=== PATIENT | female | born 1945 | race Caucasian/White ===

== ENCOUNTER 2024-07-31 13:37 | Inpatient (IN) ==
[2024-07-31 14:18] LABS: Appearance Urine Clear (Clear); Bacteria Urine Automated None Seen (None Seen); Bilirubin Urine Negative (Negative); Blood Urine 1+ (Negative); Cast Urine Automated 0-2 /lpf (0-2); Color Urine Yellow; Epithelial Cell Urine Auto 0-2 /hpf (0-2); Glucose Urine UA Negative (Negative); Ketones Urine 1+ (Negative); Leukocyte Esterase Urine Negative (Negative); Nitrite Urine Negative (Negative); Protein Urine Negative (Negative); Specific Gravity Urine 1.011 (1.000-1.030); Urobilinogen Urine Positive (Negative); WBC Urine Automated 0-5 /hpf (0-5); pH Urine 7.5 (4.5-7.5)
--- NOTE | 2024-07-31 14:29 | XRay Report ---
Chest radiograph, one view History: Sepsis Comparison: None Findings: Single AP view of the chest performed. No focal consolidation or pleural effusion. No pneumothorax. The cardiomediastinal silhouette is within normal limits. Normal pulmonary vascularity. No evidence for lymphadenopathy. No visualized bony or soft tissue abnormality. Impression: Normal chest radiograph Electronically signed by Macr Carroll 07-31-2024 2:28 PM
[2024-07-31 14:48] LABS: Basophils # (auto) 0.06 K/uL (0.00-0.20); Basophils % (auto) 0.9 %; Eosinophils # (auto) 0.02 K/uL (0.00-0.50); Eosinophils % (auto) 0.3 %; Hemoglobin 10.5 g/dl (12.0-16.0); Immature Granulocytes # (auto) 0.04 K/uL (0.01-0.20); Immature Granulocytes % (auto) 0.6 %; Lymphocytes # (auto) 0.81 K/uL (1.20-3.40); Lymphocytes % (auto) 12.3 %; Mean Corpuscular Hemoglobin 29.1 pg (25.0-34.0); Mean Corpuscular Hgb Conc 31.8 g/dL (32.0-36.0); Mean Corpuscular Volume 91.4 fL (80.0-100.0); Monocytes # (auto) 0.42 K/uL (0.11-0.59); Monocytes % (auto) 6.4 %; Neutrophils # (auto) 5.22 K/uL (1.40-6.50); Neutrophils % (auto) 79.5 %; Nucleated RBC # (auto) 0.05 K/uL (0.00-0.12); Nucleated RBC % (auto) 0.8 %; Platelet Count 364 K/uL (130-400); RDW Standard Deviation 75.8 fL (36.4-46.3); Red Blood Count 3.61 M/uL (4.20-5.40); White Blood Count 6.57 K/ul (4.8-10.8)
[2024-07-31 15:06] LABS: Albumin Level 4.8 gm/dl (3.4-5.0); BUN Creatinine Ratio 26.9 (10-20); Bilirubin Direct 0.4 mg/dl (0-0.2); Bilirubin,Total 2.3 mg/dl (0.2-1.0); Calcium 9.5 mg/dl (8.6-10.3); Creatinine Clr Calc Pharmacy 72.1 ml/min; Magnesium 1.9 mg/dl (1.7-2.4); Potassium 3.8 mmol/L (3.5-5.1); Total Protein 7.4 gm/dl (6.0-8.3)
[2024-07-31 15:12] LABS: Troponin I High Sensitivity 4.3 pg/ml (0-14)
[2024-07-31 15:13] LABS: Anisocytosis Present; Basophilic Stippling 1+; Polychromasia 2+; Stomatocytes 1+; Tear Drop Cells 1+
--- NOTE | 2024-07-31 15:35 | Emergency Department Note ---
Impression & Plan Stroke, 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ED Provider Note NAME: ALLISON MCLEOD AGE: 79 SEX: F : 1945 ARRIVES VIA: Ambulance INFORMANT: Patient, ED PROVIDER(S): Abiodun Gleason MD CHIEF COMPLAINT: 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HPI: This is a 57-year-old female seen for right leg weakness. Patient states that she had an episode of nausea and vomiting yesterday. This morning she woke up and was weak patient has she had right knee replaced about 2 to 3 years ago. Since then she has had chronic pain in this knee. She notes that today she has had reduced mobility as well as weakness in this extremity. She states she fell to the ground due to weakness. She reports no upper extremity weakness. No fevers, chills, diarrhea, chest pain or shortness of breath. She reports no previous strokes. She states she does not drink much water throughout the day or get much exercise. ROS: See above HPI for pertinent positives & negatives. A total of 10 systems reviewed and were otherwise negative. PAST MEDICAL HISTORY: See Below PAST SURGICAL HISTORY: See Below FAMILY HISTORY: See Below SOCIAL HISTORY: See Below HOME MEDICATIONS: See Below ALLERGIES: See Below VITALS: See Below PHYSICAL EXAMINATION: General: resting comfortably in no acute distress Head: Normocephalic and atraumatic Eyes: Normal inspection, extraocular muscles intact Ear, nose, throat: Normal external exam Neck: Normal range of motion Respiratory: lungs clear to auscultation bilaterally Cardiovascular: Regular rate/rhythm, no murmur GI: soft, nontender, no guarding or rebound Extremities: nontender, moves all extremities Neuro: The patient awake and alert, appropriately conversive, no focal deficits, symmetric faces, strength 4/5 in right lower extremity, strength 5/5 in left lower extremity Skin: Warm, dry, and intact MEDICAL DECISION MAKING: This is a 79-year-old female presenting for right leg weakness. Patient overall appears clinically well but has weakness in the right lower extremity. She stated is chronically weak since the knee surgery but also that her is more weak today. Overall patient is very clinically well but she does have right lower extremity weakness concerning for possible neurologic process but this could be from pain otherwise. No obvious traumas noted to the hip or knee. -Slight anemia. Otherwise no significant electrolyte disturbances, no creatinine elevation, no transaminitis. Urinalysis does not be signs of UTI. -Patient CT imaging of the head does reveal a subacute to chronic lacunar infarct as well as other chronic infarct -Based on this finding, will require admission. Differential diagnosis: Intracranial hemorrhage, stroke, TIA, UTI, arthritis Independent History obtained from: Son and daughter Diagnostics interpreted by me: ECG: ECG independently interpreted by me with normal sinus rhythm, rate of 95, left axis deviation, normal SC, normal QRS, normal QTc, no ST segment elevations consistent with STEMI criteria, PVC/PAC occasionally noted Cardiac Monitoring: An order was placed for continuous cardiac monitoring. The monitor shows a rate of 98 with sinus rhythm. Past Med/Surg History Problem List (Updated 07/31/24 @ 18:24 by Cade Parsons MD) 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Social History Smoking Status: Never smoker Preferred Language: Mongolian Feels Safe at Home: Yes Allergies Allergies Allergy/AdvReac Type Severity Reaction Status Date / Time aspirin AdvReac Mild per pt she Unverified 07/31/24 15:10 gets "really bad heartburn and indigestion" Home Meds Home Medications Medication Instructions Recorded Confirmed acetaminophen 300 mg-codeine 30 mg 1 - 2 tab PO QID PRN Pain 07/31/24 07/31/24 tablet furosemide 20 mg tablet 20 mg PO UD PRN swelling 07/31/24 07/31/24 levothyroxine 100 mcg tablet 100 mcg PO DAILY 07/31/24 07/31/24 Results & Data (ED) Vital Signs Vital Signs - 24 hr 07/31/24 13:44 07/31/24 13:44 07/31/24 13:56 Temperature 36.6 C Temperature Source Oral Pulse Rate 95 H Pulse Rate [Apical] Pulse Rate from SpO2 Sensor Pulse Strength [Apical] Respiratory Rate 18 Respiratory Effort / Characteristics Respiratory Depth Respiratory Pattern Blood Pressure 163/95 H Blood Pressure [Right Arm] Blood Pressure Mean 117 Blood Pressure Mean [Right Arm] Blood Pressure Position [Right Arm] Pulse Oximetry 96 Oxygen Delivery Method Room Air Room Air Room Air Sepsis New/Unexplained Change in Mental Status No Sepsis Action Taken by Nursing No Action Required 07/31/24 14:21 07/31/24 14:33 07/31/24 14:34 Temperature Temperature Source Pulse Rate 100 H 96 H Pulse Rate [Apical] Pulse Rate from SpO2 Sensor 91 H Pulse Strength [Apical] Respiratory Rate 26 H 18 Respiratory Effort / Characteristics Respiratory Depth Respiratory Pattern Blood Pressure 155/82 H Blood Pressure [Right Arm] Blood Pressure Mean 129 Blood Pressure Mean [Right Arm] Blood Pressure Position [Right Arm] Pulse Oximetry 95 95 Oxygen Delivery Method Room Air Room Air Sepsis New/Unexplained Change in Mental Status Sepsis Action Taken by Nursing 07/31/24 14:59 07/31/24 15:00 07/31/24 17:27 Temperature Temperature Source Pulse Rate Pulse Rate [Apical] 95 H 94 H 98 H Pulse Rate from SpO2 Sensor Pulse Strength [Apical] Normal Normal Respiratory Rate 19 17 19 Respiratory Effort / Characteristics Non-Labored Spontaneous Non-Labored Spontaneous Non-Labored Spontaneous Respiratory Depth Normal Normal Normal Respiratory Pattern Regular Regular Regular Blood Pressure Blood Pressure [Right Arm] 155/82 H 142/75 H 115/77 Blood Pressure Mean Blood Pressure Mean [Right Arm] 106 97 89 Blood Pressure Position [Right Arm] Sitting Lying Lying Pulse Oximetry 98 95 95 Oxygen Delivery Method Room Air Room Air Room Air Sepsis New/Unexplained Change in Mental Status Sepsis Action Taken by Nursing Laboratory Data 07/31/24 14:30 07/31/24 14:30 Lab Results 07/31/24 07/31/24 Range/Units 14:30 Unknown WBC 6.57 (4.8-10.8) K/ul RBC 3.61 L (4.20-5.40) M/uL Hgb 10.5 L (12.0-16.0) g/dl Hct 33.0 L (37.0-47.0) % MCV 91.4 (80.0-100.0) fL MCH 29.1 (25.0-34.0) pg MCHC 31.8 L (32.0-36.0) g/dL RDW Std Deviation 75.8 H (36.4-46.3) fL RDW Coeff of Romelia 23.0 H (11.5-14.5) % Plt Count 364 (130-400) K/uL MPV 11.0 (9.4-12.4) fL Immature Gran % (Auto) 0.6 % Neut % (Auto) 79.5 % Lymph % (Auto) 12.3 % [place] % (Auto) 6.4 % Eos % (Auto) 0.3 % Baso % (Auto) 0.9 % Neut # (Auto) 5.22 (1.40-6.50) K/uL Lymph # (Auto) 0.81 L (1.20-3.40) K/uL [place] # (Auto) 0.42 (0.11-0.59) K/uL Eos # (Auto) 0.02 (0.00-0.50) K/uL Baso # (Auto) 0.06 (0.00-0.20) K/uL Immature Gran # (Auto) 0.04 (0.01-0.20) K/uL Absolute Nucleated RBC 0.05 (0.00-0.12) K/uL Nucleated RBC % (auto) 0.8 % Polychromasia 2+ Basophilic Stippling 1+ Anisocytosis Present Tear Drop Cells 1+ Stomatocytes 1+ Sodium 139 (136-145) mmol/L Potassium 3.8 (3.5-5.1) mmol/L Chloride 103 (98-107) mmol/L Carbon Dioxide 30 (21-32) mmol/L Anion Gap 6 (3-11) BUN 14 (6-23) mg/dl Creatinine 0.52 L (0.6-1.2) mg/dl Est Cr Clr Drug Dosing 72.1 ml/min eGFR 93.86 BUN/Creatinine Ratio 26.9 H (10-20) Glucose 101 H (70-99(Fasting)) mg/dl Calcium 9.5 (8.6-10.3) mg/dl Magnesium 1.9 (1.7-2.4) mg/dl Total Bilirubin 2.3 H (0.2-1.0) mg/dl Direct Bilirubin 0.4 H (0-0.2) mg/dl AST 13 (13-39) U/L ALT 11 (7-52) U/L Alkaline Phosphatase 45 (34-104) U/L Troponin I High Sens 4.3 (0-14) pg/ml Total Protein 7.4 (6.0-8.3) gm/dl Albumin 4.8 (3.4-5.0) gm/dl Urine Color Yellow Urine Appearance Clear (Clear) Urine pH 7.5 (4.5-7.5) Ur Specific [place] 1.011 (1.000-1.030) Urine Protein Negative (Negative) Urine Glucose (UA) Negative (Negative) Urine Ketones 1+ H (Negative) Urine Blood 1+ H (Negative) Urine Nitrite Negative (Negative) Urine Bilirubin Negative (Negative) Urine Urobilinogen Positive H (Negative) Ur Leukocyte Esterase Negative (Negative) Urine WBC (Auto) 0-5 (0-5) /hpf Urine RBC (Auto) 11-20 H (0-2) /hpf U Hyaline Cast (Auto) 0-2 (0-2) /lpf U Epithel Cells (Auto) 0-2 (0-2) /hpf Urine Bacteria (Auto) None Seen (None Seen) Imaging Data Radiologist's Impression: Chest X-Ray 07/31/24 13:53 Chest radiograph, one view History: Sepsis Comparison: None Findings: Single AP view of the chest performed. No focal consolidation or pleural effusion. No pneumothorax. The cardiomediastinal silhouette is within normal limits. Normal pulmonary vascularity. No evidence for lymphadenopathy. No visualized bony or soft tissue abnormality. Impression: Normal chest radiograph Electronically signed by Marc Carroll 07-31-2024 2:[address] 07/31/24 15:33 EXAM: CT head/brain wo con CLINICAL HISTORY: R leg weakness TECHNIQUE: Axial non-contrast CT scan of the brain was performed from the skull base to the high parietal region. One of the following dose reduction techniques were utilized for this exam: Automated exposure control, adjustment of the mA and/or kV according to patient size, use of iterative reconstruction. COMPARISON: None. FINDINGS: Brain Parenchyma: Evidence of deep periventricular and subcortical white matter hypodensities consistent with chronic vessel ischemia. Small hypo-dense focus near CSF density is seen in the left basal ganglia likely representing chronic lacunar infarct (best appreciated in sagittal images) Another tiny ill-defined left thalamic hypo dense focus suggesting lacunar infarct of indeterminate age. No other abnormal attenuation of the cerebral hemispheres, cerebellum, and brainstem. No evidence of acute hemorrhage, or mass effect. Calcification seen involving left vertebral artery Ventricular System: Prominent ventricles No evidence of hydrocephalus or ventricular enlargement. Subarachnoid Spaces: Prominent sulci and cisterns. No evidence of subarachnoid hemorrhage or extra-axial fluid collections. Cerebellum and Brainstem: Normal size and signal. No masses, lesions, or areas of abnormal density. Orbits: Normal appearance of the globes, optic nerves, and extraocular muscles. No evidence of orbital masses or abnormal density. Sinuses: Clear paranasal sinuses. No evidence of sinusitis or mucosal thickening. Mastoid Air Cells: Clear mastoid air cells. No evidence of mastoiditis. Skull: Normal skull morphology. IMPRESSION: 1. Left thalamic tiny ill-defined hypo dense focus as described may suggests lacunar infarct of indeterminate age, likely subacute to chronic. MRI study is suggested if warranted clinically. 2. Left basal ganglia chronic lacunar infarct likley chronic as described. 3. Chronic small vessel ischemia with age matched cerebral involutional changes. 4. No acute hemorrhage. Electronically signed by Josué Schaffer 07-31-2024 4:49 PM Discharge Plan Visit Data Chief Complaint: Illness Stated Complaint: ILLNESS ED Provider: Abiodun Gleason Discharge Problem: Stroke, 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Forms Stand Alone Forms: [employer] Prescriptions Prescriptions: No Action acetaminophen-codeine 300-30 mg tablet 1 - 2 tab PO QID PRN (Reason: Pain) Rx Instructions: per pt she usually does 2 tabs tid levothyroxine 100 mcg tablet 100 mcg PO DAILY furosemide 20 mg tablet 20 mg PO UD PRN (Reason: swelling) Rx Instructions: per pt she lois takes a couple times a month Referrals Referrals: Italo Barboza [Primary Care Provider] - Discharge Problem: Stroke Qualifiers: CVA mechanism: unspecified Qualified Code(s): I63.9 - Cerebral infarction, unspecified
--- NOTE | 2024-07-31 16:51 | CT Scan Report ---
EXAM: CT head/brain wo con CLINICAL HISTORY: R leg weakness TECHNIQUE: Axial non-contrast CT scan of the brain was performed from the skull base to the high parietal region. One of the following dose reduction techniques were utilized for this exam: Automated exposure control, adjustment of the mA and/or kV according to patient size, use of iterative reconstruction. COMPARISON: None. FINDINGS: Brain Parenchyma: Evidence of deep periventricular and subcortical white matter hypodensities consistent with chronic vessel ischemia. Small hypo-dense focus near CSF density is seen in the left basal ganglia likely representing chronic lacunar infarct (best appreciated in sagittal images) Another tiny ill-defined left thalamic hypo dense focus suggesting lacunar infarct of indeterminate age. No other abnormal attenuation of the cerebral hemispheres, cerebellum, and brainstem. No evidence of acute hemorrhage, or mass effect. Calcification seen involving left vertebral artery Ventricular System: Prominent ventricles No evidence of hydrocephalus or ventricular enlargement. Subarachnoid Spaces: Prominent sulci and cisterns. No evidence of subarachnoid hemorrhage or extra-axial fluid collections. Cerebellum and Brainstem: Normal size and signal. No masses, lesions, or areas of abnormal density. Orbits: Normal appearance of the globes, optic nerves, and extraocular muscles. No evidence of orbital masses or abnormal density. Sinuses: Clear paranasal sinuses. No evidence of sinusitis or mucosal thickening. Mastoid Air Cells: Clear mastoid air cells. No evidence of mastoiditis. Skull: Normal skull morphology. IMPRESSION: 1. Left thalamic tiny ill-defined hypo dense focus as described may suggests lacunar infarct of indeterminate age, likely subacute to chronic. MRI study is suggested if warranted clinically. 2. Left basal ganglia chronic lacunar infarct likley chronic as described. 3. Chronic small vessel ischemia with age matched cerebral involutional changes. 4. No acute hemorrhage. Electronically signed by Josué Schaffer 07-31-2024 4:49 PM
[2024-07-31] MEDS ORDERED: ACETAMINOPHEN 325 MG TAB PO PRN (18:11)
[2024-07-31] MEDS ORDERED: ALUMINUM/MAGNESIUM SUSP 30 ML UDC PO PRN (18:11)
[2024-07-31] MEDS ORDERED: PHARMACIST DISCHARGE MED REC CONSULT PRN (18:11)
--- NOTE | 2024-07-31 18:31 | History & Physical Report ---
Date of Service July 31, 2024 Assessment & Plan (1) Right leg weakness: Plan: Assessment/plan 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Possible Acute CVA Hx of Prior CVA on CT head Patient presents to the hospital with right lower extremity; Onset was around 11 AM on 07/30 CT head without contrast showed left thalamic tiny ill-defined hypodense focus which may suggest lacunar infarct of indeterminate age. Left basal ganglia chronic lacunar infarct likely chronic. EKG shows sinus rhythm with occasional PVC and PACs Patient presentation concerning for acute CVA; will give aspirin 325 mg, Plavix, Lipitor 40 mg once a day. Patient reports history of reflux with aspirin before but willing to try it again. will add Protonix. Obtain CTA head and neck, MRI brain without contrast Obtain lipid panel, A1c Obtain echocardiogram Telemonitoring PT OT evaluation Neurology consult Anemiahemoglobin of 10.5; normocytic. Unknown baseline. Obtain ferritin, transferrin saturation, vitamin B12 and folic acid level Plan of care discussed with patient's daughter and son at bedside. Answer questions/queries DVT prophylaxis heparin Time spent evaluating patient, direct bedside care, chart review, placing orders , interpretation of diagnostic studies, discussion with consultants, patient, and family members, as well as other required patient management activities is 75 minutes Please note the above document was generated using voice recognition software. It may contain grammatical, syntax or spelling errors. Any formal questions or concerns about the content, text or information contained within the body of this dictation should be directly addressed to the provider for clarification History of Present Illness Chief Complaint: 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for 1 day Primary Care Provider: Italo Barboza History obtained from chart review and interview with the patient Past medical history of Mnire's disease, hypothyroidism, knee surgery Patient presents to the hospital with report of right knee weakness since yesterday. Patient reports that she has acute onset of right lower extremity weakness around 11 AM yesterday. She reports that she was ambulating without any difficulty prior to the onset of the weakness; has been having difficulty with movement ever since the episode. She reports episode of visual blurriness earlier today but denies any weakness/numbness of any other body part, chest pain, shortness of breath, abdominal pain or urinary symptoms. She denies any history of trauma, no history of back pain, numbness/tingling sensation down the leg. On presentation to the ED, she was normotensive, afebrile and saturating well on room air. CBC showed hemoglobin of 10.5. BUN/creatinine within normal limits. Total bilirubin of 2.3 and direct bilirubin 0.4 urinalysis did not suggest infection. CT head without contrast showed left thalamic tiny ill-defined hypodense focus which may suggest lacunar infarct of indeterminate age. Left basal ganglia chronic lacunar infarct likely chronic. Patient was then referred for admission Allergies Allergy/AdvReac Type Severity Reaction Status Date / Time aspirin AdvReac Mild per pt she Unverified 07/31/24 15:10 gets "really bad heartburn and indigestion" Home Medications Medication Instructions Recorded Confirmed Type acetaminophen 300 mg-codeine 30 mg 1 - 2 tab PO QID PRN Pain 07/31/24 07/31/24 History tablet furosemide 20 mg tablet 20 mg PO UD PRN swelling 07/31/24 07/31/24 History levothyroxine 100 mcg tablet 100 mcg PO DAILY 07/31/24 07/31/24 History Past Med/Surg History Problem List (Updated 07/31/24 @ 18:24 by Cade Parsons MD) 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Social History Smoking Status: Never smoker Preferred Language: Indonesian Feels Safe at Home: Yes Review of Systems Review of Systems: All systems reviewed & are unremarkable except as noted in Subjective Physical Exam Physical Exam: On physical examination; Constitutional: WD/WN, vitals as above, NAD, sitting up in bed, pleasant, conversing easily Respiratory: normal respiratory effort, lungs clear to auscultation, no wheeze, rales, rhonchi. Normal insp/exp effort, no accessory muscle use Cardiovascular: RRR, no murmur, no edema Vessels: no JVD or carotid bruit Chest: normal inspection of chest Abdomen: normal bowel sounds, soft, nontender, no hepatosplenomegaly Skin: no rashes, warm and dry normal turgor Neurologic: PERRL, EOMI, accommodation nl, no face palsy, no dysarthria CN's II- XI intact bilaterally. Strength in right lower extremity of 4/5; otherwise strength in all extremities within normal limits. sensation intact Psychiatric: A+Ox3, euthymic affect Results & Data Results & Data Vital Signs (Past 12 Hours) Vital Signs Temp Pulse Pulse Resp BP BP Pulse Ox 07/31/24 17:27 98 H 19 115/77 95 07/31/24 15:00 94 H 17 142/75 H 95 07/31/24 14:59 95 H 19 155/82 H 98 07/31/24 14:34 155/82 H 07/31/24 14:33 96 H 18 95 07/31/24 14:21 100 H 26 H 95 07/31/24 13:56 07/31/24 13:44 07/31/24 13:44 36.6 C 95 H 18 163/95 H 96 O2 Del Method 07/31/24 17:27 Room Air 07/31/24 15:00 Room Air 07/31/24 14:59 Room Air 07/31/24 14:34 07/31/24 14:33 Room Air 07/31/24 14:21 Room Air 07/31/24 13:56 Room Air 07/31/24 13:44 Room Air 07/31/24 13:44 Room Air
[2024-07-31] MEDS: OPTIRAY 320 125ml IV ONE (18:40)
[2024-07-31] MEDS: CLOPIDOGREL BISULFATE 75 MG TAB PO SCH (18:45)
[2024-07-31] MEDS: SODIUM CHLORIDE 0.9% 500 ML IV SCH (18:45)
[2024-07-31] MEDS: ASPIRIN CHEW 324 MG PO STA (18:45)
[2024-07-31] MEDS: PANTOprazole 40 MG TAB PO STA (18:45)
[2024-07-31] MEDS: ATORVASTATIN 40 MG TAB PO SCH (18:45)
--- NOTE | 2024-07-31 19:15 | CT Scan Report ---
CT angiogram of the neck CT angiogram of the brain with contrast Provided History: Neuro deficit Comparison: None Technique: HEAD and NECK CTA: During rapid bolus intravenous injection of nonionic contrast material, axial images were obtained using thin collimation multidetector helical technique from the base of the neck through the of vertex of the head. This CT angiogram data was reconstructed at thin intervals with mild overlap. 3D reconstructions were obtained. The axial source images, multiplanar reformations, 3D reconstructions in both maximum intensity projection display and volume rendered models were reviewed. Dose reduction techniques were achieved by using automatic exposure control and/or adjustment of mA and/or kV according to patient size and/or use of iterative reconstruction technique. Findings: Head CTA demonstrates no aneurysm or stenosis of the major intracranial arteries. Neck CTA demonstrates no stenosis of the major cervical arteries. Tortuosity with a retrotracheal course of the right common carotid artery. There are moderate calcifications at the carotid bulbs bilaterally without hemodynamically significant stenosis. There is a retropharyngeal course bilaterally of the internal carotid arteries. The origins of the great vessels from the aortic arch are patent. No mass is noted within the visualized portions of the cervical soft tissues or lung apices. Impression: 1. Head CTA demonstrates no aneurysm or stenosis of the major intracranial arteries, 2. Neck CTA demonstrates no stenosis of the major cervical arteries. Electronically signed by Marc Carroll 07-31-2024 7:15 PM
[2024-07-31] MEDS: HEPARIN SOD 5,000 UNIT/0.5 ML VIAL SQ SCH (21:51)
[2024-08-01] MEDS: ACETAMINOPHEN W/CODEINE #3 1 TAB PO PRN
--- NOTE | 2024-08-01 01:36 | Magnetic Resonance Report ---
Exam(s): MRI HEAD Without Contrast EXAM: MR Head Without Intravenous Contrast CLINICAL HISTORY: Reason for exam: concern for stroke. TECHNIQUE: Magnetic resonance images of the head/brain without intravenous contrast in multiple planes. COMPARISON: Prior head CT from July 31, 2024. FINDINGS: Brain: There is a small acute/subacute ischemic injury of the left thalamus without evidence of hemorrhagic transformation. There is a remote intraparenchymal hemorrhage in the left thalamus with hemosiderin staining. Moderate nonspecific white matter changes. No mass. No acute hemorrhage. The flow voids at the base the brain are intact. Ventricles: Unremarkable. No ventriculomegaly. Bones/joints: There is loss of normal T1 bright bone marrow signal within the calvarium, skull base and proximal cervical spine concerning for bone marrow replacement process. No acute fracture. Sinuses: Unremarkable as visualized. No acute sinusitis. Mastoid air cells: Unremarkable as visualized. No mastoid effusion. Orbits: Unremarkable as visualized. IMPRESSION: There is a small acute/subacute ischemic injury of the left thalamus without evidence of hemorrhagic transformation. Communications: Verify Receipt Electronically signed by: Nemo Rosen MD 08/01/24 01:35 AM
[2024-08-01] MEDS: LEVOTHYROXINE SODIUM 100 MCG TABLET PO SCH (05:20)
[2024-08-01 06:11] LABS: Basophils # (auto) 0.07 K/uL (0.00-0.20); Basophils % (auto) 1.2 %; Eosinophils # (auto) 0.02 K/uL (0.00-0.50); Eosinophils % (auto) 0.3 %; Hematocrit (blood only) 27.2 % (37.0-47.0); Hemoglobin 8.5 g/dl (12.0-16.0); Immature Granulocytes # (auto) 0.03 K/uL (0.01-0.20); Immature Granulocytes % (auto) 0.5 %; Lymphocytes # (auto) 1.41 K/uL (1.20-3.40); Lymphocytes % (auto) 23.6 %; Mean Corpuscular Hemoglobin 28.8 pg (25.0-34.0); Mean Corpuscular Hgb Conc 31.3 g/dL (32.0-36.0); Mean Corpuscular Volume 92.2 fL (80.0-100.0); Mean Platelet Volume 11.5 fL (9.4-12.4); Monocytes # (auto) 0.56 K/uL (0.11-0.59); Monocytes % (auto) 9.4 %; Neutrophils # (auto) 3.88 K/uL (1.40-6.50); Nucleated RBC # (auto) 0.06 K/uL (0.00-0.12); Platelet Count 297 K/uL (130-400); RDW Coefficient of Variation 23.3 % (11.5-14.5); Red Blood Count 2.95 M/uL (4.20-5.40); White Blood Count 5.97 K/ul (4.8-10.8)
[2024-08-01 06:33] LABS: BUN Creatinine Ratio 29.8 (10-20); Calcium 8.3 mg/dl (8.6-10.3); Creatinine Clr Calc Pharmacy 79.7 ml/min; Potassium 3.4 mmol/L (3.5-5.1)
[2024-08-01 06:47] LABS: Anisocytosis Present; Polychromasia 2+; Tear Drop Cells 1+
[2024-08-01 06:53] LABS: Ferritin 1286.7 ng/ml (8-388)
[2024-08-01 06:54] LABS: Folate (Folic Acid),Ser orPlas 13.26 ng/ml (>5.38)
[2024-08-01] MEDS: ASPIRIN 81 MG ECTAB PO SCH (07:37)
[2024-08-01] MEDS: PANTOprazole 40 MG TAB PO SCH (07:38)
[2024-08-01 07:57] LABS: Estimated Average Glucose 91 mg/dl; Hemoglobin A1C 4.8 % (4.5-5.6)
[2024-08-01 09:16] LABS: Chol HDL Ratio 2.5 (0-5)
--- NOTE | 2024-08-01 10:55 | Neurology Consultation ---
Date of Consultation August 01, 2024 Assessment & Plan (1) Acute ischemic stroke: Left thalamic stroke If patient is unable to tolerate ASA then recommend clopidogrel 300mg load followed by 75mg daily if able to undergo platelet reactivity testing to confirm response; otherwise recommend Brillinta 90mg BID in addition to high dose statin therapy. Recommend continued stroke work up to include the following: Echocardiogram as part of complete stroke workup Continue frequent neurological assessments Obtain stat CT brain without contrast for any acute neurological decline Continue to monitor/control blood pressure & blood glucose Continue to monitor telemetry closely Recommend ZioPatch at DC if no evidence of arrhythmia during inpatient monitoring Continue to monitor renal and hepatic function, keep euvolemic Metabolic workup should include hgbA1c, fasting lipids, homocysteine, TSH, D Dimer, RPR, urinalysis Ok from neurology perspective for VTE prophylaxis PT/OT/SLT to eval and treat Recommend eval for CLAUDIA and consider outpatient polysomnography Telehealth Consultation Telehealth Information Telehealth Information: I performed this visit using a real-time telehealth connection between my location and the patients location ([facility]). After connecting through interactive tele-video, patient was identified by name and date of and/or wristband check.Patient (or authorized healthcare chemical sales representative) was informed that this was a telemedicine visit and it was being conducted confidentially over secure lines. My office door was closed and no one else was present in the room with me.Patient (or authorized healthcare chemical sales representative) provided consent to proceed with the visit, expressed an understanding of privacy and security of the telemedicine visit, and gave p ermission to have a hospital chemical sales representative in the room in order to assist with the visit and to conduct portions of the visit, as needed. I informed the patient (or authorized healthcare chemical sales representative) that I reviewed their record and presented the opportunity for them to ask any questions regarding the visit today. The patient agreed to participate. History of Present Illness Reason for Consultation: Stroke like symptoms Requesting Physician: Dr. Trejo Attending Physician: Elina Trejo MD History of Present Illness 79yo right handed female reportedly began having dital RLE weakness and "floppiness" starting Thursday at approx 11AM. 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 She has undergone stroke imaging including CT brain without contrast, personally reviewed today, revealing no overt evidence of hemorrhage. CT angiographic studies of head and neck, also personally reviewed today, reveal no overt evidence of large vessel occlusion or significant/flow limiting stenosis. MRI brain without contrast depicts area of acute to subacute ischemic stroke deep left subcortical thalamic region. I have performed televideo consultation. She is alert & oriented; able to answer all questions appropriately, name objects on televideo monitor, repeat phrases and perform complex/embedded commands without deficit. Neurological exam reveals mild RLE weakness and very mild RUE drift. She reports feeling decreased right hand luster applicator which has vastly improved and also notes having difficultly with writing for the last week. She denies hx of trauma or changes in activity recently. No reported cephalgia or cervicalgia. Denies chest pain/palpitations or shortness of breath. No reported changes in vision hearing dizziness syncope seizure like activity or paresthesia. Denies recent fevers chills nausea vomiting changes in bowels or bladder. Denies recent medication changes, recent illness or sick contacts, no reported recent travel. Allergies Allergy/AdvReac Type Severity Reaction Status Date / Time aspirin AdvReac Mild per pt she Unverified 07/31/24 15:10 gets "really bad heartburn and indigestion" Home Medications Medication Instructions Recorded Confirmed Type acetaminophen 300 mg-codeine 30 mg 1 - 2 tab PO QID PRN Pain 07/31/24 07/31/24 History tablet furosemide 20 mg tablet 20 mg PO UD PRN swelling 07/31/24 07/31/24 History levothyroxine 100 mcg tablet 100 mcg PO DAILY 07/31/24 07/31/24 History Patient History Social History Smoking Status: Never smoker Hx Alcohol Use: No Hx Substance Use: No Preferred Language: Croatian Communication Ability: Effective Shipping/Receiving Clerk Required: No Beliefs That Will Affect Care: None Current Living Situation: Family Current Living Situation Comment: home with son Other Information That Helps Us Care for You: No Feels Safe at Home: Yes Safety Concerns: Feels Safe At This Time Assistive Devices: Cane, Denture - Upper, Denture - Lower, Glasses, Walker and Wheelchair Physical Exam Neurological Examination: Mental Status: Awake and alert. Oriented to person, place, and time. Fluency naming repetition and comprehension appear grossly intact. Affect remains appropriate. CN testing: I: Deferred II: Reports no changes in visual acuity III/IV/: No evidence of gaze preference, hippus, nystagmus or roving eye movements V: Facial sensation reportedly grossly intact to light touch bilaterally VII: Facial movements appear without evidence of asymmetry VIII: Hearing -chronic unilateral hearing loss IX/X: Palate is unable to be accurately assess via telemedicine XI: Shoulder shrug appears symmetric/ grossly intact bilaterally XII: Tongue protrudes midline without evidence of biting Motor exam: Mild right hemiparesis=RLE>RUE- improving/nearly resolved Sensory: Sensation is reportedly grossly intact throughout Coordination: No apparent evidence of dysmetria or dysdiadochokinesia Reflexes: Deferred Gait: Deferred Results & Data Vital Signs (Past 12 Hours) Vital Signs Temp Pulse Pulse Pulse Resp BP Pulse Ox 08/01/24 08:21 37.9 C H 84 17 136/78 94 08/01/24 07:00 77 08/01/24 03:36 36.2 C L 75 16 122/68 94 O2 Del Method 08/01/24 08:21 Room Air 08/01/24 07:00 08/01/24 03:36 Room Air Laboratory Results Abnormal lab results 07/31/24 07/31/24 08/01/24 Range/Units 14:30 Unknown 05:20 RBC 3.61 L 2.95 L (4.20-5.40) M/uL Hgb 10.5 L 8.5 L (12.0-16.0) g/dl Hct 33.0 L 27.2 L (37.0-47.0) % MCHC 31.8 L 31.3 L (32.0-36.0) g/dL RDW Std Deviation 75.8 H 76.0 H (36.4-46.3) fL RDW Coeff of Romelia 23.0 H 23.3 H (11.5-14.5) % Lymph # (Auto) 0.81 L (1.20-3.40) K/uL Potassium 3.4 L (3.5-5.1) mmol/L Creatinine 0.52 L 0.47 L (0.6-1.2) mg/dl BUN/Creatinine Ratio 26.9 H 29.8 H (10-20) Glucose 101 H (70-99(Fasting)) mg/dl Calcium 8.3 L (8.6-10.3) mg/dl Transferrin 151 L (200-360) mg/dl Ferritin 1286.7 H (8-388) ng/ml Total Bilirubin 2.3 H (0.2-1.0) mg/dl Direct Bilirubin 0.4 H (0-0.2) mg/dl Urine Ketones 1+ H (Negative) Urine Blood 1+ H (Negative) Urine Urobilinogen Positive H (Negative) Urine RBC (Auto) 11-20 H (0-2) /hpf Diagnostic Findings Chest X-Ray 07/31/24 13:53 Chest radiograph, one view History: Sepsis Comparison: None Findings: Single AP view of the chest performed. No focal consolidation or pleural effusion. No pneumothorax. The cardiomediastinal silhouette is within normal limits. Normal pulmonary vascularity. No evidence for lymphadenopathy. No visualized bony or soft tissue abnormality. Impression: Normal chest radiograph Electronically signed by Marc Carroll 07-31-2024 2:[address] 07/31/24 15:33 EXAM: CT head/brain wo con CLINICAL HISTORY: R leg weakness TECHNIQUE: Axial non-contrast CT scan of the brain was performed from the skull base to the high parietal region. One of the following dose reduction techniques were utilized for this exam: Automated exposure control, adjustment of the mA and/or kV according to patient size, use of iterative reconstruction. COMPARISON: None. FINDINGS: Brain Parenchyma: Evidence of deep periventricular and subcortical white matter hypodensities consistent with chronic vessel ischemia. Small hypo-dense focus near CSF density is seen in the left basal ganglia likely representing chronic lacunar infarct (best appreciated in sagittal images) Another tiny ill-defined left thalamic hypo dense focus suggesting lacunar infarct of indeterminate age. No other abnormal attenuation of the cerebral hemispheres, cerebellum, and brainstem. No evidence of acute hemorrhage, or mass effect. Calcification seen involving left vertebral artery Ventricular System: Prominent ventricles No evidence of hydrocephalus or ventricular enlargement. Subarachnoid Spaces: Prominent sulci and cisterns. No evidence of subarachnoid hemorrhage or extra-axial fluid collections. Cerebellum and Brainstem: Normal size and signal. No masses, lesions, or areas of abnormal density. Orbits: Normal appearance of the globes, optic nerves, and extraocular muscles. No evidence of orbital masses or abnormal density. Sinuses: Clear paranasal sinuses. No evidence of sinusitis or mucosal thickening. Mastoid Air Cells: Clear mastoid air cells. No evidence of mastoiditis. Skull: Normal skull morphology. IMPRESSION: 1. Left thalamic tiny ill-defined hypo dense focus as described may suggests lacunar infarct of indeterminate age, likely subacute to chronic. MRI study is suggested if warranted clinically. 2. Left basal ganglia chronic lacunar infarct likley chronic as described. 3. Chronic small vessel ischemia with age matched cerebral involutional changes. 4. No acute hemorrhage. Electronically signed by Josué Schaffer 07-31-2024 4:49 PM Brain MRI 07/31/24 18:11 CR Exam(s): MRI HEAD Without Contrast EXAM: MR Head Without Intravenous Contrast CLINICAL HISTORY: Reason for exam: concern for stroke. TECHNIQUE: Magnetic resonance images of the head/brain without intravenous contrast in multiple planes. COMPARISON: Prior head CT from July 31, 2024. FINDINGS: Brain: There is a small acute/subacute ischemic injury of the left thalamus without evidence of hemorrhagic transformation. There is a remote intraparenchymal hemorrhage in the left thalamus with hemosiderin staining. Moderate nonspecific white matter changes. No mass. No acute hemorrhage. The flow voids at the base the brain are intact. Ventricles: Unremarkable. No ventriculomegaly. Bones/joints: There is loss of normal T1 bright bone marrow signal within the calvarium, skull base and proximal cervical spine concerning for bone marrow replacement process. No acute fracture. Sinuses: Unremarkable as visualized. No acute sinusitis. Mastoid air cells: Unremarkable as visualized. No mastoid effusion. Orbits: Unremarkable as visualized. IMPRESSION: There is a small acute/subacute ischemic injury of the left thalamus without evidence of hemorrhagic transformation. Communications: Verify Receipt Electronically signed by: Nemo Rosen MD 08/01/24 01:35 AM Head CTA 07/31/24 18:11 CT angiogram of the neck CT angiogram of the brain with contrast Provided History: Neuro deficit Comparison: None Technique: HEAD and NECK CTA: During rapid bolus intravenous injection of nonionic contrast material, axial images were obtained using thin collimation multidetector helical technique from the base of the neck through the of vertex of the head. This CT angiogram data was reconstructed at thin intervals with mild overlap. 3D reconstructions were obtained. The axial source images, multiplanar reformations, 3D reconstructions in both maximum intensity projection display and volume rendered models were reviewed. Dose reduction techniques were achieved by using automatic exposure control and/or adjustment of mA and/or kV according to patient size and/or use of iterative reconstruction technique. Findings: Head CTA demonstrates no aneurysm or stenosis of the major intracranial arteries. Neck CTA demonstrates no stenosis of the major cervical arteries. Tortuosity with a retrotracheal course of the right common carotid artery. There are moderate calcifications at the carotid bulbs bilaterally without hemodynamically significant stenosis. There is a retropharyngeal course bilaterally of the internal carotid arteries. The origins of the great vessels from the aortic arch are patent. No mass is noted within the visualized portions of the cervical soft tissues or lung apices. Impression: 1. Head CTA demonstrates no aneurysm or stenosis of the major intracranial arteries, 2. Neck CTA demonstrates no stenosis of the major cervical arteries. Electronically signed by Marc Carroll 07-31-2024 7:15 PM Neck CTA 07/31/24 18:11 CT angiogram of the neck CT angiogram of the brain with contrast Provided History: Neuro deficit Comparison: None Technique: HEAD and NECK CTA: During rapid bolus intravenous injection of nonionic contrast material, axial images were obtained using thin collimation multidetector helical technique from the base of the neck through the of vertex of the head. This CT angiogram data was reconstructed at thin intervals with mild overlap. 3D reconstructions were obtained. The axial source images, multiplanar reformations, 3D reconstructions in both maximum intensity projection display and volume rendered models were reviewed. Dose reduction techniques were achieved by using automatic exposure control and/or adjustment of mA and/or kV according to patient size and/or use of iterative reconstruction technique. Findings: Head CTA demonstrates no aneurysm or stenosis of the major intracranial arteries. Neck CTA demonstrates no stenosis of the major cervical arteries. Tortuosity with a retrotracheal course of the right common carotid artery. There are moderate calcifications at the carotid bulbs bilaterally without hemodynamically significant stenosis. There is a retropharyngeal course bilaterally of the internal carotid arteries. The origins of the great vessels from the aortic arch are patent. No mass is noted within the visualized portions of the cervical soft tissues or lung apices. Impression: 1. Head CTA demonstrates no aneurysm or stenosis of the major intracranial arteries, 2. Neck CTA demonstrates no stenosis of the major cervical arteries. Electronically signed by Marc Carroll 07-31-2024 7:15 PM Medications Administered Home Medications Medication Instructions Recorded Confirmed Last Taken acetaminophen 300 mg-codeine 30 mg 1 - 2 tab PO QID PRN Pain 07/31/24 07/31/24 07/31/24 06:30 tablet furosemide 20 mg tablet 20 mg PO UD PRN swelling 07/31/24 07/31/24 Unknown levothyroxine 100 mcg tablet 100 mcg PO DAILY 07/31/24 07/31/24 07/31/24 06:30 Active Medications Generic Name Dose Route Start Last Admin Trade Name Nilsonq PRN Reason Stop Dose Admin Acetaminophen/Codeine Phosphate 1 - 2 tab 07/31/24 20:07 08/01/24 00:00 Acetaminophen W/Codeine #3 1 Tab PO 08/30/24 20:06 2 tab QID PRN Administration Pain Aspirin 81 mg 08/01/24 09:00 08/01/24 07:37 Aspirin 81 Mg Ectab PO 08/31/24 08:59 81 mg DAILY JORGE Administration Atorvastatin Calcium 40 mg 07/31/24 18:15 08/01/24 08:33 Atorvastatin 40 Mg Tab PO 08/30/24 18:14 40 mg QAM JORGE Administration Clopidogrel Bisulfate 75 mg 07/31/24 18:15 08/01/24 08:33 Clopidogrel Bisulfate 75 Mg Tab PO 08/30/24 18:14 75 mg QAM JORGE Administration Heparin Sodium (Porcine) 5,000 units 07/31/24 22:00 08/01/24 05:15 Heparin Sod 5,000 Unit/0.5 Ml Vial SQ 08/30/24 21:59 5,000 units Q8 JORGE Administration Levothyroxine Sodium 100 mcg 08/01/24 06:30 08/01/24 05:20 Levothyroxine Sodium 100 Mcg Tablet PO 08/31/24 06:29 100 mcg DAILYBB JORGE Administration Pantoprazole Sodium 40 mg 08/01/24 09:00 08/01/24 07:38 Pantoprazole 40 Mg Tab PO 08/31/24 08:59 40 mg QAM JORGE Administration
[2024-08-01] MEDS ORDERED: MICONAZOLE NITRATE POWDER 85 GM EXT PRN (12:08)
--- NOTE | 2024-08-01 12:25 | Hospitalist Progress Note ---
Date of Service August 01, 2024 Assessment & Plan (1) Right leg weakness: Plan: Ms. Romero is an 79 yo women with past medical history of Mnire's disease, hypothyroidism, knee surgery admitted for stroke. Patient found to have small acute/subacute ischemic injury of the left thalamus without evidence of hemorrhagic transformation. Neurology evaluated with plans for [facility] and rehab. #Acute thalamic stroke MRI with left thalamic stroke Patient tolerating ASA an plavix: continue ECHO 55-60%. mild LVH, G1DD Continue statin monitor on tele PT/OT plans for rehab A1C 4.88, LDL 28 Neurology following, reviewed recommednation Plan for ziopatch as op continue dvt ppx #hypothyroidism repeat tsh continue Synthroid #Sinus tachycardia, PVCs & PACs multiple peaks up to 140s with reports of PAT starting metoprolol 12.5mg bid monitor on tele #Microscopic hematuria repeat UA #anemia normocytic 10.5, down to 8.5 this am; no sign of bleed or instability, unknown baseline b12 829, folate 13.26 adding retic count and Hemoccult all stools Repeat cbc this pm transfuse < 7 DVT prophylaxis heparin dispo contingent on rehab auth Admission and Anticipated Discharge Date Admission Date: July 31, 2024 Subjective Report feeling well today, much better than day before--notes that she is grateful to have come to the hospital as she almost did not originally present Denies any vision changes, chest pain, or other concerns, reports residual RLE weakness denies any side effects from ASA this am denies palpitations Physical Exam Constitutional: WD/WN, vitals as above Respiratory: normal respiratory effort, lungs clear to auscultation Cardiovascular: RRR, no murmur, no edema Neurologic: PERRL, EOMI, accommodation nl, no face palsy, no dysarthria Results & Data Results & Data Vital Signs (Past 12 Hours) Vital Signs Temp Pulse Pulse Pulse Resp BP Pulse Ox 08/01/24 08:21 37.9 C H 84 17 136/78 94 08/01/24 07:00 77 08/01/24 03:36 36.2 C L 75 16 122/68 94 O2 Del Method 08/01/24 08:21 Room Air 08/01/24 07:00 08/01/24 03:36 Room Air Laboratory Results Short CBC 08/01/24 Range/Units 05:20 WBC 5.97 (4.8-10.8) K/ul Hgb 8.5 L (12.0-16.0) g/dl Hct 27.2 L (37.0-47.0) % Plt Count 297 (130-400) K/uL BMP 08/01/24 05:20 Sodium 141 Potassium 3.4 L Chloride 107 Carbon Dioxide 28 BUN 14 Creatinine 0.47 L Glucose 86 Calcium 8.3 L Medications Administered Home Medications Medication Instructions Recorded Confirmed Last Taken acetaminophen 300 mg-codeine 30 mg 1 - 2 tab PO QID PRN Pain 07/31/24 07/31/24 07/31/24 06:30 tablet furosemide 20 mg tablet 20 mg PO UD PRN swelling 07/31/24 07/31/24 Unknown levothyroxine 100 mcg tablet 100 mcg PO DAILY 07/31/24 07/31/24 07/31/24 06:30 Active Medications Generic Name Dose Route Start Last Admin Trade Name Freq PRN Reason Stop Dose Admin Acetaminophen/Codeine Phosphate 1 - 2 tab 07/31/24 20:07 08/01/24 13:08 Acetaminophen W/Codeine #3 1 Tab PO 08/30/24 20:06 2 tab QID PRN Administration Pain Aspirin 81 mg 08/01/24 09:00 08/01/24 07:37 Aspirin 81 Mg Ectab PO 08/31/24 08:59 81 mg DAILY JORGE Administration Atorvastatin Calcium 40 mg 07/31/24 18:15 08/01/24 08:33 Atorvastatin 40 Mg Tab PO 08/30/24 18:14 40 mg QAM JORGE Administration Heparin Sodium (Porcine) 5,000 units 07/31/24 22:00 08/01/24 13:10 Heparin Sod 5,000 Unit/0.5 Ml Vial SQ 08/30/24 21:59 5,000 units Q8 JORGE Administration Levothyroxine Sodium 100 mcg 08/01/24 06:30 08/01/24 05:20 Levothyroxine Sodium 100 Mcg Tablet PO 08/31/24 06:29 100 mcg DAILYBB JORGE Administration Pantoprazole Sodium 40 mg 08/01/24 09:00 08/01/24 07:38 Pantoprazole 40 Mg Tab PO 08/31/24 08:59 40 mg QAM JORGE Administration
--- NOTE | 2024-08-01 13:23 | Pharmacy Report ---
- Date of Service August 01, 2024 - Pharmacy CVA/TIA Medication Review Medications to Prevent Stroke handout has been added to the patients discharge packet. Antiplatelet(s) * aspirin 81mg PO daily (allergy aspirin "real bad heartburn and indigestion" * Alternatives per Neuro,"If patient is unable to tolerate ASA then recommend clopidogrel 300mg load followed by 75mg daily if able to undergo platelet reactivity testing to confirm response; otherwise recommend Brillinta 90mg BID in addition to high dose statin therapy." Cholesterol * High intensity statin: atorvastatin 40 mg daily DVT Prophylaxis * Heparin SQ Therapeutic Anticoagulation * No history of Afib/Aflutter noted Type 2 Diabetes * Patient does not have T2DM, A1c excellent at 4.8%
[2024-08-01] MEDS: POTASSIUM CHLORIDE PWD 20 MEQ PACK PO SCH (17:53)
[2024-08-01] MEDS: METOPROLOL TARTRATE 25 MG TAB PO SCH (18:22)
[2024-08-01 18:52] LABS: INR 1.1 (0.9-1.1); Prothrombin Time 11.8 Seconds (9.0-12.0)
[2024-08-01 19:07] LABS: Hematocrit (blood only) 29.1 % (37.0-47.0); Hemoglobin 9.3 g/dl (12.0-16.0); Immature Retic Fraction 17.3 % (2.3-15.9); Mean Corpuscular Hemoglobin 29.4 pg (25.0-34.0); Mean Corpuscular Volume 92.1 fL (80.0-100.0); Mean Platelet Volume 10.6 fL (9.4-12.4); Nucleated RBC # (auto) 0.08 K/uL (0.00-0.12); Nucleated RBC % (auto) 1.2 %; Platelet Count 335 K/uL (130-400); Platelet Estimate Normal (Normal); RDW Coefficient of Variation 23.2 % (11.5-14.5); RDW Standard Deviation 76.8 fL (36.4-46.3); Red Blood Count 3.16 M/uL (4.20-5.40); Reticulated Hemoglobin 26.4 pg (28.2-36.6); Reticulocyte % 1.26 % (0.50-2.00)
[2024-08-01 20:05] LABS: Appearance Urine Clear (Clear); Bacteria Urine Automated None Seen (None Seen); Bilirubin Urine 1+ (Negative); Blood Urine 2+ (Negative); Color Urine Dark Yellow; Glucose Urine UA Negative (Negative); Ketones Urine 3+ (Negative); Leukocyte Esterase Urine Trace (Negative); Nitrite Urine Positive (Negative); Protein Urine Trace (Negative); Specific Gravity Urine 1.033 (1.000-1.030); Urobilinogen Urine Negative (Negative); WBC Urine Automated 0-5 /hpf (0-5); pH Urine 5.5 (4.5-7.5)
[2024-08-01] MEDS ORDERED: TICAGRELOR 90 MG TAB PO SCH (21:00)
[2024-08-02 06:12] LABS: Basophils # (auto) 0.07 K/uL (0.00-0.20); Basophils % (auto) 1.5 %; Eosinophils # (auto) 0.05 K/uL (0.00-0.50); Eosinophils % (auto) 1.1 %; Hematocrit (blood only) 25.8 % (37.0-47.0); Immature Granulocytes # (auto) 0.03 K/uL (0.01-0.20); Immature Granulocytes % (auto) 0.7 %; Lymphocytes # (auto) 1.23 K/uL (1.20-3.40); Mean Corpuscular Hemoglobin 28.9 pg (25.0-34.0); Mean Corpuscular Volume 93.1 fL (80.0-100.0); Mean Platelet Volume 10.9 fL (9.4-12.4); Monocytes # (auto) 0.58 K/uL (0.11-0.59); Monocytes % (auto) 12.7 %; Nucleated RBC # (auto) 0.07 K/uL (0.00-0.12); Nucleated RBC % (auto) 1.5 %; Platelet Count 276 K/uL (130-400); RDW Coefficient of Variation 23.2 % (11.5-14.5); RDW Standard Deviation 77.6 fL (36.4-46.3); Red Blood Count 2.77 M/uL (4.20-5.40); White Blood Count 4.56 K/ul (4.8-10.8)
[2024-08-02 06:27] LABS: BUN Creatinine Ratio 28.8 (10-20); Calcium 8.1 mg/dl (8.6-10.3); Potassium 3.7 mmol/L (3.5-5.1)
[2024-08-02 06:39] LABS: Stomatocytes 1+; Tear Drop Cells 1+
[2024-08-02 08:04] VITALS: RESP 18
[2024-08-02] MEDS: CLOPIDOGREL BISULFATE 75 MG TAB PO SCH (09:20)
--- NOTE | 2024-08-02 12:54 | Hospitalist Progress Note ---
Date of Service August 02, 2024 Assessment & Plan (1) Right leg weakness: Plan: Ms. Romero is an 79 yo women with past medical history of Mnire's disease, hypothyroidism, knee surgery admitted for stroke. Patient found to have small acute/subacute ischemic injury of the left thalamus without evidence of hemorrhagic transformation. Neurology evaluated with plans for [facility] and rehab. #Acute thalamic stroke MRI with left thalamic stroke Patient tolerating ASA an plavix: continue ECHO 55-60%. mild LVH, G1DD Continue statin monitor on tele PT/OT plans for rehab A1C 4.88, LDL 28 Neurology following, reviewed recommendation Plan for ziopatch as op continue dvt ppx ASA and Plavix for 21 days EOT 08/23, then asa #hypothyroidism tsh wnl continue Synthroid #Sinus tachycardia, PVCs & PACs multiple peaks up to 140s with reports of PAT starting metoprolol 12.5mg bid monitor on tele #Microscopic hematuria repeat UA now with nitrates, suspect uti reports some freuqncy start ctx #anemia normocytic 10.5, down to 8.5 this am; no sign of bleed or instability, unknown baseline b12 829, folate 13.26 adding retic count and Hemoccult all stools Repeat cbc this pm transfuse < 7 DVT prophylaxis heparin dispo contingent on rehab auth Admission and Anticipated Discharge Date Admission Date: July 31, 2024 Subjective Reports much improvement in BLE strength eager about her progress denies any new concerns, denies palpitations or chest pains Physical Exam Constitutional: WD/WN, vitals as above Respiratory: normal respiratory effort, lungs clear to auscultation Cardiovascular: RRR, no murmur, no edema Neurologic: PERRL, EOMI, accommodation nl, no face palsy, no dysarthria Results & Data Results & Data Vital Signs (Past 12 Hours) Vital Signs Temp Pulse Pulse Resp BP Pulse Ox O2 Del Method 08/02/24 11:47 36.9 C 83 18 131/72 94 Room Air 08/02/24 08:03 36.9 C 84 18 132/71 93 Room Air 08/02/24 07:29 116 H 08/02/24 03:34 37.0 C 75 20 116/67 96 Room Air Laboratory Results Short CBC 08/01/24 08/02/24 Range/Units 18:12 05:20 WBC 6.70 4.56 L (4.8-10.8) K/ul Hgb 9.3 L 8.0 L (12.0-16.0) g/dl Hct 29.1 L 25.8 L (37.0-47.0) % Plt Count 335 276 (130-400) K/uL BMP 08/02/24 05:20 Sodium 141 Potassium 3.7 Chloride 108 H Carbon Dioxide 28 BUN 15 Creatinine 0.52 L Glucose 101 H Calcium 8.1 L Urine 08/01/24 Range/Units 18:23 Urine Color Dark Yellow Urine Appearance Clear (Clear) Urine pH 5.5 (4.5-7.5) Ur Specific [place] 1.033 H (1.000-1.030) Urine Protein Trace H (Negative) Urine Glucose (UA) Negative (Negative) Medications Administered Home Medications Medication Instructions Recorded Confirmed Last Taken acetaminophen 300 mg-codeine 30 mg 1 - 2 tab PO QID PRN Pain 07/31/24 07/31/24 07/31/24 06:30 tablet furosemide 20 mg tablet 20 mg PO UD PRN swelling 07/31/24 07/31/24 Unknown levothyroxine 100 mcg tablet 100 mcg PO DAILY 07/31/24 07/31/24 07/31/24 06:30 Active Medications Generic Name Dose Route Start Last Admin Trade Name Freq PRN Reason Stop Dose Admin Acetaminophen/Codeine Phosphate 1 - 2 tab 07/31/24 20:07 08/02/24 09:24 Acetaminophen W/Codeine #3 1 Tab PO 08/30/24 20:06 2 tab QID PRN Administration Pain Aspirin 81 mg 08/01/24 09:00 08/02/24 09:20 Aspirin 81 Mg Ectab PO 08/31/24 08:59 81 mg DAILY JORGE Administration Atorvastatin Calcium 40 mg 07/31/24 18:15 08/02/24 09:20 Atorvastatin 40 Mg Tab PO 08/30/24 18:14 40 mg QAM JORGE Administration Clopidogrel Bisulfate 75 mg 08/02/24 09:00 08/02/24 09:20 Clopidogrel Bisulfate 75 Mg Tab PO 09/01/24 08:59 75 mg QAM JORGE Administration Heparin Sodium (Porcine) 5,000 units 07/31/24 22:00 08/02/24 05:39 Heparin Sod 5,000 Unit/0.5 Ml Vial SQ 08/30/24 21:59 5,000 units Q8 JORGE Administration Levothyroxine Sodium 100 mcg 08/01/24 06:30 08/02/24 05:39 Levothyroxine Sodium 100 Mcg Tablet PO 08/31/24 06:29 100 mcg DAILYBB JORGE Administration Metoprolol Tartrate 12.5 mg 08/01/24 21:00 08/02/24 09:20 Metoprolol Tartrate 25 Mg Tab PO 08/03/24 08:59 12.5 mg BID JORGE Administration Pantoprazole Sodium 40 mg 08/01/24 09:00 08/02/24 09:20 Pantoprazole 40 Mg Tab PO 08/31/24 08:59 40 mg QAM JORGE Administration Potassium Chloride 40 meq 08/01/24 17:30 08/02/24 09:20 Potassium Chloride Pwd 20 Meq Pack PO 08/31/24 17:29 40 meq QAM JORGE Administration
[2024-08-02] MEDS: cefTRIAXone SODIUM 2,000 MG/50 ML BAG IV SCH (14:11)
[2024-08-02] MEDS ORDERED: STROKE PATIENT DISCHARGE STA (15:23)
[2024-08-02 15:34] VITALS: BP 129/61; PULSE 86; TEMP 99.1; O2SAT 95
--- NOTE | 2024-08-02 16:16 | Discharge Summary ---
Discharge Summary Date of Service August 02, 2024 Principal Dx & Hospital Course #1 = Principal Diagnosis (1) Right leg weakness: Ms. Romero is an 79 yo women with past medical history of Mnire's disease, hypothyroidism, knee surgery admitted for stroke. Patient found to have small acute/subacute ischemic injury of the left thalamus without evidence of hemorrhagic transformation. Neurology evaluated with plans for [facility] and rehab. On day of discharge, patient was doing well and motivated for more therapy. She reports some weakness of RLE, but was able to ambulate with assistance of walker. She denies any new neurologic symptoms or concerns. She reports some urinary frequency and iso nitrite +UA and microhematuria started on macrobid. Patient discharged to [facility]. #Acute thalamic stroke MRI with left thalamic stroke Patient tolerating ASA an plavix: continue ECHO 55-60%. mild LVH, G1DD Continue statin monitor on tele PT/OT plans for rehab A1C 4.88, LDL 28 Neurology following, reviewed recommendation Plan for ziopatch as op continue dvt ppx ASA and Plavix for 21 days EOT 08/23, then asa #hypothyroidism tsh wnl continue Synthroid #Sinus tachycardia, PVCs & PACs #NSVT multiple peaks up to 140s with reports of PAT starting metoprolol 12.5mg bid transitioned to metoprolol XL 25mg #Microscopic hematuria repeat UA now with nitrates, suspect uti reports some freuqncy start ctx #anemia normocytic stable, likely dilutional 10.5, down to 8.5 this am; no sign of bleed or instability, unknown baseline b12 829, folate 13.26 Notes For Next Care Provider Tayla morrell as op Medication Changes From Visit [ ]ASA and Plavix for 21 days EOT 08/23, then ASA [ ]Atorvastatin 40mg daily [ ]Metoprolol 25mg XL daily [ ]Pantoprazole 40mg daily [ ]Macrobid 100mg two times a day for three more days Admission HPI Per Admitting Provider History obtained from chart review and interview with the patient Past medical history of Mnire's disease, hypothyroidism, knee surgery Patient presents to the hospital with report of right knee weakness since yesterday. Patient reports that she has acute onset of right lower extremity weakness around 11 AM yesterday. She reports that she was ambulating without any difficulty prior to the onset of the weakness; has been having difficulty with movement ever since the episode. She reports episode of visual blurriness earlier today but denies any weakness/numbness of any other body part, chest pain, shortness of breath, abdominal pain or urinary symptoms. She denies any history of trauma, no history of back pain, numbness/tingling sensation down the leg. On presentation to the ED, she was normotensive, afebrile and saturating well on room air. CBC showed hemoglobin of 10.5. BUN/creatinine within normal limits. Total bilirubin of 2.3 and direct bilirubin 0.4 urinalysis did not suggest infec tion. CT head without contrast showed left thalamic tiny ill-defined hypodense focus which may suggest lacunar infarct of indeterminate age. Left basal ganglia chronic lacunar infarct likely chronic. Patient was then referred for admission Admission Exam Per Admitting Provider Constitutional: WD/WN, vitals as above, NAD, sitting up in bed, pleasant, conversing easily Respiratory: normal respiratory effort, lungs clear to auscultation, no wheeze, rales, rhonchi. Normal insp/exp effort, no accessory muscle use Cardiovascular: RRR, no murmur, no edema Vessels: no JVD or carotid bruit Chest: normal inspection of chest Abdomen: normal bowel sounds, soft, nontender, no hepatosplenomegaly Skin: no rashes, warm and dry normal turgor Neurologic: PERRL, EOMI, accommodation nl, no face palsy, no dysarthria CN's II- XI intact bilaterally. Strength in right lower extremity of 4/5; otherwise strength in all extremities within normal limits. sensation intact Psychiatric: A+Ox3, euthymic affect Discharge Exam Constitutional WD/WN, vitals as above Respiratory normal respiratory effort, lungs clear to auscultation Cardiovascular RRR, no murmur, no edema Neurologic PERRL, EOMI, accommodation nl, no face palsy, no dysarthria Updated Medication List Medication Instructions Recorded Confirmed Type acetaminophen 300 mg-codeine 30 mg 1 - 2 tab PO QID PRN Pain 07/31/24 07/31/24 History tablet furosemide 20 mg tablet 20 mg PO UD PRN swelling 07/31/24 07/31/24 History levothyroxine 100 mcg tablet 100 mcg PO DAILY 07/31/24 07/31/24 History aspirin 81 mg tablet,delayed 81 mg PO DAILY #0 tabs 08/02/24 Rx release atorvastatin 40 mg tablet 40 mg PO QAM #0 tabs 08/02/24 Rx clopidogrel 75 mg tablet 75 mg PO QAM #0 tabs 08/02/24 Rx metoprolol succinate 25 mg 25 mg PO QAM #0 tabs 08/02/24 Rx tablet,extended release 24 hr nitrofurantoin 100 mg PO BID 3 days #6 caps 08/02/24 Rx monohydrate/macrocrystals 100 mg capsule (Macrobid) pantoprazole 40 mg tablet,delayed 40 mg PO QAM #0 tabs 08/02/24 Rx release Hospital Stay Data Consultations 07/31/24 18:12 Consult Neurology Routine Diagnostic Imagining Performed 07/31/24 15:33 CT head/brain wo con Stat 07/31/24 18:11 CT angio head w con Stat CT angio neck with con Stat MR brain wo con Routine Pending Results Patient Have Any Pending Studies at Discharge: No Discharge Instructions Given to Patient (Per Discharging Provider) You were admitted for right leg weakness and found to have an acute ischemic stroke. You were started on the following medications to help prevent future stroke: Atorvastatin 40mg daily Aspirin 81mg daily Plavix 75mg daily until 08/23/2024 You were noted to have abnormal heart beats (nonsustained ventricular tachycardia, PACs) and started on the following: Metoprolol 25mg XL daily You reported history of reflux with aspirin, you were started on the following: Pantoprazole 40mg daily Your urine was suspicious for infection and with your report of frequency you were started on: Marcbid 100mg two times a day for three more days You will be going to rehab for physical therapy and will need to follow up with your PCP Total Time Total Time Spent Total Time Spent (In Minutes): 35
[2024-08-03] MEDS ORDERED: METOPROLOL SUCC 25MG EXT REL TAB PO SCH (09:00)
--- NOTE | 2024-08-04 08:39 | Electrocardiogram Report ---
Test Reason : Blood Pressure : */* mmHG Vent. Rate : 95 BPM Atrial Rate : 95 BPM P-R Int : 160 ms QRS Dur : 86 ms QT Int : 360 ms P-R-T Axes : 59 -37 50 degrees QTcB Int : 452 ms Sinus rhythm with occasional Premature ventricular complexes and Premature atrial complexes Left axis deviation Cannot rule out Anterior infarct , age undetermined Abnormal ECG No previous ECGs available Confirmed by Paul Garcia ([id number]) on 08/04/2024 8:38:49 AM Referred By: REFERRED SELF Confirmed By: Paul Garcia
--- NOTE | 2024-08-04 08:54 | Electrocardiogram Report ---
Test Reason : Blood Pressure : */* mmHG Vent. Rate : 78 BPM Atrial Rate : 78 BPM P-R Int : 166 ms QRS Dur : 86 ms QT Int : 390 ms P-R-T Axes : 49 -35 5 degrees QTcB Int : 444 ms Normal sinus rhythm Left axis deviation Abnormal ECG When compared with ECG of 31-Jul-2024 13:47, (unconfirmed) Premature ventricular complexes are no longer Present Premature atrial complexes are no longer Present ST no longer depressed in Anterior leads T wave inversion now evident in Anterior leads Confirmed by Paul Garcia ([id number]) on 08/04/2024 8:54:12 AM Referred By: REFERRED SELF Confirmed By: Paul Garcia
--- NOTE | 2024-08-04 09:12 | Electrocardiogram Report ---
Test Reason : Blood Pressure : */* mmHG Vent. Rate : 90 BPM Atrial Rate : 90 BPM P-R Int : 152 ms QRS Dur : 82 ms QT Int : 368 ms P-R-T Axes : 44 -35 13 degrees QTcB Int : 450 ms Sinus rhythm with occasional Premature ventricular complexes Left axis deviation Abnormal ECG When compared with ECG of 01-Aug-2024 06:10, (unconfirmed) Premature ventricular complexes are now Present Non-specific change in ST segment in Anterior leads T wave inversion no longer evident in Anterior leads Confirmed by Paul Garcia ([id number]) on 08/04/2024 9:12:18 AM Referred By: REFERRED SELF Confirmed By: Paul Garcia
== END 2024-08-02 16:26 | DRG 65 ==
LOC: ED 13:37 → 2N 18:15 → SUATTDRO 18:15 → 2N 19:38

== ENCOUNTER 2024-10-11 16:49 | Inpatient (IN) ==
--- NOTE | 2024-10-11 17:07 | Emergency Department Note ---
Impression & Plan Chest pain, Hypomagnesemia, Hypocalcemia, Generalized weakness, Acute hypokalemia, Serum total bilirubin elevated ED Provider Note HISTORY OF PRESENT ILLNESS: Patient is a 79-year-old female presenting with generalized weakness, chest pain and diarrhea. Patient reports that 4 days ago she had 24 hours of "intense diarrhea." She reports that she had liquid stool about 15 times throughout the day. She states that her chest pain started about 3 days ago and has been intermittent. She locates the pain to the substernal region of her chest. States that it seems to occur intermittently. Describes it as a pressure sensation. Denies any sensation that her heart is racing. Denies any history of atrial fibrillation. She denies any recent fevers. She has had a decreased oral intake over the last 4 days secondary to feeling generally unwell. She states that she feels very rundown and tired. Denies any DVT or PE history. Denies any history of cardiac stents. She does report that last week she required a transfusion of blood for a GI bleed. ROS: as above PHYSICAL EXAM: Constitutional: Patient appears in no acute distress. HENT: Head: Normocephalic and atraumatic. Eyes: EOMI, PERRL Mouth/Throat: Mucous membranes moist. Neck: Trachea midline. Neck supple. Cardiovascular: Tachycardic with irregularly irregular rhythm. No murmurs, rubs or gallops. Intact distal pulses. Pulmonary/Chest: No respiratory distress. Breath sounds clear and equal bilaterally. No wheezes or rales. Abdominal: Abdomen soft, no tenderness, rebound or guarding. Musculoskeletal: No edema, tenderness or deformity noted. Skin: Warm and dry. No rash, erythema, pallor or cyanosis Psychiatric: Appropriate mood and affect for situation. Neurological: Alert and keenly responsive. CN II-XII grossly intact, moving all extremities equally and fully. MDM: - Vitals signs showed hypertension and tachycardia. - History obtained via patient. History as above. - Chronic conditions affecting care: HLD; hypothyroidism; CVA; GERD - Differential diagnoses include, but are not limited to: Viral syndrome; ACS; acute dehydration; electrolyte abnormality; anemia; UTI; pneumonia - Order placed for continuous cardiac monitoring. At this time, monitor showed rate of 115 bpm with irregular rhythm, per my interpretation. - External medical records reviewed. Discharge summary dated 09/01/2024 was reviewed. Patient was admitted for acute CVA and right sided weakness. She had a hemoglobin of 6.4 on admission and was given a total of 2 units of packed red blood cells. - EKG image interpreted by myself showed atrial fibrillation. Rate tachycardic 152 bpm. QT 332. No acute ischemic changes. - Laboratory workup interpreted by myself showed normal WBC; chronic anemia (Hgb 7.7 - was 8.4 one month ago); elevated INR (1.3); acute hypokalemia (K 2.3); elevated anion gap (12) with only slightly elevated glucose (134); hypocalcemia (Ca 6.0); hypomagnesemia (Mg 0.9); elevated total bilirubin (2.8) with normal AST/ALT; normal TSH; normal lactic acid - Blood cultures obtained - Patient given 1L NS in ER. - Phosphorous lab test ordered, give hypomagnesemia - Given 2g IV magnesium and a total of 30 mEq IV potassium in ER. - After electrolyte replacement and volume replacement, patient's HR improved to 90s-120 bpm. As patient's A-fib with RVR is likely secondary to her electrolyte abnormality, rate control medication was not ordered. - CXR image reviewed by myself is new for pneumonia, per my interpretation. - Stool PCR ordered, but patient unable to provide sample in the emergency department. Patient is not have any reproducible abdominal pain. So though CT abdomen/pelvis was considered, it was not obtained. - Discussion was had with family preservation caseworker about patient's case and need for admission - Hospitalist consulted for admission - Patient admitted to [facility] the [facility] service for further evaluation and management. I have personally spent 46 minutes of critical care time in the direct management of this patient. This includes bedside care, interpretation of diagnostic studies, and testing, discussion with consultants, patient, and family members, and other required patient management activities. This 46 minutes is in excess of all separately billable procedures. ASSESSMENT AND PLAN: Diagnosis: Chest pain; generalized weakness; A-fib with RVR; acute hypokalemia; hypomagnesemia; hypocalcemia; elevated total bilirubin Plan: Admit Past Med/Surg History Problem List (Updated 10/11/24 @ 19:10 by Silvia Whitlock MD) Serum total bilirubin elevated (Acute) Acute hypokalemia (Acute) Generalized weakness (Acute) Hypocalcemia (Acute) Hypomagnesemia (Acute) Chest pain (Acute) Hypocalcemia Hypophosphatemia Atrial fibrillation with RVR Prediabetes History of ventricular tachycardia non-sustained GERD (gastroesophageal reflux disease) Hypothyroidism Hyperlipidemia Hypomagnesemia (Acute) Hypokalemia (Acute) Anemia (Acute) Medical History (Updated 10/11/24 @ 19:10 by Silvia Whitlock MD) Right sided weakness 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Stroke-like symptoms Anemia Stroke-like symptoms Vomiting Acute UTI Acute CVA (cerebrovascular accident) Ambulatory dysfunction 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Sequela, post-stroke Acute ischemic stroke Social History Smoking Status: Never smoker Hx Alcohol Use: No Hx Substance Use: No Preferred Language: Emir[place] Communication Ability: Effective Acls Nurse Required: No Beliefs That Will Affect Care: None Current Living Situation: Family Current Living Situation Comment: home with son Feels Safe at Home: Yes Assistive Devices: Cane, Walker and Wheelchair Allergies Allergies Allergy/AdvReac Type Severity Reaction Status Date / Time aspirin AdvReac Mild per pt she Verified 10/11/24 18:35 gets "really bad heartburn and indigestion" Home Meds Home Medications Medication Instructions Recorded Confirmed acetaminophen 300 mg-codeine 30 mg 1 - 2 tab PO Q6H PRN Pain 07/31/24 10/11/24 tablet levothyroxine 100 mcg tablet 100 mcg PO DAILYBB 07/31/24 10/11/24 bisacodyl 10 mg rectal suppository 10 mg NV DAILY PRN Constipation 09/23/24 10/11/24 polyethylene glycol 3350 17 17 g PO DAILY 09/23/24 10/11/24 gram/dose oral powder (Miralax) ticagrelor 90 mg tablet (Brilinta) 90 mg PO BID 09/23/24 10/11/24 acetaminophen 325 mg rectal 325 mg NV DIRECTED PRN 10/11/24 10/11/24 suppository PAIN/FEVER--UNABLE TO TAKE PO acetaminophen 325 mg tablet 650 mg PO Q4H PRN PAIN/FEVER 10/11/24 10/11/24 (Tylenol) cyanocobalamin (vitamin B-12) 1,000 mcg PO DAILY 10/11/24 10/11/24 1,000 mcg tablet (Vitamin B-12) loperamide 2 mg tablet 2 mg PO DIRECTED PRN Diarrhea 10/11/24 10/11/24 meclizine 12.5 mg tablet 12.5 mg PO TID 10/11/24 10/11/24 nitrofurantoin 100 mg PO BID 10/11/24 10/11/24 monohydrate/macrocrystals 100 mg capsule (Macrobid) Previous Rx's Medication Instructions Recorded aspirin 81 mg tablet,delayed 81 mg PO DAILY #0 tabs 08/02/24 release atorvastatin 40 mg tablet 40 mg PO QAM #0 tabs 08/02/24 metoprolol succinate 25 mg 25 mg PO QAM #0 tabs 08/02/24 tablet,extended release 24 hr pantoprazole 40 mg tablet,delayed 40 mg PO BID #60 tabs 09/01/24 release Results & Data (ED) Vital Signs Vital Signs - 24 hr 10/11/24 16:40 10/11/24 16:40 10/11/24 16:40 Temperature 36.9 C Temperature Source Oral Pulse Rate 122 H Pulse Rate from SpO2 Sensor Respiratory Rate 20 Blood Pressure 145/86 H Blood Pressure [Left Arm] 96/58 L Blood Pressure Mean 105 Blood Pressure Mean [Left Arm] 70 Pulse Oximetry 94 Oxygen Delivery Method Room Air Room Air Oxygen Flow Rate 0 Sepsis Recent Fever Within 48 Hours No Sepsis New/Unexplained Change in Mental Status N/A Sepsis Action Taken by Nursing No Action Required 10/11/24 16:54 10/11/24 16:57 10/11/24 16:57 Temperature Temperature Source Pulse Rate 119 H Pulse Rate from SpO2 Sensor Respiratory Rate 20 Blood Pressure 135/101 H Blood Pressure [Left Arm] Blood Pressure Mean 128 Blood Pressure Mean [Left Arm] Pulse Oximetry 91 91 Oxygen Delivery Method Room Air Room Air Oxygen Flow Rate Sepsis Recent Fever Within 48 Hours Sepsis New/Unexplained Change in Mental Status Sepsis Action Taken by Nursing 10/11/24 17:00 10/11/24 17:12 10/11/24 17:27 Temperature Temperature Source Pulse Rate 129 H 110 H Pulse Rate from SpO2 Sensor 137 H 115 H Respiratory Rate 38 H 20 Blood Pressure 157/71 H Blood Pressure [Left Arm] Blood Pressure Mean 99 Blood Pressure Mean [Left Arm] Pulse Oximetry 93 94 Oxygen Delivery Method Oxygen Flow Rate Sepsis Recent Fever Within 48 Hours Sepsis New/Unexplained Change in Mental Status Sepsis Action Taken by Nursing 10/11/24 17:30 10/11/24 17:30 10/11/24 17:30 Temperature Temperature Source Pulse Rate 105 H Pulse Rate from SpO2 Sensor 104 H Respiratory Rate 20 Blood Pressure 152/86 H 152/86 H Blood Pressure [Left Arm] Blood Pressure Mean 113 113 Blood Pressure Mean [Left Arm] Pulse Oximetry 95 Oxygen Delivery Method Oxygen Flow Rate Sepsis Recent Fever Within 48 Hours Sepsis New/Unexplained Change in Mental Status Sepsis Action Taken by Nursing 10/11/24 17:30 10/11/24 17:42 10/11/24 17:45 Temperature Temperature Source Pulse Rate 109 H 122 H Pulse Rate from SpO2 Sensor Respiratory Rate 24 22 Blood Pressure 152/86 H Blood Pressure [Left Arm] Blood Pressure Mean 113 Blood Pressure Mean [Left Arm] Pulse Oximetry Oxygen Delivery Method Oxygen Flow Rate Sepsis Recent Fever Within 48 Hours Sepsis New/Unexplained Change in Mental Status Sepsis Action Taken by Nursing 10/11/24 18:00 10/11/24 18:00 10/11/24 18:06 Temperature Temperature Source Pulse Rate 137 H Pulse Rate from SpO2 Sensor Respiratory Rate 26 H Blood Pressure 147/83 H 147/83 H Blood Pressure [Left Arm] Blood Pressure Mean 119 119 Blood Pressure Mean [Left Arm] Pulse Oximetry Oxygen Delivery Method Oxygen Flow Rate Sepsis Recent Fever Within 48 Hours Sepsis New/Unexplained Change in Mental Status Sepsis Action Taken by Nursing 10/11/24 18:09 10/11/24 18:12 10/11/24 18:24 Temperature Temperature Source Pulse Rate 119 H 158 H 107 H Pulse Rate from SpO2 Sensor 113 H Respiratory Rate 23 23 Blood Pressure Blood Pressure [Left Arm] Blood Pressure Mean Blood Pressure Mean [Left Arm] Pulse Oximetry 94 Oxygen Delivery Method Oxygen Flow Rate Sepsis Recent Fever Within 48 Hours Sepsis New/Unexplained Change in Mental Status Sepsis Action Taken by Nursing 10/11/24 18:30 10/11/24 18:30 10/11/24 18:30 Temperature Temperature Source Pulse Rate 118 H Pulse Rate from SpO2 Sensor 140 H Respiratory Rate 22 Blood Pressure 152/93 H 152/93 H Blood Pressure [Left Arm] Blood Pressure Mean 134 134 Blood Pressure Mean [Left Arm] Pulse Oximetry 96 Oxygen Delivery Method Oxygen Flow Rate Sepsis Recent Fever Within 48 Hours Sepsis New/Unexplained Change in Mental Status Sepsis Action Taken by Nursing Laboratory Data 10/11/24 17:44 07/08/25 17:10 Lab Results 10/11/24 10/11/24 Range/Units 17:10 17:44 WBC Cancelled 8.27 RBC Cancelled 2.65 L Hgb Cancelled 7.7 L Hct Cancelled 22.8 L MCV Cancelled 86.0 MCH Cancelled 29.1 MCHC Cancelled 33.8 RDW Std Deviation Cancelled 60.1 H RDW Coeff of Romelia Cancelled 19.5 H Plt Count Cancelled 439 H MPV Cancelled 10.5 Immature Gran % (Auto) Cancelled 1.0 Neut % (Auto) Cancelled 90.5 Lymph % (Auto) Cancelled 4.2 [place] % (Auto) Cancelled 3.7 Eos % (Auto) Cancelled 0.1 Baso % (Auto) Cancelled 0.5 Neut # (Auto) Cancelled 7.48 H Lymph # (Auto) Cancelled 0.35 L [place] # (Auto) Cancelled 0.31 Eos # (Auto) Cancelled 0.01 Baso # (Auto) Cancelled 0.04 Immature Gran # (Auto) Cancelled 0.08 Absolute Nucleated RBC Cancelled Nucleated RBC % (auto) Cancelled Neutrophils % (Manual) Cancelled Band Neutrophils % Cancelled Lymphocytes % (Manual) Cancelled Prolymphocyte % Cancelled Reactive Lymphs % (Man) Cancelled Monocytes % (Manual) Cancelled Eosinophils % (Manual) Cancelled Basophils % (Manual) Cancelled Metamyelocytes % (Man) Cancelled Myelocytes % (Man) Cancelled Promyelocytes % (Man) Cancelled Blast Cells % (Manual) Cancelled Plasma Cell % (Manual) Cancelled Other Cells % Cancelled Nucleated RBC % Cancelled Neutrophils # (Manual) Cancelled Band Neutrophils # Cancelled Total Absolute Neuts Cancelled Lymphocytes # (Manual) Cancelled Prolymphocyte # Cancelled Reactive Lymphs # Cancelled Total Abs Lymphocytes Cancelled Monocytes # (Manual) Cancelled Eosinophils # (Manual) Cancelled Basophils # (Manual) Cancelled Metamyelocytes # (Man) Cancelled Myelocytes # (Manual) Cancelled Promyelocytes # (Man) Cancelled Blast Cells # (Man) Cancelled Plasma Cell # (Manual) Cancelled Other Cells # Cancelled Nucleated RBCs # (Man) Cancelled Hypersegmented Neuts Cancelled Hyposegmented Neuts Cancelled Hypogranular Neuts Cancelled Large Granular Lymphs Cancelled # Lrg Granular Lymphs Cancelled Hairy Cells Cancelled Smudge Cells Cancelled Toxic Granulation Cancelled 1+ Toxic Vacuolation Cancelled 1+ Dohle Bodies Cancelled Leonard Rods Cancelled Platelet Estimate Cancelled Hypogranular Platelets Cancelled Giant Platelets Cancelled Platelet Satelliting Cancelled RBC Morphology Cancelled Polychromasia Cancelled Hypochromasia Cancelled Poikilocytosis Cancelled Present Basophilic Stippling Cancelled Anisocytosis Cancelled Microcytosis Cancelled Macrocytosis Cancelled Spherocytes Cancelled Pappenheimer Bodies Cancelled Sickle Cells Cancelled Target Cells Cancelled Tear Drop Cells Cancelled 1+ Ovalocytes Cancelled 1+ Stomatocytes Cancelled Patel-Peletier Bodies Cancelled Echinocytes Cancelled Acanthocytes (Spur) Cancelled 1+ Rouleaux Cancelled RBC Agglutinates Cancelled Schistocytes Cancelled Sezary Cell Cancelled PT 13.4 H (9.0-12.0) Seconds INR 1.3 H (0.9-1.1) APTT 25 (21-31) Seconds PTT Ratio 0.9 Sodium 140 (136-145) mmol/L Potassium 2.3 L* (3.5-5.1) mmol/L Chloride 100 (98-107) mmol/L Carbon Dioxide 28 (21-32) mmol/L Anion Gap 12 H (3-11) BUN 12 (6-23) mg/dl Creatinine 0.57 L (0.6-1.2) mg/dl Est Cr Clr Drug Dosing 70.8 ml/min eGFR 91.81 BUN/Creatinine Ratio 21.1 H (10-20) Glucose 134 H (70-99(Fasting)) mg/dl Lactate 1.8 (0.4-2.0) mmol/L Calcium 6.0 L (8.6-10.3) mg/dl Phosphorus 1.4 L* (2.5-4.9) mg/dl Magnesium 0.9 L* (1.7-2.4) mg/dl Total Bilirubin 2.8 H (0.2-1.0) mg/dl AST 14 (13-39) U/L ALT 9 (7-52) U/L Alkaline Phosphatase 75 (34-104) U/L Troponin I High Sens 9.6 (0-14) pg/ml Total Protein 6.1 (6.0-8.3) gm/dl Albumin 3.6 (3.4-5.0) gm/dl Globulin 2.5 (2.5-4.0) gm/dl Albumin/Globulin Ratio 1.4 (0.9-2) TSH 1.449 (0.300-4.500) uIu/ml Blood Parasites ID Cancelled Administered Medications Potassium Chloride (K Bola / Wtr) 10 meq in 100 mls @ 100 mls/hr IV Q1H JORGE Stop: 10/11/24 20:59 Last Admin: 10/11/24 19:04 Dose: 100 mls/hr Documented By: Infusion: 10/11/24 19:03 Dose: Infused Documented By: Admin: 10/11/24 18:03 Dose: 100 mls/hr Documented By: CHRISTINE Magnesium Sulfate/Dextrose (Magnesium Sulfate / D5w) 1 gm in 100 mls @ 100 mls/hr IV Q1H JORGE Stop: 10/11/24 19:50 Last Admin: 10/11/24 19:06 Dose: 100 mls/hr Documented By: Infusion: 10/11/24 19:01 Dose: Infused Documented By: Admin: 10/11/24 18:01 Dose: 100 mls/hr Documented By: CHRISTINE Sodium Chloride (Nss) 1,000 mls @ 999 mls/hr IV .Q1H1M ONE Stop: 10/11/24 19:25 Last Admin: 10/11/24 18:28 Dose: 999 mls/hr Documented By: CHRISTINE Discontinued Medications Calcium Gluconate () 1,000 mg in 60 mls @ 240 mls/hr IV NOW STA Stop: 10/11/24 18:06 Last Admin: 10/11/24 18:02 Dose: 240 mls/hr Documented By: CHRISTINE Imaging Data Radiologist's Impression: Chest X-Ray 10/11/24 16:57 Clinical History: Sepsis Technique: A frontal view of the chest was obtained Findings: There are no definite pulmonary infiltrates. The heart size is at the upper limit of normal. No pleural effusion or pneumothorax is seen. There is no definite pulmonary nodule. No fracture is noted. No foreign body is seen Impression: No active disease Electronically signed by Brian Rain 10-11-2024 6:30 PM Discharge Plan Visit Data Chief Complaint: Weakness ED Provider: Silvia Whitlock Discharge Problem: Chest pain, Hypomagnesemia, Hypocalcemia, Generalized weakness, Acute hypokalemia, Serum total bilirubin elevated Condition: Fair Forms Stand Alone Forms: [facility] Prescriptions Prescriptions: No Action bisacodyl 10 mg suppository 10 mg NV DAILY PRN (Reason: Constipation) ticagrelor [Brilinta] 90 mg tablet 90 mg PO BID polyethylene glycol 3350 [Miralax] 17 gram/dose powder 17 g PO DAILY acetaminophen-codeine 300-30 mg tablet 1 - 2 tab PO Q6H MDD 3 GRAMS APAP/ 24 HOURS PRN (Reason: Pain) levothyroxine 100 mcg tablet 100 mcg PO DAILYBB atorvastatin 40 mg Tablet 40 mg PO QAM Qty: 0 0RF aspirin 81 mg Tablet,Delayed Release (Dr/Ec) 81 mg PO DAILY Qty: 0 0RF metoprolol succinate 25 mg Tablet Extended Release 24 Hr 25 mg PO QAM Qty: 0 0RF pantoprazole 40 mg tablet,delayed release (DR/EC) 40 mg PO BID Qty: 60 0RF acetaminophen 325 mg Suppository 325 mg NV DIRECTED MDD 3 GRAMS APAP/24 HOURS PRN (Reason: PAIN/FEVER--UNABLE TO TAKE PO) acetaminophen [Tylenol] 325 mg Tablet 650 mg PO Q4H MDD 3 GRAMS APAP/24 HOURS PRN (Reason: PAIN/FEVER) loperamide 2 mg Tablet 2 mg PO DIRECTED MDD 16 MG/24 HOURS PRN (Reason: Diarrhea) Rx Instructions: GIVE 2 TABS AFTER 1ST LOOSE STOOL, THEN 1 TAB AFTER EACH LOOSE STOOL, MAX 16 MG/24 HOURS cyanocobalamin (vitamin B-12) [Vitamin B-12] 1,000 mcg Tablet 1,000 mcg PO DAILY nitrofurantoin monohyd/m-cryst [Macrobid] 100 mg Capsule 100 mg PO BID Rx Instructions: STARTED 10/04/24 FOR 7 DAYS, ENDS 10/11/24. must administer with a meal/food meclizine 12.5 mg tablet 12.5 mg PO TID Referrals Referrals: Italo Barboza [Primary Care Provider] -
[2024-10-11 17:50] LABS: INR 1.3 (0.9-1.1); Partial Thromboplastin Time 25 Seconds (21-31); Prothrombin Time 13.4 Seconds (9.0-12.0)
[2024-10-11 17:51] LABS: Alanine Aminotransferase 9.0 U/L (7-52); Albumin Globulin Ratio 1.4 (0.9-2); Alkaline Phosphatase 75.0 U/L (34-104); Anion Gap 12.0 (3-11); Bilirubin,Total 2.8 mg/dl (0.2-1.0); Blood Urea Nitrogen 12.0 mg/dl (6-23); Calcium 6.0 mg/dl (8.6-10.3); Carbon Dioxide 28.0 mmol/L (21-32); Chloride 100.0 mmol/L (98-107); Creatinine Clr Calc Pharmacy 70.8 ml/min; Globulin 2.5 gm/dl (2.5-4.0); Glucose 134.0 mg/dl (70-99(Fasting)); Magnesium 0.9 mg/dl (1.7-2.4); Potassium 2.3 mmol/L (3.5-5.1); Sodium 140.0 mmol/L (136-145); Total Protein 6.1 gm/dl (6.0-8.3)
[2024-10-11 17:53] LABS: Thyroid Stimulating Hormone 1.449 uIu/ml (0.300-4.500)
[2024-10-11] MEDS: MAGNESIUM SULFATE / D5W 1 GM/100 ML BAG IV SCH (18:01)
[2024-10-11] MEDS: CALCIUM GLUCONATE 1,000 MG/60 ML BAG IV STA ×2 (18:02→20:18)
[2024-10-11 18:03] LABS: Hematocrit (blood only) 22.8 % (37.0-47.0); Hemoglobin 7.7 g/dl (12.0-16.0); Mean Corpuscular Hemoglobin 29.1 pg (25.0-34.0); Mean Corpuscular Volume 86.0 fL (80.0-100.0); Platelet Count 439 K/uL (130-400); RDW Standard Deviation 60.1 fL (36.4-46.3); Red Blood Count 2.65 M/uL (4.20-5.40); White Blood Count 8.27 K/ul (4.8-10.8)
[2024-10-11] MEDS: POTASSIUM CHLORIDE / WTR 10 MEQ/100 ML PLCT IV SCH (18:03)
[2024-10-11 18:24] LABS: Acanthocytes 1+; Immature Granulocytes # (auto) 0.08 K/uL (0.01-0.20); Immature Granulocytes % (auto) 1.0 %; Ovalocytes 1+; Poikilocytosis Present; Tear Drop Cells 1+; Toxic Granulation 1+; Toxic Vacuolation 1+
[2024-10-11] MEDS: SODIUM CHLORIDE 0.9% 1,000 ML IV ONE (18:28)
--- NOTE | 2024-10-11 18:30 | XRay Report ---
Clinical History: Sepsis Technique: A frontal view of the chest was obtained Findings: There are no definite pulmonary infiltrates. The heart size is at the upper limit of normal. No pleural effusion or pneumothorax is seen. There is no definite pulmonary nodule. No fracture is noted. No foreign body is seen Impression: No active disease Electronically signed by Brian Rain 10-11-2024 6:30 PM
--- NOTE | 2024-10-11 19:01 | History & Physical Report ---
Date of Service October 11, 2024 Assessment & Plan (1) Atrial fibrillation with RVR: (2) Hypokalemia: (3) Hypomagnesemia: (4) Hypophosphatemia: (5) Hypocalcemia: (6) Anemia: (7) Hypothyroidism: (8) GERD (gastroesophageal reflux disease): (9) Hyperlipidemia: Plan 79 year old female with PMH significant for history of two recent strokes (July 2024, August 2024), Mnire's disease, hypothyroidism, GERD, hyperlipidemia who presented to the ED on 10/11/2024 with chest pain x3 days and is admitted for new onset A fib with RVR. New onset A fib with RVR Patient presented with pleuritic chest pain x3 days with associated SOB and fatigue CXR negative and patient denies fevers, chills, cough EKG revealed A fib at rate of 152 bpm Electrolyte disturbances likely secondary to recent diarrhea and poor PO including K 2.3, Ca 6.0, Phos 1.4, Mag 0.9 Ongoing electrolyte repletions in ED with recheck of labs ordered for 0000 Troponin negative On metoprolol for history of nonsustained VT - continue CHADSVASC score of 5 - initiate low dose Heparin drip Cardiology consult: appreciate recs Hypokalemia, hypomagnesemia, hypophosphatemia, hypocalcemia Monitor labs and replace as needed Anemia Patient with reported lifelong history of chronic anemia Previous admission iron studies and vitamin B12 WNL Hemoglobin 7.7 on admission Received 2 units PRBC in our ED on 09/23/2024 for Hgb ~5 per patient Monitor CBC Recent stroke Two recent strokes in July and August 2024 Continue aspirin and Brilinta Hypothyroidism Continue levothyroxine GERD Continue protonix Hyperlipidemia Continue statin DVT Prophylaxis: Low dose heparin drip Code Status: FULL CODE PCP: Italo Barboza ([facility]) Disposition: admit to tele Patient seen in collaboration with Dr Ortiz. Please see addendum. I spent a total of 70 minutes coordinating, documenting and providing care for this patient excluding time spent in the performance of separately billed services or time spent by another provider/QHP. Admission and Anticipated Discharge Date Admission Date: 10/11/2024 History of Present Illness Chief Complaint: chest pressure Primary Care Provider: Italo Barboza 79 year old female with PMH significant for history of two recent strokes (July 2024, August 2024), Mnire's disease, hypothyroidism, GERD, hyperlipidemia who presented to the ED on 10/11/2024 with chest pain x3 days. She reports she had 16 episodes of yellow diarrhea on October 07. She was given immodium which stopped her diarrhea and she hasn't had a bowel movement since. The following day on October 08 she developed midsternal chest pressure and pleuritic chest pain with associated SOB and fatigue. She denies radiation of her chest pain anywhere. She also reports intermittent palpitations that are very infrequent. Her current chest pain is 4/10. She notes she has been having poor PO intake since her diarrhea on October 07. She feels very wiped out. Denies fevers, chills, cough, headaches, dizziness, lightheadedness, abdominal pain, N/V/D, dysuria. Denies any falls. Ambulates with a walker. Allergies Allergy/AdvReac Type Severity Reaction Status Date / Time aspirin AdvReac Mild per pt she Verified 10/11/24 18:35 gets "really bad heartburn and indigestion" Home Medications Medication Instructions Recorded Confirmed Type acetaminophen 300 mg-codeine 30 mg 1 - 2 tab PO Q6H PRN Pain 07/31/24 10/11/24 History tablet levothyroxine 100 mcg tablet 100 mcg PO DAILYBB 07/31/24 10/11/24 History aspirin 81 mg tablet,delayed 81 mg PO DAILY #0 tabs 08/02/24 10/11/24 Rx release atorvastatin 40 mg tablet 40 mg PO QAM #0 tabs 08/02/24 10/11/24 Rx metoprolol succinate 25 mg 25 mg PO QAM #0 tabs 08/02/24 10/11/24 Rx tablet,extended release 24 hr pantoprazole 40 mg tablet,delayed 40 mg PO BID #60 tabs 09/01/24 10/11/24 Rx release bisacodyl 10 mg rectal suppository 10 mg NV DAILY PRN Constipation 09/23/24 10/11/24 History polyethylene glycol 3350 17 17 g PO DAILY 09/23/24 10/11/24 History gram/dose oral powder (Miralax) ticagrelor 90 mg tablet (Brilinta) 90 mg PO BID 09/23/24 10/11/24 History acetaminophen 325 mg rectal 325 mg NV DIRECTED PRN 10/11/24 10/11/24 History suppository PAIN/FEVER--UNABLE TO TAKE PO acetaminophen 325 mg tablet 650 mg PO Q4H PRN PAIN/FEVER 10/11/24 10/11/24 History (Tylenol) cyanocobalamin (vitamin B-12) 1,000 mcg PO DAILY 10/11/24 10/11/24 History 1,000 mcg tablet (Vitamin B-12) loperamide 2 mg tablet 2 mg PO DIRECTED PRN Diarrhea 10/11/24 10/11/24 History meclizine 12.5 mg tablet 12.5 mg PO TID 10/11/24 10/11/24 History nitrofurantoin 100 mg PO BID 10/11/24 10/11/24 History monohydrate/macrocrystals 100 mg capsule (Macrobid) Past Med/Surg History Problem List (Updated 10/11/24 @ 19:10 by Silvia Whitlock MD) Serum total bilirubin elevated (Acute) Acute hypokalemia (Acute) Generalized weakness (Acute) Hypocalcemia (Acute) Hypomagnesemia (Acute) Chest pain (Acute) Hypocalcemia Hypophosphatemia Atrial fibrillation with RVR Prediabetes History of ventricular tachycardia non-sustained GERD (gastroesophageal reflux disease) Hypothyroidism Hyperlipidemia Hypomagnesemia (Acute) Hypokalemia (Acute) Anemia (Acute) Medical History (Updated 10/11/24 @ 19:10 by Silvia Whitlock MD) Right sided weakness 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Stroke-like symptoms Anemia Stroke-like symptoms Vomiting Acute UTI Acute CVA (cerebrovascular accident) Ambulatory dysfunction 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Sequ[place], post-stroke Acute ischemic stroke Social History (Updated 10/11/24 @ 19:58 by IFTIKHAR Duran) Smoking Status: Never smoker Hx Alcohol Use: No Hx Substance Use: No Preferred Language: [place] Communication Ability: Effective Biology Specimen Technician Required: No Beliefs That Will Affect Care: Pentecostalism Pentecostalism Beliefs: Patient stated "no Jehovahs and no Mormons, I don't want any of them around here." Current Living Situation: Family Current Living Situation Comment: c/ adult son, [address]st floor apartment, [address] Other Information That Helps Us Care for You: No Feels Safe at Home: Yes Safety Concerns: Feels Safe At This Time Assistive Devices: Glasses and Walker Review of Systems Review of Systems: All systems reviewed & are unremarkable except as noted in HPI & below Physical Exam Physical Exam: General/Psych: WD/WN, ill appearing, pale, sitting up in bed, NAD, conversing easily, euthymic affect Head: normocephalic, atraumatic Eyes: normal inspection, PERRL, conjunctivae pink, anicteric sclerae ENT: external ear and nose normal, oropharynx normal Neck: normal visual inspection, trachea midline, Respiratory: normal respiratory effort, lungs clear to auscultation, no wheeze/rales/rhonchi, no accessory muscle use Cardiovascular: irregular and tachycardic rate and rhythm, no murmur/rub/gallop, no JVD Extremities: no cyanosis or clubbing, normal peripheral pulses, no BLE edema Abdomen/GI: normal bowel sounds, soft, nontender, no hepatosplenomegaly Neurologic/MSK: A+Ox3, motor strength 5/5, moves all extremities Skin: no rashes, normal color, warm and dry Results & Data Results & Data Vital Signs (Past 12 Hours) Vital Signs Temp Pulse Resp BP BP Pulse Ox O2 Del Method 10/11/24 18:30 152/93 H 10/11/24 18:30 152/93 H 10/11/24 18:30 118 H 22 96 10/11/24 18:24 107 H 23 94 10/11/24 18:12 158 H 23 10/11/24 18:09 119 H 10/11/24 18:06 137 H 26 H 10/11/24 18:00 147/83 H 10/11/24 18:00 147/83 H 10/11/24 17:45 122 H 22 10/11/24 17:42 109 H 24 10/11/24 17:30 152/86 H 10/11/24 17:30 152/86 H 10/11/24 17:30 105 H 20 95 10/11/24 17:30 152/86 H 10/11/24 17:27 110 H 20 94 10/11/24 17:12 157/71 H 10/11/24 17:00 129 H 38 H 93 10/11/24 16:57 119 H 20 91 Room Air 10/11/24 16:57 91 Room Air 10/11/24 16:54 135/101 H 10/11/24 16:40 96/58 L 10/11/24 16:40 Room Air 10/11/24 16:40 36.9 C 122 H 20 145/86 H 94 Room Air O2 Flow Rate 10/11/24 18:30 10/11/24 18:30 10/11/24 18:30 10/11/24 18:24 10/11/24 18:12 10/11/24 18:09 10/11/24 18:06 10/11/24 18:00 10/11/24 18:00 10/11/24 17:45 10/11/24 17:42 10/11/24 17:30 10/11/24 17:30 10/11/24 17:30 10/11/24 17:30 10/11/24 17:27 10/11/24 17:12 10/11/24 17:00 10/11/24 16:57 10/11/24 16:57 10/11/24 16:54 10/11/24 16:40 10/11/24 16:40 10/11/24 16:40 0 Laboratory Results Short CBC 10/11/24 10/11/24 Range/Units 17:10 17:44 WBC Cancelled 8.27 Hgb Cancelled 7.7 L Hct Cancelled 22.8 L Plt Count Cancelled 439 H BMP 10/11/24 17:10 Sodium 140 Potassium 2.3 L* Chloride 100 Carbon Dioxide 28 BUN 12 Creatinine 0.57 L Glucose 134 H Calcium 6.0 L Liver Function 10/11/24 Range/Units 17:10 Total Bilirubin 2.8 H (0.2-1.0) mg/dl AST 14 (13-39) U/L ALT 9 (7-52) U/L Alkaline Phosphatase 75 (34-104) U/L Albumin 3.6 (3.4-5.0) gm/dl I have independently reviewed and interpreted patient's admitting labs including CBC, CMP, PTT, PT/INR, mag and troponin. Diagnostic Findings Chest X-Ray 10/11/24 16:57 Clinical History: Sepsis Technique: A frontal view of the chest was obtained Findings: There are no definite pulmonary infiltrates. The heart size is at the upper limit of normal. No pleural effusion or pneumothorax is seen. There is no definite pulmonary nodule. No fracture is noted. No foreign body is seen Impression: No active disease Electronically signed by Brian Rain 10-11-2024 6:30 PM ECG Additional Comments: I have independently reviewed and interpreted patient's admitting EKG which revealed: A fib with RVR at rate of 152 bpm Code Status & VTE Plan Code Status Full Code Supervising Physician Co-Signing Physician Notes delayed entry date of service noted above Attending Addendum: Case reviewed with the advanced practitioner. I have personally performed a history and physical examination on the patient. I have reviewed the advanced practitioner's documentation on the date of service referenced in note, and I agree with, and take responsibility for the plan of care. please refer to her notes for full details patient seen and examined, records reviewed by myself as well on exam, patient diagnoses and plan of care as per advanced practitioner's notes I spent a total of 40 minutes coordinating, documenting, and providing care for this patient, excluding time spent in the performance of separately billed services or time spent by another provider/QHP. Omid Ortiz MD (6) Anemia Anemia type: unspecified type Qualified Code(s): D64.9 - Anemia, unspecified
[2024-10-11] MEDS ORDERED: POTASSIUM PHOS 3 MMOL/1 ML INFUSION IV STA (19:38)
[2024-10-11] MEDS: POTASSIUM CHLORIDE CRTAB 20 MEQ TABCR PO STA (19:53)
[2024-10-11] MEDS: MAGNESIUM OXIDE 400 MG TAB PO STA (20:17)
[2024-10-11] MEDS: POTASSIUM CHLORIDE 20 MEQ/15 ML UDC PO STA (20:17)
[2024-10-11] MEDS: HEPARIN 25000 UNIT/500 ML D5W 25,000 UNITS/500 ML BAG IV SCH (20:18)
[2024-10-11] MEDS: Heparin IV Adult Wt-Based Low-Dose *NO* INITIAL Bolus Protocol IV STA (20:18)
[2024-10-11] MEDS: POTASSIUM PHOSPHATE 21 MMOL in SODIUM CHLORIDE 0.9% 500 ML IV ONE (20:50)
[2024-10-11] MEDS: MECLIZINE 12.5 MG TAB PO SCH (22:08)
[2024-10-11] MEDS: TICAGRELOR 90 MG TAB PO SCH (22:08)
[2024-10-11 22:39] LABS: Appearance Urine Clear (Clear); Bacteria Urine Automated None Seen (None Seen); Cast Urine Automated 0-2 /lpf (0-2); Epithelial Cell Urine Auto 0-2 /hpf (0-2); Glucose Urine UA Negative (Negative); WBC Urine Automated 0-5 /hpf (0-5)
[2024-10-12 03:06] LABS: Anion Gap 9.0 (3-11); Blood Urea Nitrogen 8.0 mg/dl (6-23); Calcium 5.8 mg/dl (8.6-10.3); Carbon Dioxide 25.0 mmol/L (21-32); Chloride 107.0 mmol/L (98-107); Creatinine Clr Calc Pharmacy 98.5 ml/min; Glucose 119.0 mg/dl (70-99(Fasting)); Magnesium 1.6 mg/dl (1.7-2.4); Potassium 3.2 mmol/L (3.5-5.1); Sodium 141.0 mmol/L (136-145)
[2024-10-12] MEDS: MAGNESIUM SULFATE / D5W 1 GM/100 ML BAG IV SCH (03:36)
[2024-10-12] MEDS: CALCIUM GLUCONATE 1,000 MG/60 ML BAG IV SCH (03:36)
[2024-10-12 03:39] LABS: ANTI-Xa, UFH(UnfractionatedHep 0.28 IU/ml (0.3-0.7)
[2024-10-12] MEDS: POTASSIUM CHLORIDE CRTAB 20 MEQ TABCR PO STA (05:14)
[2024-10-12 06:03] LABS: Anion Gap 9.0 (3-11); Blood Urea Nitrogen 8.0 mg/dl (6-23); Calcium 6.3 mg/dl (8.6-10.3); Carbon Dioxide 25.0 mmol/L (21-32); Chloride 106.0 mmol/L (98-107); Creatinine Clr Calc Pharmacy 93.9 ml/min; Glucose 137.0 mg/dl (70-99(Fasting)); Magnesium 1.9 mg/dl (1.7-2.4); Potassium 2.9 mmol/L (3.5-5.1); Sodium 140.0 mmol/L (136-145)
[2024-10-12] MEDS: LEVOTHYROXINE SODIUM 100 MCG TABLET PO SCH (08:15)
--- NOTE | 2024-10-12 09:00 | Cardiology Consultation ---
Date of Consultation October 12, 2024 Assessment & Plan (1) Atrial fibrillation with RVR: (2) Hypokalemia: (3) Hypomagnesemia: (4) Anemia: Plan Assessment: 79 year old female with recent history of CVA x2 and recent anemia requiring transfusion presents to the ER with chest discomfort, noted to be in A-fib with RVR, laboratory testing shows significant electrolyte abnormalities and HgB of 7.7 without gerson bleeding. Cardiology requested for further assessment/recommendations. Plan: 1. Atrial fibrillation with RVR -No known prior history, but suspect this may have been a contributing factor to two recent CVAs -Recent echo shows preserved LVEF, no wall motion abnormalities and mild AI, no other acute findings. -Continue Metoprolol succinate but increase to 25mg PO BID for elevated heart rates -Patient with life long chronic anemia, required transfusion recently. Patient is not a candidate for triple therapy and in light of finding A-fib as well as low HgB, would recommend that both ASA and Brilinta be placed on hold. may continue heparin gtt with close monitoring of H/H. 2. Hypokalemia 3. Hypomagesemia -Ongoing management per primary team with supplementation. Goal serum K > 4.0 and Serum mag > 2.0 -reports of acute diarrhea and poor oral intake a likely contributing factor 4. Anemia -Per review of chart, reports of life-long anemia. -Recently required transfusion -Ongoing management per primary team. anemia work up Case has been discussed with Dr. Chamberlain. Further recommendations regarding plan of care as per his assessment. I spent a total of 40 minutes on the date of service in preparation, delivery, documentation of the care provided to the patient excluding any time spent in the performance of separately billed services. IFTIKHAR Haque [facility] Supervising Physician Co-Signing Physician Notes Attending attestation: Case reviewed with the advanced practitioner. I have personally performed a history and physical examination on the patient. I have reviewed the advanced practitioner's documentation on the date of service referenced in note, and I agree with, and take responsibility for the plan of care. EKG on presentation 10/11/2024 at 1655 revealed newly recognized atrial fibrillation with rapid ventricular response, 152 bpm. Patient subsequently converted to sinus rhythm overnight last night and remains in sinus rhythm with rates in the 80s to 90s. 08/01/24: MRI brain revealed small acute/subacute ischemic injury in the left thalamus prompting aspirin plus clopidogrel. 08/26/2024: MRI brain revealed new infarct of the left posterior limb of the internal capsule prompting transition to aspirin plus Brilinta. -At this point, would consider that perhaps both of the previous stroke episodes were related to atrial fibrillation. Hold aspirin and Brilinta. Proceed with conscious unfractioned heparin infusion. Given her age of 79 years and weight of exactly 60 kg, I think that the most prudent Eliquis dose for her would be 2.5 mg twice daily. -Patient with noted concerns of anemia without iron deficiency dating back to her admission in July,. -Ultimately, best approach may be to consider percutaneous left atrial appendage occlusion device as outpatient. Increase metoprolol succinate to 25 mg twice daily. Had recent echocardiogram on 08/26/2024 with LVEF of 65%, mild concentric LVH, mild mitral regurgitation, mild tricuspid regurgitation, pulmonary artery systolic pressure estimated be 44 mmHg (mildly elevated at that time. No need to repeat echocardiogram at this time. I spent a total of 20 minutes coordinating, documenting, and providing care for this patient excluding time spent in the performance of separately billed services or time spent by another provider. Paul Chamberlain DO History of Present Illness Reason for Consultation: new onset A-fib with RVR Requesting Physician: Annette luz Attending Physician: Sriram Scott MD History of Present Illness HPI: Patient is a 79 year old female with PMHx of 2 recent CVAs (July and August 2024), history of non-sustained VT, Menier's disease, hypothyroidism, GERD, HLD, recent anemia in which she had received 2 units of PRBCs in the ED 09/23/24 for a HgB of around 5.0 that presented to the ER yesterday with chest pain, fatigue and shortness of breath x 3 days, found to be in A-fib with RVR. Of note, patient has also had recent diarrhea and poor oral intake, Serum K 2.3, Ca 6.0, Phos 1.4, and Mag 0.9 EKG A-fib with RVR, rate 152bpm H/H 7.7/22.8 Patient was placed on ASA and Brilinta s/t her recent CVAs, She was started on a heparin gtt by admitting team. UPon seeing patient, resting in bed at this time. describes a heart racing sensation which has resolved. Residual right sided weakness s/p CVA Review of telemetry shows that patient is SR rates 90's-120's. Converted to SR at 2100 last night. notation of occasional PACs Allergies Allergy/AdvReac Type Severity Reaction Status Date / Time aspirin AdvReac Mild per pt she Verified 10/11/24 18:35 gets "really bad heartburn and indigestion" Home Medications Medication Instructions Recorded Confirmed Type acetaminophen 300 mg-codeine 30 mg 1 - 2 tab PO Q6H PRN Pain 07/31/24 10/11/24 History tablet levothyroxine 100 mcg tablet 100 mcg PO DAILYBB 07/31/24 10/11/24 History aspirin 81 mg tablet,delayed 81 mg PO DAILY #0 tabs 08/02/24 10/11/24 Rx release atorvastatin 40 mg tablet 40 mg PO QAM #0 tabs 08/02/24 10/11/24 Rx metoprolol succinate 25 mg 25 mg PO QAM #0 tabs 08/02/24 10/11/24 Rx tablet,extended release 24 hr pantoprazole 40 mg tablet,delayed 40 mg PO BID #60 tabs 09/01/24 10/11/24 Rx release bisacodyl 10 mg rectal suppository 10 mg ME DAILY PRN Constipation 09/23/24 10/11/24 History polyethylene glycol 3350 17 17 g PO DAILY 09/23/24 10/11/24 History gram/dose oral powder (Miralax) ticagrelor 90 mg tablet (Brilinta) 90 mg PO BID 09/23/24 10/11/24 History acetaminophen 325 mg rectal 325 mg ME DIRECTED PRN 10/11/24 10/11/24 History suppository PAIN/FEVER--UNABLE TO TAKE PO acetaminophen 325 mg tablet 650 mg PO Q4H PRN PAIN/FEVER 10/11/24 10/11/24 History (Tylenol) cyanocobalamin (vitamin B-12) 1,000 mcg PO DAILY 10/11/24 10/11/24 History 1,000 mcg tablet (Vitamin B-12) loperamide 2 mg tablet 2 mg PO DIRECTED PRN Diarrhea 10/11/24 10/11/24 History meclizine 12.5 mg tablet 12.5 mg PO TID 10/11/24 10/11/24 History nitrofurantoin 100 mg PO BID 10/11/24 10/11/24 History monohydrate/macrocrystals 100 mg capsule (Macrobid) Patient History Medical History (Updated 10/11/24 @ 19:10 by Silvia Whitlock MD) Right sided weakness 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Stroke-like symptoms Anemia Stroke-like symptoms Vomiting Acute UTI Acute CVA (cerebrovascular accident) Ambulatory dysfunction 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Sequ[place], post-stroke Acute ischemic stroke Social History (Updated 10/11/24 @ 19:58 by IFTIKHAR Duran) Smoking Status: Never smoker Hx Alcohol Use: No Hx Substance Use: No Preferred Language: Gibraltarian Communication Ability: Effective Supervisor Dry Paste Required: No Beliefs That Will Affect Care: Episcopalian Episcopalian Beliefs: Patient stated "no Jehovahs and no Mormons, I don't want any of them around here." Current Living Situation: Family Current Living Situation Comment: c/ adult son, [address]st floor apartment, [address] Other Information That Helps Us Care for You: No Feels Safe at Home: Yes Safety Concerns: Feels Safe At This Time Assistive Devices: Glasses and Walker Review of Systems Review of Systems: All systems reviewed & are unremarkable except as noted in HPI & below Physical Exam Constitutional: well developed and well nourished; no acute distress and not ill appearing Neck: normal visual inspection and trachea midline Respiratory: normal respiratory effort, lungs clear to auscultation Cardiovascular: Rate/Rhythm: regular rate and regular rhythm Vessels: dors ezequiel pedis pulses present; no JVD Skin: no rashes, warm and dry Psychiatric: A+Ox3, euthymic affect Results & Data Vital Signs (Past 12 Hours) Vital Signs Pulse Pulse Resp BP BP Pulse Ox Pulse Ox 10/12/24 08:48 90 23 108/62 94 10/12/24 07:05 86 10/12/24 06:30 87 23 92 10/12/24 06:12 91 H 20 93 10/12/24 06:00 116/58 L 10/12/24 06:00 116/58 L 10/12/24 05:57 84 25 H 92 10/12/24 05:51 84 24 92 10/12/24 05:42 99 H 21 94 10/12/24 05:30 84 20 93 10/12/24 05:21 109 H 24 95 10/12/24 05:15 88 21 94 10/12/24 05:00 97 H 20 93 10/12/24 05:00 98/52 L 10/12/24 05:00 98/52 L 10/12/24 05:00 98/52 L 10/12/24 04:51 84 24 93 10/12/24 04:48 91 H 21 92 10/12/24 04:33 99 H 21 91 10/12/24 04:21 84 24 93 10/12/24 04:15 86 24 92 10/12/24 04:00 102/47 L 10/12/24 04:00 102/47 L 10/12/24 04:00 102/47 L 10/12/24 03:57 106 H 26 H 92 10/12/24 03:48 88 25 H 92 10/12/24 03:30 87 26 H 93 10/12/24 03:12 85 24 93 10/12/24 03:00 100/50 L 10/12/24 03:00 100/50 L 10/12/24 03:00 90 25 H 93 10/12/24 02:45 111 H 22 93 10/12/24 02:30 92 H 26 H 93 10/12/24 02:21 94 H 26 H 93 10/12/24 02:15 96 H 25 H 93 10/12/24 02:00 122/63 10/12/24 02:00 122/63 10/12/24 02:00 91 H 22 95 10/12/24 01:54 89 25 H 92 10/12/24 01:48 91 H 24 92 10/12/24 01:30 94 H 23 92 10/12/24 01:26 111/56 L 10/12/24 01:21 90 24 93 10/12/24 01:00 103/71 10/12/24 00:54 112 H 22 93 10/12/24 00:48 98 H 19 93 10/12/24 00:39 10/12/24 00:24 101 H 22 92 10/12/24 00:18 21 10/12/24 00:17 120/69 10/12/24 00:17 120/69 10/12/24 00:17 120/69 10/12/24 00:06 105 H 27 H 10/11/24 23:30 96 H 28 H 10/11/24 23:19 98 H 10/11/24 23:15 97 H 22 10/11/24 23:00 27 H 10/11/24 22:57 117 H 28 H 10/11/24 22:42 120 H 28 H 10/11/24 22:39 118 H 27 H 10/11/24 22:30 119/66 10/11/24 22:30 118 H 16 119/66 96 10/11/24 22:27 119 H 30 H 10/11/24 22:12 121 H 26 H 95 10/11/24 21:54 105 H 19 96 10/11/24 21:34 103 H 20 125/73 95 10/11/24 21:34 95 10/11/24 21:30 125/73 10/11/24 21:27 109 H 20 96 10/11/24 21:21 102 H 21 95 10/11/24 21:18 103 H 24 95 10/11/24 21:00 116/63 10/11/24 21:00 116/63 10/11/24 21:00 103 H 18 116/63 95 O2 Del Method O2 Del Method 10/12/24 08:48 10/12/24 07:05 10/12/24 06:30 10/12/24 06:12 10/12/24 06:00 10/12/24 06:00 10/12/24 05:57 10/12/24 05:51 10/12/24 05:42 10/12/24 05:30 10/12/24 05:21 10/12/24 05:15 10/12/24 05:00 10/12/24 05:00 10/12/24 05:00 10/12/24 05:00 10/12/24 04:51 10/12/24 04:48 10/12/24 04:33 10/12/24 04:21 10/12/24 04:15 10/12/24 04:00 10/12/24 04:00 10/12/24 04:00 10/12/24 03:57 10/12/24 03:48 10/12/24 03:30 10/12/24 03:12 10/12/24 03:00 10/12/24 03:00 10/12/24 03:00 10/12/24 02:45 10/12/24 02:30 10/12/24 02:21 10/12/24 02:15 10/12/24 02:00 10/12/24 02:00 10/12/24 02:00 10/12/24 01:54 10/12/24 01:48 10/12/24 01:30 10/12/24 01:26 10/12/24 01:21 10/12/24 01:00 10/12/24 00:54 10/12/24 00:48 10/12/24 00:39 Room Air 10/12/24 00:24 10/12/24 00:18 10/12/24 00:17 10/12/24 00:17 10/12/24 00:17 10/12/24 00:06 10/11/24 23:30 10/11/24 23:19 10/11/24 23:15 10/11/24 23:00 10/11/24 22:57 10/11/24 22:42 10/11/24 22:39 10/11/24 22:30 10/11/24 22:30 Room Air 10/11/24 22:27 10/11/24 22:12 10/11/24 21:54 10/11/24 21:34 Room Air 10/11/24 21:34 Room Air 10/11/24 21:30 10/11/24 21:27 10/11/24 21:21 10/11/24 21:18 10/11/24 21:00 10/11/24 21:00 10/11/24 21:00 Room Air Laboratory Results Cardiac Enzymes 10/11/24 Range/Units 17:10 AST 14 (13-39) U/L Troponin I High Sens 9.6 (0-14) pg/ml Coagulation 10/11/24 Range/Units 17:10 PT 13.4 H (9.0-12.0) Seconds APTT 25 (21-31) Seconds CBC 10/11/24 10/11/24 Range/Units 17:10 17:44 WBC Cancelled 8.27 RBC Cancelled 2.65 L Hgb Cancelled 7.7 L Hct Cancelled 22.8 L Plt Count Cancelled 439 H Neut # (Auto) Cancelled 7.48 H Lymph # (Auto) Cancelled 0.35 L Addison # (Auto) Cancelled 0.31 Eos # (Auto) Cancelled 0.01 Baso # (Auto) Cancelled 0.04 Comprehensive Metabolic Panel 10/11/24 10/12/24 10/12/24 Range/Units 17:10 02:14 05:09 Sodium 140 141 140 (136-145) mmol/L Potassium 2.3 L* 3.2 L D 2.9 L (3.5-5.1) mmol/L Chloride 100 107 106 (98-107) mmol/L Carbon Dioxide 28 25 25 (21-32) mmol/L BUN 12 8 8 (6-23) mg/dl Creatinine 0.57 L 0.41 L 0.43 L (0.6-1.2) mg/dl Glucose 134 H 119 H 137 H (70-99(Fasting)) mg/dl Calcium 6.0 L 5.8 L* 6.3 L (8.6-10.3) mg/dl AST 14 (13-39) U/L ALT 9 (7-52) U/L Alkaline Phosphatase 75 (34-104) U/L Total Protein 6.1 (6.0-8.3) gm/dl Albumin 3.6 (3.4-5.0) gm/dl Intake and Output 10/11/24 10/12/24 10/12/24 22:59 06:59 14:59 Intake Total 1620 / 2463.6 843.6 / 2463.6 169.5 / 169.5 Output Total 300 / 300 Balance 1320 / 2163.6 843.6 / 2163.6 169.5 / 169.5 Intake: IV 1620 / 2463.6 843.6 / 2463.6 169.5 / 169.5 Calcium Gluconate 1,000 mg In 120 / 240 120 / 240 60 ml @ 240 mls/hr IV Q15M JORGE Rx#:[id number] Heparin 55299 Unit/500 ml D5w 131.6 / 131.6 69.5 / 69.5 25,000 units In 500 ml @ 750 UNITS/HR 15 mls/hr IV .Q24H JORGE Rx#:[id number] Magnesium Sulfate / D5w 1 gm In 200 / 285 85 / 285 100 / 100 100 ml @ 50 mls/hr IV Q2H JORGE Rx#:[id number] Potassium Chloride / Wtr 10 meq 300 / 300 In 100 ml @ 100 mls/hr IV Q1H JORGE Rx#:[id number] Potassium Phosphate 21 mmol In 507 / 507 Sodium Chloride 0.9% 500 ml @ 88 mls/hr IV ONE ONE Rx#: [id number] Sodium Chloride 0.9% 1,000 ml @ 1000 / 1000 999 mls/hr IV .Q1H1M ONE Rx#: [id number] Oral 0 / 0 Output: Urine Amount (Catheter) 300 / 300 External 300 / 300 Other: Weight 60.3 kg Weight Measurement Method [employer] [facility] [employer] [facility] Diagnostic Findings Echocardiogram 08/26/2024 LVEF 60-65% Mild concentric LVH Mild AI Mild TR PASP 44mmHg 10/11/2024: Chest x-ray negative PG Care Time/CCT Total # of Minutes Spent Total Time Spent with Patient: Total time spent is greater than 50% in coordination of care (as documented) at patient's floor/unit and/or counseling patient: Coding [place] [address] IN/OBS CONSULT LVL 5,80M Patient Type Established History Comprehensive Exam Comprehensive Diagnoses Atrial fibrillation with RVR I48.91 Hypokalemia E87.6 Hypomagnesemia E83.42 Anemia D64.9 Anemia type: unspecified type Time Spent (min) 60 Comment IFTIKHAR Loaiza spent 40 minutes, Dr. Chamberlain spent 20 minutes (4) Anemia Anemia type: unspecified type Qualified Code(s): D64.9 - Anemia, unspecified
[2024-10-12] MEDS: ASPIRIN 81 MG ECTAB PO SCH (09:32)
[2024-10-12] MEDS: METOPROLOL SUCC 25MG EXT REL TAB PO SCH ×2 (09:33→20:44)
[2024-10-12] MEDS: CYANOCOBALAMIN (B-12) 500 MCG TABLET PO SCH (09:33)
[2024-10-12] MEDS: ATORVASTATIN 40 MG TAB PO SCH (09:34)
[2024-10-12 09:42] LABS: ANTI-Xa, UFH(UnfractionatedHep 0.29 IU/ml (0.3-0.7)
[2024-10-12 10:36] LABS: Adenovirus F 40/41 PCR Not Detected (NotDetected); Campylobacter PCR Not Detected (NotDetected); Enteroaggregative E.coli(EAEC) Not Detected (NotDetected); Shiga-like Toxin E.coli (STEC) Not Detected (NotDetected); Vibrio species PCR Not Detected (NotDetected)
--- NOTE | 2024-10-12 13:33 | Hospitalist Progress Note ---
Date of Service October 12, 2024 Assessment & Plan (1) Atrial fibrillation with RVR: (2) Hypokalemia: (3) Hypomagnesemia: (4) Hypophosphatemia: (5) Hypocalcemia: (6) Anemia: (7) Hypothyroidism: (8) GERD (gastroesophageal reflux disease): (9) Hyperlipidemia: Plan Patient is an 79 year old female with PMH significant for history of two recent strokes (July 2024, August 2024), Mnire's disease, hypothyroidism, GERD, hyperlipidemia who presented to the ED on 10/11/2024 with chest pain x3 days and is admitted for new onset A fib with RVR. New onset A fib with RVR Patient presented with pleuritic chest pain x3 days with associated SOB and fatigue Likely precipitated due to electrolyte abnormalities --CXR :No active disease --ECHO: EF 60 to 65%. Mild concentric LVH. Mild aortic, tricuspid regurgitation. Estimated systolic pulmonary pressure 44 mmHg --Normal TSH -- Continue metoprolol succinate--adjust dose per Cards -- Continue IV heparin -- Appreciate cardiology input --Monitor and replete electrolytes as needed Hypokalemia, hypomagnesemia, hypophosphatemia, hypocalcemia Likely due to significant diarrhea recently Check PTH, vitamin D levels Monitor and replete electrolytes as needed Anemia Patient with reported lifelong history of chronic anemia Previous admission iron studies and vitamin B12 WNL Hemoglobin 7.7 on admission Received 2 units PRBC in our ED on 09/23/2024 for Hgb ~5 per patient Monitor CBC No acute bleeding issues Recent stroke Two recent strokes in July and August 2024 Continue aspirin and Brilinta Hypothyroidism Continue levothyroxine GERD Continue PPI Hyperlipidemia Continue statin DVT Px: heparin drip Code Status: FULL CODE PCP: Italo Barboza ([facility]) Disposition: Expect to discharge home when stable Admission and Anticipated Discharge Date Admission Date: October 11, 2024 Subjective Patient is seen and examined at bedside States having some chest pain discomfort with deep breathing Also reports minimal cough but otherwise no other complaints Heart rate is controlled today No recurrence of diarrhea while hospitalized Denies any nausea, vomiting, abdominal pain, dyspnea Review of Systems Review of Systems: All systems reviewed & are unremarkable except as noted in Subjective Physical Exam Physical Exam: Physical Exam: Vitals signs as noted above General Appearance:Moderately built and nourished, no apparent distress Head: normocephalic, Atraumatic Eyes: normal inspection, EOMI Neck: supple, Trachea midline Respiratory/Chest: Normal breath sounds, basal crackles, No accessory muscle use Cardiovascular: S1, S2, No murmur Abdomen/GI:Soft, Non tender, Bowel sounds present Extremities/Musculoskeletal:normal inspection, no edema Neurologic/Psych:AAOX3, grossly no focal neurological deficits Skin: normal color, warm Results & Data Results & Data Vital Signs (Past 12 Hours) Vital Signs Temp Pulse Pulse Resp BP BP Pulse Ox 10/12/24 10:00 36.9 C 98 H 20 144/69 H 94 10/12/24 09:52 89 10/12/24 08:48 90 23 108/62 94 10/12/24 07:05 86 10/12/24 06:30 87 23 92 10/12/24 06:12 91 H 20 93 10/12/24 06:00 116/58 L 10/12/24 06:00 116/58 L 10/12/24 05:57 84 25 H 92 10/12/24 05:51 84 24 92 10/12/24 05:42 99 H 21 94 10/12/24 05:30 84 20 93 10/12/24 05:21 109 H 24 95 10/12/24 05:15 88 21 94 10/12/24 05:00 97 H 20 93 10/12/24 05:00 98/52 L 10/12/24 05:00 98/52 L 10/12/24 05:00 98/52 L 10/12/24 04:51 84 24 93 10/12/24 04:48 91 H 21 92 10/12/24 04:33 99 H 21 91 10/12/24 04:21 84 24 93 10/12/24 04:15 86 24 92 10/12/24 04:00 102/47 L 10/12/24 04:00 102/47 L 10/12/24 04:00 102/47 L 10/12/24 03:57 106 H 26 H 92 10/12/24 03:48 88 25 H 92 10/12/24 03:30 87 26 H 93 10/12/24 03:12 85 24 93 10/12/24 03:00 100/50 L 10/12/24 03:00 100/50 L 10/12/24 03:00 90 25 H 93 07/09/25 02:45 111 H 22 93 10/12/24 02:30 92 H 26 H 93 10/12/24 02:21 94 H 26 H 93 10/12/24 02:15 96 H 25 H 93 10/12/24 02:00 122/63 10/12/24 02:00 122/63 10/12/24 02:00 91 H 22 95 10/12/24 01:54 89 25 H 92 10/12/24 01:48 91 H 24 92 10/12/24 01:30 94 H 23 92 O2 Del Method 10/12/24 10:00 Room Air 10/12/24 09:52 10/12/24 08:48 10/12/24 07:05 10/12/24 06:30 10/12/24 06:12 10/12/24 06:00 10/12/24 06:00 10/12/24 05:57 10/12/24 05:51 10/12/24 05:42 10/12/24 05:30 10/12/24 05:21 10/12/24 05:15 10/12/24 05:00 10/12/24 05:00 10/12/24 05:00 10/12/24 05:00 10/12/24 04:51 10/12/24 04:48 10/12/24 04:33 10/12/24 04:21 10/12/24 04:15 10/12/24 04:00 10/12/24 04:00 10/12/24 04:00 10/12/24 03:57 10/12/24 03:48 10/12/24 03:30 10/12/24 03:12 10/12/24 03:00 10/12/24 03:00 10/12/24 03:00 10/12/24 02:45 10/12/24 02:30 10/12/24 02:21 10/12/24 02:15 10/12/24 02:00 10/12/24 02:00 10/12/24 02:00 10/12/24 01:54 10/12/24 01:48 10/12/24 01:30 Laboratory Results Short CBC 10/11/24 10/11/24 Range/Units 17:10 17:44 WBC Cancelled 8.27 Hgb Cancelled 7.7 L Hct Cancelled 22.8 L Plt Count Cancelled 439 H BMP 10/11/24 10/12/24 10/12/24 17:10 02:14 05:09 Sodium 140 141 140 Potassium 2.3 L* 3.2 L D 2.9 L Chloride 100 107 106 Carbon Dioxide 28 25 25 BUN 12 8 8 Creatinine 0.57 L 0.41 L 0.43 L Glucose 134 H 119 H 137 H Calcium 6.0 L 5.8 L* 6.3 L Liver Function 10/11/24 Range/Units 17:10 Total Bilirubin 2.8 H (0.2-1.0) mg/dl AST 14 (13-39) U/L ALT 9 (7-52) U/L Alkaline Phosphatase 75 (34-104) U/L Albumin 3.6 (3.4-5.0) gm/dl Urine 10/11/24 Range/Units 22:00 Urine Color Yellow Urine Appearance Clear (Clear) Urine pH 6.5 (4.5-7.5) Ur Specific [place] 1.014 (1.000-1.030) Urine Protein Trace H (Negative) Urine Glucose (UA) Negative (Negative) (6) Anemia Anemia type: unspecified type Qualified Code(s): D64.9 - Anemia, unspecified
[2024-10-12 13:37] LABS: Anion Gap 5.0 (3-11); Blood Urea Nitrogen 7.0 mg/dl (6-23); Calcium 6.3 mg/dl (8.6-10.3); Carbon Dioxide 28.0 mmol/L (21-32); Chloride 107.0 mmol/L (98-107); Creatinine Clr Calc Pharmacy 100.9 ml/min; Glucose 106.0 mg/dl (70-99(Fasting)); Magnesium 2.2 mg/dl (1.7-2.4); Potassium 3.4 mmol/L (3.5-5.1); Sodium 140.0 mmol/L (136-145)
[2024-10-12] MEDS: POTASSIUM CHLORIDE CRTAB 20 MEQ TABCR PO ONE (14:31)
[2024-10-12] MEDS: CALCIUM CARBONATE 500 MG CHEWABLE TAB PO SCH (14:31)
[2024-10-12] MEDS: ACETAMINOPHEN 325 MG TAB PO PRN (15:28)
[2024-10-12 16:28] LABS: Cdiff Toxin B Gene (2yr or >) Negative Cdiff Gene (Neg)
[2024-10-12] MEDS: LOPERAMIDE HCL 2 MG CAP PO PRN (16:49)
[2024-10-12 16:58] LABS: ANTI-Xa, UFH(UnfractionatedHep 0.32 IU/ml (0.3-0.7)
--- NOTE | 2024-10-12 17:29 | Electrocardiogram Report ---
Test Reason : Blood Pressure : */* mmHG Vent. Rate : 152 BPM Atrial Rate : * BPM P-R Int : * ms QRS Dur : 82 ms QT Int : 332 ms P-R-T Axes : * -30 101 degrees QTcB Int : 527 ms Atrial fibrillation with rapid ventricular response with premature ventricular or aberrantly conducte d complexes Left axis deviation Nonspecific ST and T wave abnormality Abnormal ECG When compared with ECG of 25-Aug-2024 20:29, Atrial fibrillation has replaced Sinus rhythm Vent. rate has increased by 56 bpm T wave inversion no longer evident in Inferior leads Inverted T waves have replaced nonspecific T wave abnormality in Anterior leads Confirmed by Marc Tapia ([id number]) on 10/12/2024 5:29:00 PM Referred By: Edgardo Elliott Confirmed By: Marc Tapia
[2024-10-13 06:36] LABS: Hematocrit (blood only) 21.0 % (37.0-47.0); Hemoglobin 7.0 g/dl (12.0-16.0); Mean Corpuscular Hemoglobin 29.2 pg (25.0-34.0); Mean Corpuscular Volume 87.5 fL (80.0-100.0); Platelet Count 380 K/uL (130-400); RDW Standard Deviation 61.0 fL (36.4-46.3); Red Blood Count 2.40 M/uL (4.20-5.40); White Blood Count 4.29 K/ul (4.8-10.8)
[2024-10-13 07:12] LABS: Anion Gap 6.0 (3-11); Blood Urea Nitrogen 8.0 mg/dl (6-23); Calcium 6.5 mg/dl (8.6-10.3); Carbon Dioxide 28.0 mmol/L (21-32); Chloride 107.0 mmol/L (98-107); Creatinine Clr Calc Pharmacy 98.5 ml/min; Glucose 94.0 mg/dl (70-99(Fasting)); Magnesium 2.1 mg/dl (1.7-2.4); Potassium 3.6 mmol/L (3.5-5.1); Sodium 141.0 mmol/L (136-145)
[2024-10-13 07:15] LABS: ANTI-Xa, UFH(UnfractionatedHep 0.35 IU/ml (0.3-0.7)
[2024-10-13] MEDS: ERGOCALCIFEROL 1250 MCG (50,000 UNITS) CAP PO SCH (09:01)
[2024-10-13] MEDS: POTASSIUM PHOSPHATE 21 MMOL in SODIUM CHLORIDE 0.9% 500 ML IV ONE (09:01)
[2024-10-13] MEDS: CALCIUM CARBONATE 500 MG CHEWABLE TAB PO SCH (09:05)
--- NOTE | 2024-10-13 09:16 | Cardiology Progress Note ---
Date of Service October 13, 2024 Assessment & Plan (1) Atrial fibrillation with RVR: (2) Hypokalemia: (3) Hypomagnesemia: (4) Anemia: Plan Assessment: 79 year old female with recent history of CVA x2 and recent anemia requiring transfusion presents to the ER with chest discomfort, noted to be in A-fib with RVR, laboratory testing shows significant electrolyte abnormalities and HgB of 7.7 without gerson bleeding. Cardiology requested for further assessment/recommendations. Plan 10/12/2024 1. Atrial fibrillation with RVR -No known prior history, but suspect this may have been a contributing factor to two recent CVAs -Recent echo shows preserved LVEF, no wall motion abnormalities and mild AI, no other acute findings. -Continue Metoprolol succinate but increase to 25mg PO BID for elevated heart rates -Patient with life long chronic anemia, required transfusion recently. Patient is not a candidate for triple therapy and in light of finding A-fib as well as low HgB, would recommend that both ASA and Brilinta be placed on hold. may continue heparin gtt with close monitoring of H/H. 2. Hypokalemia 3. Hypomagesemia -Ongoing management per primary team with supplementation. Goal serum K > 4.0 and Serum mag > 2.0 -reports of acute diarrhea and poor oral intake a likely contributing factor 4. Anemia -Per review of chart, reports of life-long anemia. -Recently required transfusion -Ongoing management per primary team. anemia work up 10/13/2024: -patient is doing well from a cardiac perspective. Offers no acute concerns. -HgB has continued to drop which is a significant concern. Patient denies any gerson bleeding and states "Rosanna been anemic since I was a kid". She states that she has been recommended to see hematology in the past, but did not think it would be of help. Encouraged patient to establish care with hematology for further evaluation. -Fortunately the patient has remained in normal sinus rhythm overnight, but given the fact that we know have documented Atrial fibrillation after patient has had two CVA's, the recommendation is to attempt anticoagulation; however, will need to watch HgB closely as the risk may outweigh the benefit. -Discussed Atrial fibrillation in detail and risk for a thromboembolic event. Also discussed bleeding risk and concern for a dropping HgB. -Case discussed with primary team. Patient is to remain off of Aspirin and Brilinta. We will continue Heparin gtt at this time with intention to transition to Eliquis 2.5mg PO BID if HgB stabilizes. -CHADSVASC score: 5. --Patient is to receive transfusion today, with repeat labs to follow. Case has been discussed with Dr. Chamberlain. Further recommendations regarding plan of care as per his assessment. I spent a total of 40 minutes on the date of service in preparation, delivery, documentation of the care provided to the patient excluding any time spent in the performance of separately billed services. IFTIKHAR Haque [facility] Admission and Anticipated Discharge Date Admission Date: October 11, 2024 Supervising Physician Co-Signing Physician Notes Attending attestation: Case reviewed with the advanced practitioner. I have personally performed a history and physical examination on the patient. I have reviewed the advanced practitioner's documentation on the date of service referenced in note, and I agree with, and take responsibility for the plan of care. I spent a total of 20 minutes coordinating, documenting, and providing care for this patient excluding time spent in the performance of separately billed services or time spent by another provider. Paul Chamberlain, Subjective 10/13/2024: Patient seen and examined in follow up today. Feeling fair. She denies any chest pain, pressure or palpitations. Denies any changes in her breathing. Remains on a heparin gtt. Labs, vitals, diagnostics, telemetry and documentation reviewed. H/H 7.0/21.0 Telemetry reviewed showing SR rates 80-90's. No acute events overnight. Review of Systems Review of Systems: All systems reviewed & are unremarkable except as noted in HPI & below Physical Exam Constitutional: well developed and well nourished; no acute distress and not ill appearing Neck: normal visual inspection and trachea midline Respiratory: normal respiratory effort, lungs clear to auscultation Cardiovascular: Rate/Rhythm: regular rate and regular rhythm Vessels: dorsalis pedis pulses present; no JVD Skin: no rashes, warm and dry Psychiatric: A+Ox3, euthymic affect Results & Data Vital Signs (Past 12 Hours) Vital Signs Temp Pulse Pulse Resp BP Pulse Ox O2 Del Method 10/13/24 08:00 36.7 C 84 18 114/57 L 95 Room Air 10/13/24 02:40 36.7 C 80 18 110/63 95 Room Air 10/12/24 22:27 36.8 C 82 16 105/62 96 Room Air 10/12/24 21:54 83 Laboratory Results CBC 10/13/24 Range/Units 05:55 WBC 4.29 L (4.8-10.8) K/ul RBC 2.40 L (4.20-5.40) M/uL Hgb 7.0 L (12.0-16.0) g/dl Hct 21.0 L (37.0-47.0) % Plt Count 380 (130-400) K/uL Comprehensive Metabolic Panel 10/12/24 10/13/24 Range/Units 12:43 05:55 Sodium 140 141 (136-145) mmol/L Potassium 3.4 L 3.6 (3.5-5.1) mmol/L Chloride 107 107 (98-107) mmol/L Carbon Dioxide 28 28 (21-32) mmol/L BUN 7 8 (6-23) mg/dl Creatinine 0.40 L 0.41 L (0.6-1.2) mg/dl Glucose 106 H 94 (70-99(Fasting)) mg/dl Calcium 6.3 L 6.5 L (8.6-10.3) mg/dl Intake and Output 10/12/24 10/13/24 10/13/24 22:59 06:59 14:59 Intake Total 493.733 / 860.033 96.8 / 860.033 96.267 / 96.267 Output Total 251 / 251 Balance 242.733 / 609.033 96.8 / 609.033 96.267 / 96.267 Intake: IV 143.733 / 410.033 96.8 / 410.033 96.267 / 96.267 Heparin 61539 Unit/500 ml D5w 143.733 / 310.033 96.8 / 310.033 96.267 / 96.267 25,000 units In 500 ml @ 800 UNITS/HR 16 mls/hr IV .Q24H [facility] Rx#:[id number] Oral 350 / 450 Output: Urine Amount (Catheter) 250 / 250 External 250 / 250 # Bowel Movements Other: # Unmeasured Voids 1 1 Weight 61.3 kg Weight Measurement Method Built in [facility] PG Care Time/CCT Total # of Minutes Spent Total Time Spent with Patient: Total time spent is greater than 50% in coordination of care (as documented) at patient's floor/unit and/or counseling patient: [place] [address] SUB INP/OBS CARE 3/50MIN Patient Type New History Detailed Exam Detailed Medical Decision Making High Complexity Diagnoses Atrial fibrillation with RVR I48.91 Hypokalemia E87.6 Hypomagnesemia E83.42 Anemia D64.9 Anemia type: unspecified type Time Spent (min) 50 Comment 40 minutes were spent by IFTIKHAR Loaiza, 10 minutes by Paul Chamberlain DO (4) Anemia Anemia type: unspecified type Qualified Code(s): D64.9 - Anemia, unspecified
[2024-10-13] MEDS: POTASSIUM PHOS 3 MMOL/1 ML INFUSION IV ONE (09:31)
[2024-10-13] MEDS: POT PHOSPHATE MONOBASIC W/ SOD TAB PO SCH (13:53)
[2024-10-13 14:16] LABS: Hematocrit (blood only) 20.0 % (37.0-47.0); Hemoglobin 6.8 g/dl (12.0-16.0)
[2024-10-13] MEDS ORDERED: SODIUM CHLORIDE 0.9% 100 ML IV PRN (14:17)
[2024-10-13 14:23] LABS: Iron 99 mcg/dl (35-150); Transferrin < 95 mg/dl (200-360)
[2024-10-13 14:25] LABS: Folate (Folic Acid),Ser orPlas 5.50 ng/ml (>5.38)
[2024-10-13 14:26] LABS: Vitamin B12 > 1500 pg/ml (180-914)
--- NOTE | 2024-10-13 14:37 | Hospitalist Progress Note ---
Date of Service October 13, 2024 Assessment & Plan (1) Atrial fibrillation with RVR: (2) Hypokalemia: (3) Hypomagnesemia: (4) Hypophosphatemia: (5) Hypocalcemia: (6) Anemia: (7) Hypothyroidism: (8) GERD (gastroesophageal reflux disease): (9) Hyperlipidemia: Plan Patient is an 79 year old female with PMH significant for history of two recent strokes (July 2024, August 2024), Mnire's disease, hypothyroidism, GERD, hyperlipidemia who presented to the ED on 10/11/2024 with chest pain x3 days and is admitted for new onset A fib with RVR. New onset A fib with RVR Patient presented with pleuritic chest pain x3 days with associated SOB and fatigue Likely precipitated due to electrolyte abnormalities --CXR :No active disease --ECHO: EF 60 to 65%. Mild concentric LVH. Mild aortic, tricuspid regurgitation. Estimated systolic pulmonary pressure 44 mmHg --Normal TSH -- Continue metoprolol succinate 25 mg twice a day -- Continue IV heparin -- Appreciate cardiology input --Monitor and replete electrolytes as needed -- Consider to transition IV heparin to low-dose Eliquis once hemoglobin stable Hypokalemia, hypomagnesemia, hypophosphatemia, hypocalcemia Likely due to significant diarrhea recently Stool studies negative (PCR, C. difficile) Monitor and replete electrolytes as needed Imodium as needed Vitamin D deficiency Started on vitamin D supplements Also on calcium supplements--adjust dose as needed Needs repeat vitamin D levels checked as outpatient Acute on chronic anemia Patient with reported lifelong history of chronic anemia Previous admission iron studies and vitamin B12 WNL Hemoglobin 6.8 today Received 2 units PRBC in our ED on 09/23/2024 for Hgb ~5 per patient Monitor CBC No acute bleeding issues Anemia workup pending Will transfuse 1 unit PRBCs today Advised to follow-up with hematology as outpatient Recent stroke Two recent strokes in July and August 2024 CVA thought to be secondary to A-fib Given anemia, high risk for bleeding, will discontinue aspirin, Brilinta as recommended by cardiology Started on anticoagulation as above for A-fib May need to resume aspirin as outpatient if hemoglobin remains stable given carotid artery disease on prior imaging Hypothyroidism Continue levothyroxine GERD Continue PPI Hyperlipidemia Continue statin DVT Px: heparin drip Code Status: FULL CODE PCP: Italo Barboza ([facility]) Disposition: Expect to discharge home when stable Admission and Anticipated Discharge Date Admission Date: October 11, 2024 Subjective Patient is seen and examined at bedside States feeling tired Also reports some dyspnea on exertion Denies any chest pain today Admits to have poor appetite States having normal bowel movement today Denies any nausea, vomiting, abdominal pain, dyspnea Discussed with cardiology today Review of Systems Review of Systems: All systems reviewed & are unremarkable except as noted in Subjective Physical Exam Physical Exam: Physical Exam: Vitals signs as noted above General Appearance:Moderately built and nourished, no apparent distress Head: normocephalic, Atraumatic Eyes: normal inspection, EOMI Neck: supple, Trachea midline Respiratory/Chest: Normal breath sounds, basal crackles, No accessory muscle use Cardiovascular: S1, S2, No murmur Abdomen/GI:Soft, Non tender, Bowel sounds present Extremities/Musculoskeletal:normal inspection, no edema Neurologic/Psych:AAOX3, grossly no focal neurological deficits Skin: normal color, warm Results & Data Results & Data Vital Signs (Past 12 Hours) Vital Signs Temp Pulse Resp BP Pulse Ox O2 Del Method 10/13/24 12:12 36.8 C 89 18 123/65 95 Room Air 10/13/24 08:00 36.7 C 84 18 114/57 L 95 Room Air 10/13/24 02:40 36.7 C 80 18 110/63 95 Room Air Laboratory Results Short CBC 10/13/24 10/13/24 10/13/24 Range/Units 05:55 12:55 12:55 WBC 4.29 L (4.8-10.8) K/ul Hgb 7.0 L Cancelled 6.8 L* (12.0-16.0) g/dl Hct 21.0 L Cancelled (37.0-47.0) % Plt Count 380 (130-400) K/uL 10/13/24 Range/Units 12:55 WBC (4.8-10.8) K/ul Hgb (12.0-16.0) g/dl Hct 20.0 L* (37.0-47.0) % Plt Count (130-400) K/uL BMP 10/13/24 05:55 Sodium 141 Potassium 3.6 Chloride 107 Carbon Dioxide 28 BUN 8 Creatinine 0.41 L Glucose 94 Calcium 6.5 L (6) Anemia Anemia type: unspecified type Qualified Code(s): D64.9 - Anemia, unspecified
[2024-10-13 16:16] LABS: Ferritin 3285.0 ng/ml (8-388)
--- NOTE | 2024-10-13 18:43 | Electrocardiogram Report ---
Test Reason : Blood Pressure : */* mmHG Vent. Rate : 97 BPM Atrial Rate : 97 BPM P-R Int : 138 ms QRS Dur : 82 ms QT Int : 392 ms P-R-T Axes : 63 -29 -9 degrees QTcB Int : 497 ms Sinus rhythm with Premature atrial complexes and PVCs Low voltage QRS Nonspecific T wave abnormality Abnormal ECG When compared with ECG of 11-Oct-2024 16:55, Sinus rhythm has replaced Atrial fibrillation Vent. rate has decreased by 55 bpm Nonspecific T wave abnormality now evident in Inferior leads Nonspecific T wave abnormality, improved in Lateral leads Confirmed by Marc Tapia ([id number]) on 10/13/2024 6:43:34 PM Referred By: Edgardo Elliott Confirmed By: Marc Tapia
[2024-10-13 20:38] LABS: Hematocrit (blood only) 25.0 % (37.0-47.0); Hemoglobin 8.3 g/dl (12.0-16.0)
[2024-10-14 07:16] LABS: Hematocrit (blood only) 24.1 % (37.0-47.0); Hemoglobin 8.1 g/dl (12.0-16.0); Mean Corpuscular Hemoglobin 29.2 pg (25.0-34.0); Mean Corpuscular Volume 87.0 fL (80.0-100.0); Platelet Count 372 K/uL (130-400); RDW Standard Deviation 57.4 fL (36.4-46.3); Red Blood Count 2.77 M/uL (4.20-5.40); White Blood Count 5.00 K/ul (4.8-10.8)
[2024-10-14 07:34] LABS: Anion Gap 7.0 (3-11); Blood Urea Nitrogen 8.0 mg/dl (6-23); Calcium 6.0 mg/dl (8.6-10.3); Carbon Dioxide 26.0 mmol/L (21-32); Chloride 108.0 mmol/L (98-107); Creatinine Clr Calc Pharmacy 131.3 ml/min; Glucose 102.0 mg/dl (70-99(Fasting)); Magnesium 1.7 mg/dl (1.7-2.4); Potassium 3.5 mmol/L (3.5-5.1); Sodium 141.0 mmol/L (136-145)
[2024-10-14 07:42] LABS: ANTI-Xa, UFH(UnfractionatedHep 0.28 IU/ml (0.3-0.7)
--- NOTE | 2024-10-14 08:58 | Cardiology Progress Note ---
Date of Service October 14, 2024 Assessment & Plan (1) Atrial fibrillation with RVR: (2) Hypokalemia: (3) Hypomagnesemia: (4) Anemia: Plan Assessment: 79 year old female with recent history of CVA x2 and recent anemia requiring transfusion presents to the ER with chest discomfort, noted to be in A-fib with RVR, laboratory testing shows significant electrolyte abnormalities and HgB of 7.7 without gerson bleeding. Cardiology requested for further assessment/recommendations. Plan 10/12/2024 1. Atrial fibrillation with RVR -No known prior history, but suspect this may have been a contributing factor to two recent CVAs -Recent echo shows preserved LVEF, no wall motion abnormalities and mild AI, no other acute findings. -Continue Metoprolol succinate but increase to 25mg PO BID for elevated heart rates -Patient with life long chronic anemia, required transfusion recently. Patient is not a candidate for triple therapy and in light of finding A-fib as well as low HgB, would recommend that both ASA and Brilinta be placed on hold. may continue heparin gtt with close monitoring of H/H. 2. Hypokalemia 3. Hypomagesemia -Ongoing management per primary team with supplementation. Goal serum K > 4.0 and Serum mag > 2.0 -reports of acute diarrhea and poor oral intake a likely contributing factor 4. Anemia -Per review of chart, reports of life-long anemia. -Recently required transfusion -Ongoing management per primary team. anemia work up 10/13/2024: -patient is doing well from a cardiac perspective. Offers no acute concerns. -HgB has continued to drop which is a significant concern. Patient denies any gerson bleeding and states "Rosanna been anemic since I was a kid". She states that she has been recommended to see hematology in the past, but did not think it would be of help. Encouraged patient to establish care with hematology for further evaluation. -Fortunately the patient has remained in normal sinus rhythm overnight, but given the fact that we know have documented Atrial fibrillation after patient has had two CVA's, the recommendation is to attempt anticoagulation; however, will need to watch HgB closely as the risk may outweigh the benefit. -Discussed Atrial fibrillation in detail and risk for a thromboembolic event. Also discussed bleeding risk and concern for a dropping HgB. -Case discussed with primary team. Patient is to remain off of Aspirin and Brilinta. We will continue Heparin gtt at this time with intention to transition to Eliquis 2.5mg PO BID if HgB stabilizes. -CHADSVASC score: 5. --Patient is to receive transfusion today, with repeat labs to follow. 10/14/2024: -Patient is doing well from a cardiac perspective. -She remains on heparin gtt at this time. did receive one unit of blood yesterday with HgB 8.1 (previously 7.0). Patient may be transitioned over to Eliquis 2.5mg PO BID when ok with primary team with ongoing close monitoirng of H/H. -continued management of anemia concerns per primary team with plan for patient to establish OP Hematology evaluation. -ASA and Brilinta have been discontinued and have advised to not restart from a cardiac perspective in lieu of the plan to start oral AC therapy with low dose Eliquis with newly dx A-fib. -Patient has remained in NSR overnight on telemetry with no recurrence of A-fib. -When patient is appropriate for discharge, recommend close cardiology follow up in 3-4 weeks. Patient will need to have OP non-fasting labs one week after discharge (CBC and BMP) Case has been discussed with Dr. Chamberlain. Further recommendations regarding plan of care as per his assessment. I spent a total of 30 minutes on the date of service in preparation, delivery, documentation of the care provided to the patient excluding any time spent in the performance of separately billed services. IFTIKHAR Haque [facility] Admission and Anticipated Discharge Date Admission Date: October 11, 2024 Supervising Physician Co-Signing Physician Notes Attending attestation: Case reviewed with the advanced practitioner. I have personally performed a history and physical examination on the patient. I have reviewed the advanced practitioner's documentation on the date of service referenced in note, and I agree with, and take responsibility for the plan of care. Subjective: Patient seen in cardiology follow-up. Noted transient shortness of breath last night without subjective palpitations. Feeling well today. Exam: General appearance: Pale, no acute distress Cardiovascular: Regular rhythm, no murmurs, no edema Data: Telemetry reveals sinus rhythm with rate in the range of 80-90 bpm and occasiona l PVCs EKG on presentation 10/11/2024 at 1655 revealed newly recognized atrial fibrillation with rapid ventricular response, 152 bpm. Patient subsequently converted to sinus rhythm overnight last night and remains in sinus rhythm with rates in the 80s to 90s. 08/01/24: MRI brain revealed small acute/subacute ischemic injury in the left thalamus prompting aspirin plus clopidogrel. 08/26/2024: MRI brain revealed new infarct of the left posterior limb of the internal capsule prompting transition to aspirin plus Brilinta. Echocardiogram performed 08/26/2024: Mild concentric left ventricular hypert rophy, LVEF in the range of 60-65%, mild aortic valve regurgitation, mild tricuspid regurgitation, PASP 44 mmHg Impression: 1. Anemia -Chronic anemia. Iron studies normal dating back to Aug, 2024 admission -Hemoglobin Aug, 2024 as low as 6.4 g/dL and received 2 units packed red blood cells during that admission -Hemoglobin 10/13/2024, down to 6.8, prompting transfusion of 1 unit of packed red blood cells 10/13/2024, hemoglobin 10/14/2024 8.1 g/dL -Anemia, complicating treatment of the patient's atrial fibrillation and stroke events 2.Newly diagnosed/newly recognized paroxysmal atrial fibrillation / Suspected embolic stroke episodes -Given recent MRI findings, atrial fibrillation certainly potential cause of her previous events. Mild carotid disease noted on previous CT angiogram in August. -Prior to hospital metoprolol succinate dose increased to 25 mg twice daily. -Continue atorvastatin 40 mg daily -If not for the anemia, would recommend aspirin 81 mg daily and Eliquis, but given anemia, stroke prophylaxis strategy is a difficult decision -If able to tolerate from anemia standpoint, will discontinue aspirin and Brilinta and we will transition her from low-dose unfractionated heparin infusion to Eliquis 2.5 mg twice daily. I think 2.5 mg twice daily would be a reasonable dose, she is 79 years old, and her weight is just barely above 60 kg. -Future considerations include referral for percutaneous left atrial appendage occlusion device/Watchman device as outpatient. Dr Dumont is rounding this weekend. Please contact with questions or concerns. I spent a total of 20 minutes coordinating, documenting, and providing care for this patient excluding time spent in the performance of separately billed services or time spent by another provider. Paul Chamberlain, Subjective 10/14/2024: Patient seen and examined in follow up today. Feeling fair. Patient received 1 unit of Leukocyte reduced RBC's yesterday. HgB had trended up to 8.3 and is now 8.1. Continues to deny any gerson bleeding. Denies any chest pain, pressure or palpitations. Patient has experienced an episode overnight in which she felt as though she could not "catch" her breath. Episode resolved with reassurance form nursing staff and no other intervention was required to alleviate symptoms. Labs, vitals, diagnostics, telemetry and documentation reviewed. Telemetry reviewed showing SR rates 80's-90's with occasional PVC and PAC's On heparin gtt at this time. Review of Systems Review of Systems: All systems reviewed & are unremarkable except as noted in HPI & below Physical Exam Constitutional: well developed and well nourished; no acute distress and not ill appearing Neck: normal visual inspection and trachea midline Respiratory: normal respiratory effort, lungs clear to auscultation Cardiovascular: Rate/Rhythm: regular rate and regular rhythm Vessels: dorsalis pedis pulses present; no JVD Skin: no rashes, warm and dry + pallor Psychiatric: A+Ox3, euthymic affect Results & Data Vital Signs (Past 12 Hours) Vital Signs Temp Pulse Pulse Resp BP Pulse Ox O2 Del Method 10/14/24 02:56 89 10/14/24 02:53 36.6 C 89 17 137/70 94 Room Air 10/14/24 02:04 88 10/13/24 23:16 36.9 C 88 16 122/80 96 Room Air Laboratory Results CBC 10/13/24 10/13/24 10/13/24 Range/Units 12:55 12:55 12:55 WBC (4.8-10.8) K/ul RBC (4.20-5.40) M/uL Hgb Cancelled 6.8 L* Hct Cancelled 20.0 L* Plt Count (130-400) K/uL 10/13/24 10/14/24 Range/Units 20:12 06:57 WBC 5.00 (4.8-10.8) K/ul RBC 2.77 L (4.20-5.40) M/uL Hgb 8.3 L 8.1 L Hct 25.0 L 24.1 L Plt Count 372 (130-400) K/uL Comprehensive Metabolic Panel 10/14/24 Range/Units 06:57 Sodium 141 (136-145) mmol/L Potassium 3.5 (3.5-5.1) mmol/L Chloride 108 H (98-107) mmol/L Carbon Dioxide 26 (21-32) mmol/L BUN 8 (6-23) mg/dl Creatinine 0.28 L (0.6-1.2) mg/dl Glucose 102 H (70-99(Fasting)) mg/dl Calcium 6.0 L (8.6-10.3) mg/dl Intake and Output 10/13/24 10/14/24 10/14/24 22:59 06:59 14:59 Intake Total 496.4 / 1711.134 371.467 / 1711.134 125.333 / 125.333 Output Total Balance 496.4 / 1709.134 369.467 / 1709.134 124.333 / 124.333 Intake: IV 186.4 / 961.134 171.467 / 961.134 125.333 / 125.333 Calcium Gluconate 1,000 mg In 60 / 60 60 ml @ 240 mls/hr IV ONE ONE Rx#:[id number] Heparin 63215 Unit/500 ml D5w 186.4 / 454.134 171.467 / 454.134 65.333 / 65.333 25,000 units In 500 ml @ 800 UNITS/HR 16 mls/hr IV .Q24H [facility] Rx#:[id number] Oral 200 / 440 Intake (Blood Product) Amt 310 / 310 Packed Cells, Leukoreduced 310 / 310 Unit [id number] Output: # Bowel Movements 2 / 2 Other: Other Intake Source Packed Cells, Leukoreduced 75 Unit [id number] # Unmeasured Voids 2 1 Weight 61.3 kg 61.5 kg Weight Measurement Method Built in [facility] PG Care Time/CCT Total # of Minutes Spent Total Time Spent with Patient: Total time spent is greater than 50% in coordination of care (as documented) at patient's floor/unit and/or counseling patient: Coding Level of Care Code 09819 SUB INP/OBS CARE 3/50MIN Diagnoses Atrial fibrillation with RVR I48.91 Hypokalemia E87.6 Hypomagnesemia E83.42 Anemia D64.9 Anemia type: unspecified type Time Spent (min) 50 Comment 30 minutes were spent by IFTIKHAR Loaiza, 20 minutes by Paul Chamberlain DO (4) Anemia Anemia type: unspecified type Qualified Code(s): D64.9 - Anemia, unspecified
[2024-10-14] MEDS: POTASSIUM CHLORIDE 10 MEQ TABCR PO ONE (09:56)
[2024-10-14] MEDS: MAGNESIUM CHLORIDE W/CALCIUM 64MG DELAYED REL TAB PO SCH (09:57)
[2024-10-14] MEDS: CALCIUM GLUCONATE 1,000 MG/60 ML BAG IV ONE (10:23)
--- NOTE | 2024-10-14 13:18 | Hospitalist Progress Note ---
Date of Service October 14, 2024 Assessment & Plan (1) Atrial fibrillation with RVR: (2) Hypokalemia: (3) Hypomagnesemia: (4) Hypophosphatemia: (5) Hypocalcemia: (6) Anemia: (7) Hypothyroidism: (8) GERD (gastroesophageal reflux disease): (9) Hyperlipidemia: Plan Patient is an 79 year old female with PMH significant for history of two recent strokes (July 2024, August 2024), Mnire's disease, hypothyroidism, GERD, hyperlipidemia who presented to the ED on 10/11/2024 with chest pain x3 days and is admitted for new onset A fib with RVR. New onset A fib with RVR Patient presented with pleuritic chest pain x3 days with associated SOB and fatigue Likely precipitated due to electrolyte abnormalities --CXR :No active disease --ECHO: EF 60 to 65%. Mild concentric LVH. Mild aortic, tricuspid regurgitation. Estimated systolic pulmonary pressure 44 mmHg --Normal TSH -- Continue metoprolol succinate 25 mg twice a day -- Continue IV heparin>> transition to Eliquis 2.5 mg twice a day -- Appreciate cardiology input --Monitor and replete electrolytes as needed Needs follow-up with cardiology on discharge in 3 to 4 weeks Hypokalemia, hypomagnesemia, hypophosphatemia, hypocalcemia Likely due to significant diarrhea recently Stool studies negative (PCR, C. difficile) Monitor and replete electrolytes as needed Imodium as needed Will give IV calcium today Vitamin D deficiency Started on vitamin D supplements Also on calcium supplements--adjust dose as needed Needs repeat vitamin D levels checked as outpatient Acute on chronic anemia Patient with reported lifelong history of chronic anemia Previous admission iron studies and vitamin B12 WNL Hemoglobin 8.1 today Received 2 units PRBC in our ED on 09/23/2024 for Hgb ~5 per patient S/P 1 unit PRBC Monitor CBC No acute bleeding issues Anemia workup:Normal Iron, B12, folic acid levels Haptoglobin pending Peripheral smear: Normochromic normocytic. 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 Continue nutritional supplements GERD Continue PPI Hyperlipidemia Continue statin Generalized anxiety Trial of BuSpar DVT Px: Eliquis Code Status: FULL CODE PCP: Italo Barboza ([facility]) Disposition: Expect to discharge home when stable PT OT prior to discharge Admission and Anticipated Discharge Date Admission Date: October 11, 2024 Subjective Patient is seen and examined at bedside Reports having loose BM today Admits to being anxious intermittently Denies any bleeding issues Discussed with cardiology today Denies any nausea, vomiting, abdominal pain, dyspnea, chest pain Review of Systems Review of Systems: All systems reviewed & are unremarkable except as noted in Subjective Physical Exam Physical Exam: Physical Exam: Vitals signs as noted above General Appearance:Moderately built and nourished, no apparent distress Head: normocephalic, Atraumatic Eyes: normal inspection, EOMI Neck: supple, Trachea midline Respiratory/Chest: Normal breath sounds, basal crackles, No accessory muscle use Cardiovascular: S1, S2, No murmur Abdomen/GI:Soft, Non tender, Bowel sounds present Extremities/Musculoskeletal:normal inspection, no edema Neurologic/Psych:AAOX3, grossly no focal neurological deficits Skin: normal color, warm Results & Data Results & Data Vital Signs (Past 12 Hours) Vital Signs Temp Pulse Pulse Resp BP Pulse Ox O2 Del Method 10/14/24 11:31 36.8 C 88 18 152/70 H 96 Room Air 10/14/24 08:00 89 10/14/24 08:00 36.6 C 87 18 146/77 H 96 Room Air 10/14/24 02:56 89 10/14/24 02:53 36.6 C 89 17 137/70 94 Room Air 10/14/24 02:04 88 Laboratory Results Short CBC 10/13/24 10/13/24 10/13/24 Range/Units 12:55 12:55 12:55 WBC (4.8-10.8) K/ul Hgb Cancelled 6.8 L* Hct Cancelled 20.0 L* Plt Count (130-400) K/uL 10/13/24 10/14/24 Range/Units 20:12 06:57 WBC 5.00 (4.8-10.8) K/ul Hgb 8.3 L 8.1 L Hct 25.0 L 24.1 L Plt Count 372 (130-400) K/uL BMP 10/14/24 06:57 Sodium 141 Potassium 3.5 Chloride 108 H Carbon Dioxide 26 BUN 8 Creatinine 0.28 L Glucose 102 H Calcium 6.0 L (6) Anemia Anemia type: unspecified type Qualified Code(s): D64.9 - Anemia, unspecified
[2024-10-14] MEDS: busPIRone 5 MG TAB PO SCH (14:04)
[2024-10-14] MEDS: MAGNESIUM SULFATE / D5W 1 GM/100 ML BAG IV ONE (15:41)
[2024-10-14] MEDS: NSS + 20MEQ KCL 20 MEQ/1,000 ML BAG IV ONE (17:25)
[2024-10-14 17:43] LABS: ANTI-Xa, UFH(UnfractionatedHep 0.31 IU/ml (0.3-0.7)
[2024-10-14] MEDS: [UNRECOGNIZED DRUG - REMARK] ONE (21:02)
[2024-10-14] MEDS: APIXABAN 2.5 MG TAB PO SCH (21:05)
[2024-10-15 06:28] LABS: Hematocrit (blood only) 23.4 % (37.0-47.0); Hemoglobin 7.9 g/dl (12.0-16.0); Mean Corpuscular Hemoglobin 29.6 pg (25.0-34.0); Mean Corpuscular Volume 87.6 fL (80.0-100.0); Platelet Count 409 K/uL (130-400); RDW Standard Deviation 57.3 fL (36.4-46.3); Red Blood Count 2.67 M/uL (4.20-5.40); White Blood Count 7.48 K/ul (4.8-10.8)
[2024-10-15 06:54] LABS: Anion Gap 5.0 (3-11); Blood Urea Nitrogen 5.0 mg/dl (6-23); Calcium 6.1 mg/dl (8.6-10.3); Carbon Dioxide 26.0 mmol/L (21-32); Chloride 110.0 mmol/L (98-107); Creatinine Clr Calc Pharmacy 122.3 ml/min; Glucose 104.0 mg/dl (70-99(Fasting)); Magnesium 1.8 mg/dl (1.7-2.4); Potassium 3.9 mmol/L (3.5-5.1); Sodium 141.0 mmol/L (136-145)
--- NOTE | 2024-10-15 08:31 | Cardiology Progress Note ---
Date of Service October 15, 2024 Assessment & Plan (1) PAF (paroxysmal atrial fibrillation): (2) HTN (hypertension): (3) Cough: (4) Anemia: Plan Paroxysmal atrial fibrillation. - New diagnosis this admission. - Asymptomatic - Metoprolol succinate dosing increased, without further paroxysmal atrial fibrillation. Continue metoprolol succinate as presently prescribed - Embolic stroke episodes suspected - [id number] Score 7 points. - Dual antiplatelet therapy discontinued this admission - Reduced dose apixaban (Eliquis) anticoagulation initiated this admission with reduced dosing prescribed given age of 79 and weight 60 kg. - Chronic anemia is concerning, requiring recurrent transfusions on chart review, with plans to see Hematology as an outpatient in [place] - Outpatient referral for Watchman implantation consideration discussed; patient eager to proceed - Outpatient Cardiology follow-up - Please contact with any cardiac questions or concerns Cough. Appears bronchitic. Chest x-ray requested. Further evaluation and treatment as per Hospitalist. Admission and Anticipated Discharge Date Admission Date: October 11, 2024 Supervising Physician Co-Signing Physician Notes I have personally performed a history and physical examination on the patient. I have reviewed the advance practitioner's documentation, and I agree with, and take responsibility for the plan of care. 79-year-old female with new diagnosis of atrial fibrillation. Elevated SOG3AP3- VASc score noted. Continue beta-cj therapy and reduced dose Eliquis. Outpatient referral to consider Watchman device implantation. Cardiology will sign off. Please call with additional concerns/questions. Guillermo Dumont DO, [facility] Subjective Patient seen and examined. Chart, medications, telemetry reviewed. Mucousy cough over the last couple days, without fevers or chills Chronically decreased appetite, loose bowel movements attributed to protein drinks No chest pain, palpitations, worsening shortness of breath, or lower extremity peripheral edema. Review of Systems Review of Systems: Complete review of systems is otherwise as stated above, negative, or noncontributory Physical Exam Physical Exam: General: NAD. HENT: Normocephalic. Atraumatic. Eyes: PER. Conjunctiva pink, sclera clear. Neck: No JVD. Heart: RRR. No murmur. Lungs: Upper anterior rhonchi that improved post cough. No wheeze. No Rales. Abdomen: +BS. Soft. Nontender. No masses or organomegaly. Extremities: No clubbing, cyanosis, or edema. Limited neurological examination is without focal deficits. Pulses: Posterior tibial=2/4. Results & Data Vital Signs (Past 12 Hours) Vital Signs Temp Pulse Pulse Resp BP Pulse Ox O2 Del Method 10/15/24 07:11 36.9 C 92 H 18 151/65 H 93 Room Air 10/15/24 02:50 36.8 C 86 18 132/72 92 Room Air 10/14/24 22:54 36.4 C L 91 H 18 138/75 93 Room Air 10/14/24 21:41 91 H Laboratory Results CBC 10/15/24 Range/Units 05:47 WBC 7.48 (4.8-10.8) K/ul RBC 2.67 L (4.20-5.40) M/uL Hgb 7.9 L (12.0-16.0) g/dl Hct 23.4 L (37.0-47.0) % Plt Count 409 H (130-400) K/uL Comprehensive Metabolic Panel 10/15/24 Range/Units 05:47 Sodium 141 (136-145) mmol/L Potassium 3.9 (3.5-5.1) mmol/L Chloride 110 H (98-107) mmol/L Carbon Dioxide 26 (21-32) mmol/L BUN 5 L (6-23) mg/dl Creatinine 0.30 L (0.6-1.2) mg/dl Glucose 104 H (70-99(Fasting)) mg/dl Calcium 6.1 L (8.6-10.3) mg/dl Intake and Output 10/14/24 10/15/24 10/15/24 22:59 06:59 14:59 Intake Total 409.834 / 688.175 7716 / 1000 Output Total 2 / 3 Balance 409.834 / 532.167 -2 / 932.836 2359 / 1000 Intake: IV 289.834 / 747.225 3081 / 1000 Heparin 78126 Unit/500 ml D5w 189.834 / 255.167 25,000 units In 500 ml @ 850 UNITS/HR 17 mls/hr IV .Q24H JORGE Rx#:[id number] Magnesium Sulfate / D5w 1 gm In 100 / 100 100 ml @ 50 mls/hr IV ONE ONE Rx#:[id number] Nss + 20Meq KCl 20 meq In 1,000 1000 / 1000 ml @ 75 mls/hr IV .[id number] ONE Rx#:[id number] Oral 120 / 120 Output: # Bowel Movements 2 / 3 Other: # Unmeasured Voids 2 1 Weight 61.2 kg Weight Measurement Method Built in [facility] Diagnostic Findings Hemoglobin 7.9 g/dL this morning Telemetry: Sinus rhythm in the 80s. PG Care Time/CCT Total # of Minutes Spent Total Time Spent with Patient: Total time spent is greater than 50% in coordination of care (as documented) at patient's floor/unit and/or counseling patient: Coding Level of Care Code 89309 SUB INP/OBS CARE 3/50MIN Diagnoses PAF (paroxysmal atrial fibrillation) I48.0 HTN (hypertension) I10 Cough R05.9 Anemia D64.9 Anemia type: unspecified type (4) Anemia Anemia type: unspecified type Qualified Code(s): D64.9 - Anemia, unspecified
--- NOTE | 2024-10-15 08:45 | XRay Report ---
EXAM: Radiograph of the Chest 1 View INDICATION: Cough TECHNIQUE: Frontal view of the chest. COMPARISON: 10/11/2024 FINDINGS: Lungs and pleural spaces: Pulmonary edema with increased vascular congestion. New small pleural effusions and basilar compressive atelectasis. No pneumothorax. Heart: Stable prominent cardiac shadow. Mediastinum: Normal contour. Bones/joints: No fracture, erosion or dislocation. Soft tissues: No abnormality noted. No radiopaque foreign body noted. Vasculature: Stable ectatic aorta. Upper abdomen: No abnormality noted. IMPRESSION: Interval development of CHF. A component of bilateral basilar mucous plugging and pneumonia not excluded but thought less likely. ACT 112: N/A Electronically signed by Anitra Hoover 10-15-2024 08:45 AM
[2024-10-15] MEDS: DOXYCYCLINE HYCLATE 100 MG CAP PO SCH (10:25)
[2024-10-15 11:33] LABS: Chlamydia pneumoniae PCR Not Detected (NotDetected); Coronavirus 229E PCR Not Detected (NotDetected); Coronavirus CoV-2 (COVID19)PCR Not Detected (NotDetected); Coronavirus HKU1 PCR Not Detected (NotDetected); Coronavirus NL63 PCR Not Detected (NotDetected); Coronavirus OC43PCR Not Detected (NotDetected); Human Metapneumovirus PCR Not Detected (NotDetected); Parainfluenza Virus 1 PCR Not Detected (NotDetected); Parainfluenza Virus 2 PCR Not Detected (NotDetected); Parainfluenza Virus 3 PCR Not Detected (NotDetected); Parainfluenza Virus 4 PCR Not Detected (NotDetected); Respiratory Syncytial VirusPCR Not Detected (NotDetected); Rhinovirus/Enterovirus PCR Not Detected (NotDetected)
--- NOTE | 2024-10-15 13:37 | Hospitalist Progress Note ---
Date of Service October 15, 2024 Assessment & Plan (1) Atrial fibrillation with RVR: (2) Hypokalemia: (3) Hypomagnesemia: (4) Hypophosphatemia: (5) Hypocalcemia: (6) Anemia: (7) Hypothyroidism: (8) GERD (gastroesophageal reflux disease): (9) Hyperlipidemia: Plan Patient is an 79 year old female with PMH significant for history of two recent strokes (July 2024, August 2024), Mnire's disease, hypothyroidism, GERD, hyperlipidemia who presented to the ED on 10/11/2024 with chest pain x3 days and is admitted for new onset A fib with RVR. New onset A fib with RVR Patient presented with pleuritic chest pain x3 days with associated SOB and fatigue Likely precipitated due to electrolyte abnormalities --CXR :No active disease --ECHO: EF 60 to 65%. Mild concentric LVH. Mild aortic, tricuspid regurgitation. Estimated systolic pulmonary pressure 44 mmHg --Normal TSH -- Continue metoprolol succinate 25 mg twice a day -- Continue IV heparin>> transition to Eliquis 2.5 mg twice a day -- Appreciate cardiology input --Monitor and replete electrolytes as needed Needs follow-up with cardiology on discharge in 3 to 4 weeks Consideration for watchman's implantation as outpatient Hypokalemia, hypomagnesemia, hypophosphatemia, hypocalcemia Likely due to significant diarrhea, very poor oral intake Stool studies negative (PCR, C. difficile) Monitor and replete electrolytes as needed Imodium as needed Dietitian consulted Encouraged to increase oral fluid/food intake Acute bronchitis/? laryngitis --CXR: No obvious pneumonia, ? mucous plugging --Bio fire negative --started on doxycycline --Mucinex, flutter --Saturating well on room air Vitamin D deficiency Started on vitamin D supplements Also on calcium supplements--adjust dose as needed Needs repeat vitamin D levels checked as outpatient Acute on chronic anemia Patient with reported lifelong history of chronic anemia Previous admission iron studies and vitamin B12 WNL Hemoglobin 7.9 today Received 2 units PRBC in our ED on 09/23/2024 for Hgb ~5 per patient S/P 1 unit PRBC Monitor CBC No acute bleeding issues Anemia workup:Normal Iron, B12, folic acid levels Haptoglobin pending Peripheral smear: Normochromic normocytic. 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 Continue nutritional supplements GERD Continue PPI Hyperlipidemia Continue statin Generalized anxiety Trial of BuSpar DVT Px: Eliquis Code Status: FULL CODE PCP: Itaol Barboza ([facility]) Disposition: PT OT recommends SNF Admission and Anticipated Discharge Date Admission Date: October 11, 2024 Subjective Patient is seen and examined at bedside States having cough associated with some hoarseness Reports that BuSpar is helping with anxiety Plans to increase oral fluid intake as recommended Denies any nausea, vomiting, abdominal pain, dyspnea, chest pain Review of Systems Review of Systems: All systems reviewed & are unremarkable except as noted in Subjective Physical Exam Physical Exam: Physical Exam: Vitals signs as noted above General Appearance:Moderately built and nourished, no apparent distress Head: normocephalic, Atraumatic Eyes: normal inspection, EOMI Neck: supple, Trachea midline Respiratory/Chest: Normal breath sounds, basal crackles, No accessory muscle use Cardiovascular: S1, S2, No murmur Abdomen/GI:Soft, Non tender, Bowel sounds present Extremities/Musculoskeletal:normal inspection, no edema Neurologic/Psych:AAOX3, grossly no focal neurological deficits Skin: normal color, warm Results & Data Results & Data Vital Signs (Past 12 Hours) Vital Signs Temp Pulse Pulse Resp BP Pulse Ox O2 Del Method 10/15/24 11:08 36.8 C 94 H 18 132/65 92 Room Air 10/15/24 09:15 168 H 10/15/24 08:37 Room Air 10/15/24 07:11 36.9 C 92 H 18 151/65 H 93 Room Air 10/15/24 07:00 88 10/15/24 02:50 36.8 C 86 18 132/72 92 Room Air Laboratory Results Short CBC 10/15/24 Range/Units 05:47 WBC 7.48 (4.8-10.8) K/ul Hgb 7.9 L (12.0-16.0) g/dl Hct 23.4 L (37.0-47.0) % Plt Count 409 H (130-400) K/uL BMP 10/15/24 05:47 Sodium 141 Potassium 3.9 Chloride 110 H Carbon Dioxide 26 BUN 5 L Creatinine 0.30 L Glucose 104 H Calcium 6.1 L (6) Anemia Anemia type: unspecified type Qualified Code(s): D64.9 - Anemia, unspecified
[2024-10-15] MEDS: CALCIUM CARBONATE 500 MG CHEWABLE TAB PO SCH (14:03)
[2024-10-15] MEDS: MAGNESIUM SULFATE / D5W 1 GM/100 ML BAG IV ONE (16:13)
[2024-10-15] MEDS: POTASSIUM CHLORIDE 10 MEQ TABCR PO ONE (16:13)
[2024-10-15] MEDS: MAGNESIUM CHLORIDE W/CALCIUM 64MG DELAYED REL TAB PO SCH (18:23)
[2024-10-15] MEDS: guaiFENesin 600 MG TABCR PO SCH (21:13)
[2024-10-16 06:41] LABS: Hematocrit (blood only) 23.8 % (37.0-47.0); Hemoglobin 7.6 g/dl (12.0-16.0)
--- NOTE | 2024-10-16 11:00 | Cardiology Progress Note ---
Date of Service October 16, 2024 Assessment & Plan (1) PAF (paroxysmal atrial fibrillation): (2) HTN (hypertension): (3) Cough: (4) Anemia: Plan Paroxysmal atrial fibrillation. - New diagnosis this admission. - Seemingly asymptomatic - Embolic stroke episodes suspected - [id number] Score 7 points. - Dual antiplatelet therapy discontinued - Reduced dose apixaban (Eliquis) anticoagulation initiated this admission with reduced dosing prescribed given age of 79 and weight 60 kg. - Chronic anemia is concerning, requiring recurrent transfusions on chart review, with plans to see Hematology as an outpatient in [place] - Outpatient referral for Watchman implantation consideration discussed; patient eager to proceed - Increase metoprolol succinate dosing further today (10/16/2024) given telemetry findings, 37.5 mg BID. Cough. Chest x-ray yesterday as interpreted by radiology revealed interval development of congestive heart failure a component of bilateral basilar mucous plugging and pneumonia not excluded but thought to be less likely. Patient reports improvement in cough today as compared to yesterday. Antibiotic therapy with doxycycline prescribed by Hospitalist. IV furosemide ordered along with oral potassium supplementation. Admission and Anticipated Discharge Date Admission Date: October 11, 2024 Supervising Physician Co-Signing Physician Notes I have personally performed a history and physical examination on the patient. I have reviewed the advance practitioner's documentation, and I agree with, and take responsibility for the plan of care. 79-year-old female with new diagnosis of atrial fibrillation. Elevated [id number]- VASc score noted. No recurrent atrial fibrillation on telemetry. Sinus rhythm with PACs and intermittent sinus tachycardia noted. Patient remains asymptomatic. Continue reduced dose Eliquis. Anemia/hemoglobin relatively stable. Outpatient referral to consider Watchman device implantation. Please call with additional concerns/questions. Guillermo Dumont DO, [facility] I spent a total of 25 minutes on the date of service in preparation, delivery, and documentation of the care provided to this patient, excluding any time spent in the performance of separately billed services. Subjective Patient seen and examined. Chart, medications, telemetry reviewed. Cough and congestion seem to be better today. No chest pain. No overt palpitations. Review of Systems Review of Systems: Complete review of systems is otherwise as stated above, negative, or noncontributory Physical Exam Physical Exam: General: NAD. HENT: Normocephalic. Atraumatic. Eyes: PER. Conjunctiva pink, sclera clear. Neck: No JVD. Heart: RRR. No murmur. Lungs: Scattered rhonchi. Right basilar rales. Abdomen: +BS. Soft. Nontender. No masses or organomegaly. Extremities: No clubbing, cyanosis, or significant edema. Limited neurological examination is without focal deficits. Pulses: Posterior tibial=2/4. Results & Data Vital Signs (Past 12 Hours) Vital Signs Temp Pulse Pulse Resp BP Pulse Ox O2 Del Method 10/16/24 07:11 Room Air 10/16/24 07:05 36.5 C 92 H 17 137/78 93 Room Air 10/16/24 07:00 86 10/16/24 03:02 36.2 C L 87 18 130/75 92 Room Air Laboratory Results CBC 10/16/24 Range/Units 05:53 Hgb 7.6 L (12.0-16.0) g/dl Hct 23.8 L (37.0-47.0) % Intake and Output 10/15/24 10/16/24 10/16/24 22:59 06:59 14:59 Intake Total 320 / 1640 100 / 1640 Output Total 620 / 622 1 / 622 Balance -300 / 1018 99 / 1018 -1 / -1 Intake: IV 100 / 1100 Magnesium Sulfate / D5w 1 gm In 100 / 100 100 ml @ 50 mls/hr IV ONE ONE Rx#:[id number] Oral 220 / 540 100 / 540 Output: Urine Amount (Catheter) 620 / 620 External 620 / 620 # Bowel Movements 1 / 2 Other: # Unmeasured Voids 1 04 06 Weight 61.3 kg Weight Measurement Method Built in [facility] Diagnostic Findings Telemetry: Sinus/sinus tachycardia. PAT lasting up to 25 seconds in duration noted. Currently sinus at 94 bpm. PG Care Time/CCT Total # of Minutes Spent Total Time Spent with Patient: Time spent evaluating patient, direct bedside care, interpretation of diagnostic studies, chart review, placing orders, discussion with other providers and/or family members, etc: 50 minutes Total time spent is greater than 50% in coordination of care (as documented) at patient's floor/unit and/or counseling patient: Coding Level of Care Code 14019 SUB INP/OBS CARE 3/50MIN Diagnoses PAF (paroxysmal atrial fibrillation) I48.0 HTN (hypertension) I10 Cough R05.9 Anemia D64.9 Anemia type: unspecified type (4) Anemia Anemia type: unspecified type Qualified Code(s): D64.9 - Anemia, unspecified
[2024-10-16 11:54] VITALS: RESP 18
[2024-10-16] MEDS: POTASSIUM CHLORIDE 10 MEQ TABCR PO ONE (12:12)
[2024-10-16] MEDS: FUROSEMIDE 40 MG/4 ML VIAL IV ONE (12:14)
[2024-10-16] MEDS: MAGNESIUM SULFATE / D5W 1 GM/100 ML BAG IV ONE (12:16)
--- NOTE | 2024-10-16 14:25 | Hospitalist Progress Note ---
Date of Service October 16, 2024 Assessment & Plan (1) Atrial fibrillation with RVR: (2) Hypokalemia: (3) Hypomagnesemia: (4) Hypophosphatemia: (5) Hypocalcemia: (6) Anemia: (7) Hypothyroidism: (8) GERD (gastroesophageal reflux disease): (9) Hyperlipidemia: Plan Patient is an 79 year old female with PMH significant for history of two recent strokes (July 2024, August 2024), Mnire's disease, hypothyroidism, GERD, hyperlipidemia who presented to the ED on 10/11/2024 with chest pain x3 days and is admitted for new onset A fib with RVR. New onset A fib with RVR Patient presented with pleuritic chest pain x3 days with associated SOB and fatigue Likely precipitated due to electrolyte abnormalities --CXR :No active disease --ECHO: EF 60 to 65%. Mild concentric LVH. Mild aortic, tricuspid regurgitation. Estimated systolic pulmonary pressure 44 mmHg --Normal TSH -- Continue metoprolol succinate>> increased to 37.5 mg twice daily -- Continue IV heparin>> transition to Eliquis 2.5 mg twice a day -- Appreciate cardiology input --Monitor and replete electrolytes as needed Needs follow-up with cardiology on discharge in 3 to 4 weeks Consideration for watchman's implantation as outpatient Cardiology following Hypokalemia, hypomagnesemia, hypophosphatemia, hypocalcemia Likely due to significant diarrhea, very poor oral intake Stool studies negative (PCR, C. difficile) Monitor and replete electrolytes as needed Imodium as needed Dietitian consulted Encouraged to increase oral fluid/food intake Appetite slowly improving Acute bronchitis/? laryngitis --CXR: No obvious pneumonia, ? mucous plugging --Bio fire negative --Elevated procalcitonin --Continue doxycycline --Mucinex, flutter --Saturating well on room air Slowly improving Vitamin D deficiency Started on vitamin D supplements Also on calcium supplements--adjust dose as needed Needs repeat vitamin D levels checked as outpatient Acute on chronic anemia Patient with reported lifelong history of chronic anemia Previous admission iron studies and vitamin B12 WNL Received 2 units PRBC in our ED on 09/23/2024 for Hgb ~5 per patient S/P 1 unit PRBC Monitor CBC No acute bleeding issues Anemia workup:Normal Iron, B12, folic acid levels Haptoglobin pending Peripheral smear: Normochromic normocytic. No dysplasia Advised to follow-up with hematology as outpatient Hemoglobin 7.6 today Recent stroke Two recent strokes in July and August 2024 CVA thought to be secondary to A-fib Given anemia, high risk for bleeding, will discontinue aspirin, Brilinta as recommended by cardiology Started on anticoagulation as above for A-fib May need to resume aspirin as outpatient if hemoglobin remains stable given carotid artery disease on prior imaging Hypothyroidism Continue levothyroxine Severe Malnutrition Reports poor appetite, weight loss Bridge Builder consulted Continue nutritional supplements GERD Continue PPI Hyperlipidemia Continue statin Generalized anxiety Trial of BuSpar Vertigo Continue meclizine DVT Px: Eliquis Code Status: FULL CODE PCP: Italo Barboza ([facility]) Disposition: PT OT recommends SNF Admission and Anticipated Discharge Date Admission Date: October 11, 2024 Subjective Patient is seen and examined at bedside Cough slightly better today Hoarseness improving Transiently had vertigo this morning States that she slept at home overnight Denies any nausea, vomiting, abdominal pain, dyspnea, chest pain Review of Systems Review of Systems: All systems reviewed & are unremarkable except as noted in Subjective Physical Exam Physical Exam: Physical Exam: Vitals signs as noted above General Appearance:Moderately built and nourished, no apparent distress Head: normocephalic, Atraumatic Eyes: normal inspection, EOMI Neck: supple, Trachea midline Respiratory/Chest: Normal breath sounds, scattered rhonchi, No accessory muscle use Cardiovascular: S1, S2, No murmur Abdomen/GI:Soft, Non tender, Bowel sounds present Extremities/Musculoskeletal:normal inspection, no edema Neurologic/Psych:AAOX3, grossly no focal neurological deficits Skin: normal color, warm Results & Data Results & Data Vital Signs (Past 12 Hours) Vital Signs Temp Pulse Pulse Resp BP Pulse Ox O2 Del Method 10/16/24 11:52 36.8 C 99 H 18 148/77 H 93 Room Air 10/16/24 07:11 Room Air 10/16/24 07:05 36.5 C 92 H 17 137/78 93 Room Air 10/16/24 07:00 86 10/16/24 03:02 36.2 C L 87 18 130/75 92 Room Air Laboratory Results Short CBC 10/16/24 Range/Units 05:53 Hgb 7.6 L (12.0-16.0) g/dl Hct 23.8 L (37.0-47.0) % (6) Anemia Anemia type: unspecified type Qualified Code(s): D64.9 - Anemia, unspecified
[2024-10-16] MEDS: METOPROLOL SUCC 25MG EXT REL TAB PO SCH (21:25)
[2024-10-17] MEDS: MECLIZINE 12.5 MG TAB PO STA (01:44)
[2024-10-17 07:41] LABS: Hematocrit (blood only) 24.6 % (37.0-47.0); Hemoglobin 8.0 g/dl (12.0-16.0)
[2024-10-17 08:00] LABS: Anion Gap 6.0 (3-11); Blood Urea Nitrogen 6.0 mg/dl (6-23); Calcium 7.1 mg/dl (8.6-10.3); Carbon Dioxide 27.0 mmol/L (21-32); Chloride 107.0 mmol/L (98-107); Creatinine Clr Calc Pharmacy 104.9 ml/min; Glucose 105.0 mg/dl (70-99(Fasting)); Magnesium 2.1 mg/dl (1.7-2.4); Potassium 4.4 mmol/L (3.5-5.1); Sodium 140.0 mmol/L (136-145)
--- NOTE | 2024-10-17 10:25 | Electrocardiogram Report ---
Test Reason : Blood Pressure : */* mmHG Vent. Rate : 106 BPM Atrial Rate : 106 BPM P-R Int : 184 ms QRS Dur : 80 ms QT Int : 346 ms P-R-T Axes : 56 -29 -2 degrees QTcB Int : 459 ms Sinus tachycardia Nonspecific ST and T wave abnormality Abnormal ECG When compared with ECG of 12-Oct-2024 17:25, Premature atrial complexes are no longer Present Confirmed by Kelechi Reno ([id number]) on 10/17/2024 10:25:28 AM Referred By: Edgardo Elliott Confirmed By: Kelechi Reno
[2024-10-17 11:10] VITALS: BP 117/74; TEMP 98.2; O2SAT 94
--- NOTE | 2024-10-17 11:48 | Hospitalist Progress Note ---
Date of Service October 17, 2024 Assessment & Plan (1) Atrial fibrillation with RVR: (2) Hypokalemia: (3) Hypomagnesemia: (4) Hypophosphatemia: (5) Hypocalcemia: (6) Anemia: (7) Hypothyroidism: (8) GERD (gastroesophageal reflux disease): (9) Hyperlipidemia: Plan Patient is an 79 year old female with PMH significant for history of two recent strokes (July 2024, August 2024), Mnire's disease, hypothyroidism, GERD, hyperlipidemia who presented to the ED on 10/11/2024 with chest pain x3 days and is admitted for new onset A fib with RVR. New onset A fib with RVR Patient presented with pleuritic chest pain x3 days with associated SOB and fatigue Likely precipitated due to electrolyte abnormalities --CXR :No active disease --ECHO: EF 60 to 65%. Mild concentric LVH. Mild aortic, tricuspid regurgitation. Estimated systolic pulmonary pressure 44 mmHg --Normal TSH -- Continue metoprolol succinate>> increased to 37.5 mg twice daily -- Continue IV heparin>> transition to Eliquis 2.5 mg twice a day -- Appreciate cardiology input --Monitor and replete electrolytes as needed Needs follow-up with cardiology on discharge in 3 to 4 weeks Consideration for watchman's implantation as outpatient Plan to discharge to SNF today Hypokalemia, hypomagnesemia, hypophosphatemia, hypocalcemia Likely due to significant diarrhea, very poor oral intake Stool studies negative (PCR, C. difficile) Monitor and replete electrolytes as needed Imodium as needed Dietitian consulted Encouraged to increase oral fluid/food intake Appetite slowly improving Needs repeat blood work as outpatient Acute bronchitis/? laryngitis --CXR: No obvious pneumonia, ? mucous plugging --Bio fire negative --Elevated procalcitonin --Continue doxycycline --Mucinex, flutter --Saturating well on room air Clinically improved with current management Vitamin D deficiency Started on vitamin D supplements Also on calcium supplements--adjust dose as needed Needs repeat vitamin D levels checked as outpatient Acute on chronic anemia Patient with reported lifelong history of chronic anemia Previous admission iron studies and vitamin B12 WNL Received 2 units PRBC in our ED on 09/23/2024 for Hgb ~5 per patient S/P 1 unit PRBC Monitor CBC No acute bleeding issues Anemia workup:Normal Iron, B12, folic acid levels Haptoglobin pending Peripheral smear: Normochromic normocytic. 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 Continue nutritional supplements GERD Continue PPI Hyperlipidemia Continue statin Generalized anxiety Trial of BuSpar Vertigo Continue meclizine DVT Px: Eliquis Code Status: FULL CODE PCP: Italo Barboza ([facility]) Disposition: SNF today Admission and Anticipated Discharge Date Admission Date: October 11, 2024 Subjective Patient is seen and examined at bedside Doing a lot better today Discussed with cardiology today No significant vertigo symptoms today Hoarseness, cough much improved Denies any nausea, vomiting, abdominal pain, dyspnea, chest pain Plan to discharge to SNF today Review of Systems Review of Systems: All systems reviewed & are unremarkable except as noted in Subjective Physical Exam Physical Exam: Physical Exam: Vitals signs as noted above General Appearance:Moderately built and nourished, no apparent distress Head: normocephalic, Atraumatic Eyes: normal inspection, EOMI Neck: supple, Trachea midline Respiratory/Chest: Normal breath sounds, scattered rhonchi, No accessory muscle use Cardiovascular: S1, S2, No murmur Abdomen/GI:Soft, Non tender, Bowel sounds present Extremities/Musculoskeletal:normal inspection, no edema Neurologic/Psych:AAOX3, grossly no focal neurological deficits Skin: normal color, warm Results & Data Results & Data Vital Signs (Past 12 Hours) Vital Signs Temp Pulse Pulse Resp BP Pulse Ox O2 Del Method 10/17/24 11:07 36.8 C 98 H 18 117/74 94 Room Air 10/17/24 07:30 85 10/17/24 07:16 37.0 C 89 18 122/67 91 Room Air 10/17/24 04:01 37.2 C 86 18 121/65 93 Room Air Laboratory Results Short CBC 10/17/24 Range/Units 06:54 Hgb 8.0 L (12.0-16.0) g/dl Hct 24.6 L (37.0-47.0) % BMP 10/17/24 06:54 Sodium 140 Potassium 4.4 Chloride 107 Carbon Dioxide 27 BUN 6 Creatinine 0.35 L Glucose 105 H Calcium 7.1 L (6) Anemia Anemia type: unspecified type Qualified Code(s): D64.9 - Anemia, unspecified
--- NOTE | 2024-10-17 12:02 | Discharge Summary ---
Date of Service October 17, 2024 Admission HPI Per Admitting Provider 79 year old female with PMH significant for history of two recent strokes (July 2024, August 2024), Mnire's disease, hypothyroidism, GERD, hyperlipidemia who presented to the ED on 10/11/2024 with chest pain x3 days. She reports she had 16 episodes of yellow diarrhea on October 07. She was given immodium which stopped her diarrhea and she hasn't had a bowel movement since. The following day on October 08 she developed midsternal chest pressure and pleuritic chest pain with associated SOB and fatigue. She denies radiation of her chest pain anywhere. She also reports intermittent palpitations that are very infrequent. Her current chest pain is 4/10. She notes she has been having poor PO intake since her diarrhea on October 07. She feels very wiped out. Denies fevers, chills, cough, headaches, dizziness, lightheadedness, abdominal pain, N/V/D, dysuria. Denies any falls. Ambulates with a walker. Admission Exam Per Admitting Provider General/Psych: WD/WN, ill appearing, pale, sitting up in bed, NAD, conversing easily, euthymic affect Head: normocephalic, atraumatic Eyes: normal inspection, PERRL, conjunctivae pink, anicteric sclerae ENT: external ear and nose normal, oropharynx normal Neck: normal visual inspection, trachea midline, Respiratory: normal respiratory effort, lungs clear to auscultation, no wheeze/rales/rhonchi, no accessory muscle use Cardiovascular: irregular and tachycardic rate and rhythm, no murmur/rub/gallop, no JVD Extremities: no cyanosis or clubbing, normal peripheral pulses, no BLE edema Abdomen/GI: normal bowel sounds, soft, nontender, no hepatosplenomegaly Neurologic/MSK: A+Ox3, motor strength 5/5, moves all extremities Skin: no rashes, normal color, warm and dry Principal Diagnosis Atrial fibrillation with rapid ventricular response Electrolyte abnormalities Acute bronchitis Vitamin D deficiency Chronic anemia Severe malnutrition Discharge Data Allergies Allergy/AdvReac Type Severity Reaction Status Date / Time aspirin AdvReac Mild per pt she Verified 10/11/24 18:35 gets "really bad heartburn and indigestion" Consultations 10/11/24 18:57 ED Decision to Admit Stat 10/11/24 21:19 Consult Cardiology Routine Procedures Performed Laboratory Results WBC 7.48 K/ul (4.8-10.8) 10/15/24 05:47 RBC 2.67 M/uL (4.20-5.40) L 10/15/24 05:47 Hgb 8.0 g/dl (12.0-16.0) L 10/17/24 06:54 Hct 24.6 % (37.0-47.0) L 10/17/24 06:54 MCV 87.6 fL (80.0-100.0) 10/15/24 05:47 MCH 29.6 pg (25.0-34.0) 10/15/24 05:47 MCHC 33.8 g/dL (32.0-36.0) 10/15/24 05:47 RDW Std Deviation 57.3 fL (36.4-46.3) H 10/15/24 05:47 RDW Coeff of Romelia 17.9 % (11.5-14.5) H 10/15/24 05:47 Plt Count 409 K/uL (130-400) H 10/15/24 05:47 MPV 10.6 fL (9.4-12.4) 10/15/24 05:47 Immature Gran % (Auto) 1.0 % 10/11/24 17:44 Neut % (Auto) 90.5 % 10/11/24 17:44 Lymph % (Auto) 4.2 % 10/11/24 17:44 Adams % (Auto) 3.7 % 10/11/24 17:44 Eos % (Auto) 0.1 % 10/11/24 17:44 Baso % (Auto) 0.5 % 10/11/24 17:44 Neut # (Auto) 7.48 K/uL (1.40-6.50) H 10/11/24 17:44 Lymph # (Auto) 0.35 K/uL (1.20-3.40) L 10/11/24 17:44 Adams # (Auto) 0.31 K/uL (0.11-0.59) 10/11/24 17:44 Eos # (Auto) 0.01 K/uL (0.00-0.50) 10/11/24 17:44 Baso # (Auto) 0.04 K/uL (0.00-0.20) 10/11/24 17:44 Immature Gran # (Auto) 0.08 K/uL (0.01-0.20) 10/11/24 17:44 Absolute Nucleated RBC 0.02 K/uL (0.00-0.12) 10/15/24 05:47 Nucleated RBC % (auto) 0.3 % 10/15/24 05:47 Neutrophils % (Manual) Cancelled 10/11/24 17:10 Band Neutrophils % Cancelled 10/11/24 17:10 Lymphocytes % (Manual) Cancelled 10/11/24 17:10 Prolymphocyte % Cancelled 10/11/24 17:10 Reactive Lymphs % (Man) Cancelled 10/11/24 17:10 Monocytes % (Manual) Cancelled 10/11/24 17:10 Eosinophils % (Manual) Cancelled 10/11/24 17:10 Basophils % (Manual) Cancelled 10/11/24 17:10 Metamyelocytes % (Man) Cancelled 10/11/24 17:10 Myelocytes % (Man) Cancelled 10/11/24 17:10 Promyelocytes % (Man) Cancelled 10/11/24 17:10 Blast Cells % (Manual) Cancelled 10/11/24 17:10 Plasma Cell % (Manual) Cancelled 10/11/24 17:10 Other Cells % Cancelled 10/11/24 17:10 Nucleated RBC % Cancelled 10/11/24 17:10 Neutrophils # (Manual) Cancelled 10/11/24 17:10 Band Neutrophils # Cancelled 10/11/24 17:10 Total Absolute Neuts Cancelled 10/11/24 17:10 Lymphocytes # (Manual) Cancelled 10/11/24 17:10 Prolymphocyte # Cancelled 10/11/24 17:10 Reactive Lymphs # Cancelled 10/11/24 17:10 Total Abs Lymphocytes Cancelled 10/11/24 17:10 Monocytes # (Manual) Cancelled 10/11/24 17:10 Eosinophils # (Manual) Cancelled 10/11/24 17:10 Basophils # (Manual) Cancelled 10/11/24 17:10 Metamyelocytes # (Man) Cancelled 10/11/24 17:10 Myelocytes # (Manual) Cancelled 10/11/24 17:10 Promyelocytes # (Man) Cancelled 10/11/24 17:10 Blast Cells # (Man) Cancelled 10/11/24 17:10 Plasma Cell # (Manual) Cancelled 10/11/24 17:10 Other Cells # Cancelled 10/11/24 17:10 Nucleated RBCs # (Man) Cancelled 10/11/24 17:10 Hypersegmented Neuts Cancelled 10/11/24 17:10 Hyposegmented Neuts Cancelled 10/11/24 17:10 Hypogranular Neuts Cancelled 10/11/24 17:10 Large Granular Lymphs Cancelled 10/11/24 17:10 # Lrg Granular Lymphs Cancelled 10/11/24 17:10 Hairy Cells Cancelled 10/11/24 17:10 Smudge Cells Cancelled 10/11/24 17:10 Toxic Granulation 1+ 10/11/24 17:44 Toxic Vacuolation 1+ 10/11/24 17:44 Dohle Bodies Cancelled 10/11/24 17:10 Leonard Rods Cancelled 10/11/24 17:10 Platelet Estimate Cancelled 10/11/24 17:10 Hypogranular Platelets Cancelled 10/11/24 17:10 Giant Platelets Cancelled 10/11/24 17:10 Platelet Satelliting Cancelled 10/11/24 17:10 RBC Morphology Cancelled 10/11/24 17:10 Polychromasia Cancelled 10/11/24 17:10 Hypochromasia Cancelled 10/11/24 17:10 Poikilocytosis Present 10/11/24 17:44 Basophilic Stippling Cancelled 10/11/24 17:10 Anisocytosis Cancelled 10/11/24 17:10 Microcytosis Cancelled 10/11/24 17:10 Macrocytosis Cancelled 10/11/24 17:10 Spherocytes Cancelled 10/11/24 17:10 Pappenheimer Bodies Cancelled 10/11/24 17:10 Sickle Cells Cancelled 10/11/24 17:10 Target Cells Cancelled 10/11/24 17:10 Tear Drop Cells 1+ 10/11/24 17:44 Ovalocytes 1+ 10/11/24 17:44 Stomatocytes Cancelled 10/11/24 17:10 [place] Bodies Cancelled 10/11/24 17:10 Echinocytes Cancelled 10/11/24 17:10 Acanthocytes (Spur) 1+ 10/11/24 17:44 Rouleaux Cancelled 10/11/24 17:10 RBC Agglutinates Cancelled 10/11/24 17:10 Schistocytes Cancelled 10/11/24 17:10 Peripher Smr Path Cons 10/13/24 12:55 Sezary Cell Cancelled 10/11/24 17:10 Haptoglobin 158 mg/dL (43-212) 10/15/24 05:47 PT 13.4 Seconds (9.0-12.0) H 10/11/24 17:10 INR 1.3 (0.9-1.1) H 10/11/24 17:10 APTT 25 Seconds (21-31) 10/11/24 17:10 PTT Ratio 0.9 10/11/24 17:10 Heparin Anti-Xa, Unfract 0.31 IU/ml (0.3-0.7) 10/14/24 16:52 Sodium 140 mmol/L (136-145) 10/17/24 06:54 Potassium 4.4 mmol/L (3.5-5.1) 10/17/24 06:54 Chloride 107 mmol/L (98-107) 10/17/24 06:54 Carbon Dioxide 27 mmol/L (21-32) 10/17/24 06:54 Anion Gap 6 (3-11) 10/17/24 06:54 BUN 6 mg/dl (6-23) 10/17/24 06:54 Creatinine 0.35 mg/dl (0.6-1.2) L 10/17/24 06:54 Est Cr Clr Drug Dosing 104.9 ml/min 10/17/24 06:54 eGFR 103.26 10/17/24 06:54 BUN/Creatinine Ratio 17.1 (10-20) 10/17/24 06:54 Glucose 105 mg/dl (70-99(Fasting)) H 10/17/24 06:54 Lactate 1.8 mmol/L (0.4-2.0) 10/11/24 17:10 Calcium 7.1 mg/dl (8.6-10.3) L 10/17/24 06:54 Phosphorus 2.2 mg/dl (2.5-4.9) L 10/17/24 06:54 Magnesium 2.1 mg/dl (1.7-2.4) 10/17/24 06:54 Iron 99 mcg/dl (35-150) 10/13/24 12:55 Transferrin < 95 mg/dl (200-360) L 10/13/24 12:55 Ferritin 3285.0 ng/ml (8-388) H 10/13/24 12:55 Total Bilirubin 2.8 mg/dl (0.2-1.0) H 10/11/24 17:10 AST 14 U/L (13-39) 10/11/24 17:10 ALT 9 U/L (7-52) 10/11/24 17:10 Alkaline Phosphatase 75 U/L (34-104) 10/11/24 17:10 Troponin I High Sens 9.6 pg/ml (0-14) 10/11/24 17:10 Total Protein 6.1 gm/dl (6.0-8.3) 10/11/24 17:10 Albumin 3.6 gm/dl (3.4-5.0) 10/11/24 17:10 Globulin 2.5 gm/dl (2.5-4.0) 10/11/24 17:10 Albumin/Globulin Ratio 1.4 (0.9-2) 10/11/24 17:10 Vitamin B12 > 1500 pg/ml (180-914) H 10/13/24 12:55 25-OH Vitamin D Total < 7.0 ng/ml (30-100) L 10/13/24 05:55 Folate 5.50 ng/ml (>5.38) 10/13/24 12:55 Procalcitonin 2.26 ng/ml (0-0.5) H 10/16/24 05:53 TSH 1.449 uIu/ml (0.300-4.500) 10/11/24 17:10 PTH Intact 148.9 pg/ml (12.0-88.0) H 10/13/24 05:55 Urine Color Yellow 10/11/24 22:00 Urine Appearance Clear (Clear) 10/11/24 22:00 Urine pH 6.5 (4.5-7.5) 10/11/24 22:00 Ur Specific [place] 1.014 (1.000-1.030) 10/11/24 22:00 Urine Protein Trace (Negative) H 10/11/24 22:00 Urine Glucose (UA) Negative (Negative) 10/11/24 22:00 Urine Ketones 1+ (Negative) H 10/11/24 22:00 Urine Blood Trace (Negative) H 10/11/24 22:00 Urine Nitrite Negative (Negative) 10/11/24 22:00 Urine Bilirubin Negative (Negative) 10/11/24 22:00 Urine Urobilinogen Negative (Negative) 10/11/24 22:00 Ur Leukocyte Esterase Negative (Negative) 10/11/24 22:00 Urine WBC (Auto) 0-5 /hpf (0-5) 10/11/24 22:00 Urine RBC (Auto) 6-10 /hpf (0-2) H 10/11/24 22:00 U Hyaline Cast (Auto) 0-2 /lpf (0-2) 10/11/24 22:00 U Epithel Cells (Auto) 0-2 /hpf (0-2) 10/11/24 22:00 Urine Bacteria (Auto) None Seen (None Seen) 10/11/24 22:00 Urine Comment 10/11/24 22:00 POC Stool Occult Blood Negative (Negative) 10/11/24 19:44 Stl C. cayetanensis PCR Not Detected (NotDetected) 10/12/24 08:40 Stool Rotavirus A PCR Not Detected (NotDetected) 10/12/24 08:40 Stl Adenov F 40/41 PCR Not Detected (NotDetected) 10/12/24 08:40 Stool Astrovirus (PCR) Not Detected (NotDetected) 10/12/24 08:40 Stool Campylobacter PCR Not Detected (NotDetected) 10/12/24 08:40 Stl C. diff Tox B Gene Negative Cdiff Gene (Neg) 10/12/24 Unknown Stl C. diff [id number]-[id number] NEGATIVE 10/12/24 Unknown Stool Cryptosporidium PCR Not Detected (NotDetected) 10/12/24 08:40 Stl E.coli Shiga Tox PCR Not Detected (NotDetected) 10/12/24 08:40 Stl Enterotoxigenic E PCR Not Detected (NotDetected) 10/12/24 08:40 Stool EPEC (PCR) Not Detected (NotDetected) 10/12/24 08:40 Stool EAEC (PCR) Not Detected (NotDetected) 10/12/24 08:40 Stl E. histolytica PCR Not Detected (NotDetected) 10/12/24 08:40 Stool Giardia Lamblia PCR Not Detected (NotDetected) 10/12/24 08:40 Stool Salmonella PCR Not Detected (NotDetected) 10/12/24 08:40 Stool Sapovirus (PCR) Not Detected (NotDetected) 10/12/24 08:40 Stl P. shigelloides PCR Not Detected (NotDetected) 10/12/24 08:40 Stl Shigella/EIEC PCR Not Detected (NotDetected) 10/12/24 08:40 St Y.enterocolitica PCR Not Detected (NotDetected) 10/12/24 08:40 Stool Vibrio (PCR) Not Detected (NotDetected) 10/12/24 08:40 Stl Vibrio cholerae PCR Not Detected (NotDetected) 10/12/24 08:40 Stl Norovirus GI/GII PCR Not Detected (NotDetected) 10/12/24 08:40 Adenovirus (PCR) Not Detected (NotDetected) 10/15/24 10:30 B. pertussis DNA (PCR) Not Detected (NotDetected) 10/15/24 10:30 B.parapertussis DNA PCR Not Detected (NotDetected) 10/15/24 10:30 C. pneumoniae DNA (PCR) Not Detected (NotDetected) 10/15/24 10:30 Coronavirus OC43 (PCR) Not Detected (NotDetected) 10/15/24 10:30 Coronavirus HKU1 (PCR) Not Detected (NotDetected) 10/15/24 10:30 Coronavirus 229E (PCR) Not Detected (NotDetected) 10/15/24 10:30 SARS-CoV-2 (PCR) Not Detected (NotDetected) 10/15/24 10:30 Coronavirus NL63 (PCR) Not Detected (NotDetected) 10/15/24 10:30 Human Metapneumovir PCR Not Detected (NotDetected) 10/15/24 10:30 Influenza Type A (PCR) Not Detected (NotDetected) 10/15/24 10:30 Influenza Type B (PCR) Not Detected (NotDetected) 10/15/24 10:30 M. pneumoniae (PCR) Not Detected (NotDetected) 10/15/24 10:30 Parainfluenza 1 (PCR) Not Detected (NotDetected) 10/15/24 10:30 Parainfluenza 2 (PCR) Not Detected (NotDetected) 10/15/24 10:30 Parainfluenza 3 (PCR) Not Detected (NotDetected) 10/15/24 10:30 Parainfluenza 4 (PCR) Not Detected (NotDetected) 10/15/24 10:30 RSV (PCR) Not Detected (NotDetected) 10/15/24 10:30 Entero/Rhino (PCR) Not Detected (NotDetected) 10/15/24 10:30 Blood Parasites ID Cancelled 10/11/24 17:10 Blood Type A Positive 10/11/24 17:30 Antibody Screen NEGATIVE 10/11/24 17:30 Crossmatch See Detail 10/11/24 17:30 Impressions Chest X-Ray 10/15/24 08:24 EXAM: Radiograph of the Chest 1 View INDICATION: Cough TECHNIQUE: Frontal view of the chest. COMPARISON: 10/11/2024 FINDINGS: Lungs and pleural spaces: Pulmonary edema with increased vascular congestion. New small pleural effusions and basilar compressive atelectasis. No pneumothorax. Heart: Stable prominent cardiac shadow. Mediastinum: Normal contour. Bones/joints: No fracture, erosion or dislocation. Soft tissues: No abnormality noted. No radiopaque foreign body noted. Vasculature: Stable ectatic aorta. Upper abdomen: No abnormality noted. IMPRESSION: Interval development of CHF. A component of bilateral basilar mucous plugging and pneumonia not excluded but thought less likely. ACT 112: N/A Electronically signed by Anitra Hoover 10-15-2024 08:45 AM Hospital Course (1) Atrial fibrillation with RVR: (2) Hypokalemia: (3) Hypomagnesemia: (4) Hypophosphatemia: (5) Hypocalcemia: (6) Anemia: (7) Hypothyroidism: (8) GERD (gastroesophageal reflux disease): (9) Hyperlipidemia: Plan Patient is an 79 year old female with PMH significant for history of two recent strokes (July 2024, August 2024), Mnire's disease, hypothyroidism, GERD, hyperlipidemia who presented to the ED on 10/11/2024 with chest pain x3 days and is admitted for new onset A fib with RVR. New onset A fib with RVR Patient presented with pleuritic chest pain x3 days with associated SOB and fatigue Likely precipitated due to electrolyte abnormalities --CXR :No active disease --ECHO: EF 60 to 65%. Mild concentric LVH. Mild aortic, tricuspid regurgitation. Estimated systolic pulmonary pressure 44 mmHg --Normal TSH -- Continue metoprolol succinate>> increased to 37.5 mg twice daily -- Continue IV heparin>> transition to Eliquis 2.5 mg twice a day -- Appreciate cardiology input --Monitor and replete electrolytes as needed Needs follow-up with cardiology on discharge in 3 to 4 weeks Consideration for watchman's implantation as outpatient Plan to discharge to SNF today Hypokalemia, hypomagnesemia, hypophosphatemia, hypocalcemia Likely due to significant diarrhea, very poor oral intake Stool studies negative (PCR, C. difficile) Monitor and replete electrolytes as needed Imodium as needed Dietitian consulted Encouraged to increase oral fluid/food intake Appetite slowly improving Needs repeat blood work as outpatient Acute bronchitis/? laryngitis --CXR: No obvious pneumonia, ? mucous plugging --Bio fire negative --Elevated procalcitonin --Continue doxycycline --Mucinex, flutter --Saturating well on room air Clinically improved with current management Vitamin D deficiency Started on vitamin D supplements Also on calcium supplements--adjust dose as needed Needs repeat vitamin D levels checked as outpatient Acute on chronic anemia Patient with reported lifelong history of chronic anemia Previous admission iron studies and vitamin B12 WNL Received 2 units PRBC in our ED on 09/23/2024 for Hgb ~5 per patient S/P 1 unit PRBC Monitor CBC No acute bleeding issues Anemia workup:Normal Iron, B12, folic acid levels Haptoglobin pending Peripheral smear: Normochromic normocytic. No dysplasia Advised to follow-up with hematology as outpatient Hemoglobin 8.0 today Recent stroke Two recent strokes in July and August 2024 CVA thought to be secondary to A-fib Given anemia, high risk for bleeding, will discontinue aspirin, Brilinta as recommended by cardiology Started on anticoagulation as above for A-fib May need to resume aspirin as outpatient if hemoglobin remains stable given carotid artery disease on prior imaging Hypothyroidism Continue levothyroxine Severe Malnutrition Reports poor appetite, weight loss Dental Ceramist Helper consulted Continue nutritional supplements GERD Continue PPI Hyperlipidemia Continue statin Generalized anxiety Trial of BuSpar Vertigo Continue meclizine DVT Px: Eliquis Code Status: FULL CODE PCP: Italo Barboza ([facility]) Disposition: SNF today Total Time Total Time Spent Total Time Spent (In Minutes): 48 minutes Discharge Plan Discharge Items Patient Disposition: Transfer Group Home Fac Reason For Visit: A FIB Discharge Diagnosis: Atrial fibrillation with rapid ventricular response Electrolyte abnormalities Acute bronchitis Vitamin D deficiency Chronic anemia Severe malnutrition Condition on Discharge: Fair Activity: Per Instructions section Exercise/Sports: Gradually increase as tolerated Non-emergency contact: Primary Care Provider, Specialist and Dsp Engineer Call non-emergency contact if: you have any medication questions, your symptoms worsen, your pain is concerning for you and you have a fever Follow-up/Referrals: Italo Barboza [Primary Care Provider] - Diet: Regular Addtl Attending Provider Instructions: Follow-up with your primary care physician in 1 week Follow-up with your issuing operator Dr. Dumont/ in 3-4 weeks Follow-up with your actuarial intern for further work up/management of anemia as recommend -- Complete the antibiotic course doxycycline as prescribed for bronchitis --Get blood work (basic metabolic panel, phosphorus, magnesium level) in 1 week and follow-up with your primary care physician for further recommendations --Get blood work(vitamin D levels) in 6 weeks as recommended -- Your aspirin, Brilinta were discontinued and started on Eliquis as you are thought to have stroke secondary to atrial fibrillation. Discuss with your neurologist, issuing operator as outpatient for further recommendations. Seek immediate medical attention if your symptoms reoccur or worsen Please review medication list provided on discharge for any medication changes as instructed. Please call if you have any questions or problems. You can reach a [facility] hospitalist on duty at [facility] 24 hours a day by calling [phone] Pending Studies at Discharge: No Stand-Alone Forms: My [facility] [employer] Information Digital, Smoking Cessation Skilled Items Patient informed of condition?: Yes DNR: No Discharge Level of Care: Skilled Communicable Disease: No Discharge Prognosis: Stable Lines: None Urinary Catheter: No Medications and DC Order Prescriptions: New doxycycline hyclate 100 mg Capsule 100 mg PO BID Qty: 8 0RF Eliquis 2.5 mg Tablet 2.5 mg PO BID Qty: 60 1RF buspirone 5 mg Tablet 5 mg PO TID Qty: 90 0RF metoprolol succinate 25 mg Tablet Extended Release 24 Hr 37.5 mg PO BID Qty: 90 1RF magnesium chloride [Mag 64] 64 mg Tablet,Delayed Release (Dr/Ec) 64 mg PO BID@0700,1900 Qty: 30 0RF Phospha 250 Neutral 250 mg Tablet 1 tab PO QID 7 Days Qty: 28 0RF calcium carbonate [Tums] 200 mg calcium (500 mg) Tablet,Chewable 500 mg PO BID Qty: 14 0RF ergocalciferol (vitamin D2) 1,250 mcg (50,000 unit) Capsule 1,250 mcg PO Q7D Qty: 7 0RF Continued bisacodyl 10 mg suppository 10 mg [place] DAILY PRN (Reason: Constipation) levothyroxine 100 mcg tablet 100 mcg PO DAILYBB atorvastatin 40 mg Tablet 40 mg PO QAM Qty: 0 0RF pantoprazole 40 mg tablet,delayed release (DR/EC) 40 mg PO BID Qty: 60 0RF acetaminophen [Tylenol] 325 mg Tablet 650 mg PO Q4H MDD 3 GRAMS APAP/24 HOURS PRN (Reason: PAIN/FEVER) loperamide 2 mg Tablet 2 mg PO DIRECTED MDD 16 MG/24 HOURS PRN (Reason: Diarrhea) Rx Instructions: GIVE 2 TABS AFTER 1ST LOOSE STOOL, THEN 1 TAB AFTER EACH LOOSE STOOL, MAX 16 MG/24 HOURS cyanocobalamin (vitamin B-12) [Vitamin B-12] 1,000 mcg Tablet 1,000 mcg PO DAILY meclizine 12.5 mg tablet 12.5 mg PO TID Changed polyethylene glycol 3350 [Miralax] 17 gram/dose powder 17 g PO DAILY PRN (Reason: Constipation) Qty: 0 0RF Held ticagrelor [Brilinta] 90 mg tablet 90 mg PO BID Hold Instructions: Until further recommendations from your issuing operator/primary care physician aspirin 81 mg Tablet,Delayed Release (Dr/Ec) 81 mg PO DAILY Qty: 0 0RF Hold Instructions: Until further recommendations from your issuing operator/primary care physician Discontinued acetaminophen-codeine 300-30 mg tablet 1 - 2 tab PO Q6H MDD 3 GRAMS APAP/ 24 HOURS PRN (Reason: Pain) metoprolol succinate 25 mg Tablet Extended Release 24 Hr 25 mg PO QAM Qty: 0 0RF acetaminophen 325 mg Suppository 325 mg NJ DIRECTED MDD 3 GRAMS APAP/24 HOURS PRN (Reason: PAIN/FEVER--UNABLE TO TAKE PO) nitrofurantoin monohyd/m-cryst [Macrobid] 100 mg Capsule 100 mg PO BID Rx Instructions: STARTED 10/04/24 FOR 7 DAYS, ENDS 10/11/24. must administer with a meal/food Discharge Orders: Discharge Order (Routine); Ordered 10/17/24 Ordered By: Sriram Scott Admission Data Admit Date/Time: 10/11/24 19:47 Attending Provider: Sriram Scott Admit Provider: Omid Ortiz Primary Care Provider: Italo Barboza Other Providers: Omid Ortiz; Paul Chamberlain; [facility]
[2024-10-17 13:11] VITALS: PULSE 85
--- NOTE | 2024-10-17 13:22 | Cardiology Progress Note ---
Date of Service October 17, 2024 Assessment & Plan (1) PAF (paroxysmal atrial fibrillation): (2) HTN (hypertension): (3) Cough: (4) Anemia: Plan Paroxysmal atrial fibrillation. - New diagnosis this admission. - Seemingly asymptomatic - Embolic stroke episodes suspected - [id number] Score 7 points. - Dual antiplatelet therapy discontinued - Reduced dose apixaban (Eliquis) anticoagulation initiated this admission given age of 79 and weight 60 kg. - Chronic anemia is concerning, requiring recurrent transfusions on chart review, with plans to see Hematology as an outpatient in [place] - Outpatient referral for Watchman implantation consideration discussed - Continue metoprolol succinate 37.5 mg BID. - Outpatient cardiology follow-up in 2 to 4 weeks. Guillermo Dumont DO, [facility] Admission and Anticipated Discharge Date Admission Date: October 11, 2024 Subjective Patient seen and examined at the bedside. Denies chest pain or unusual short ness of breath. Telemetry reveals sinus rhythm in the 80s and 90s. Metoprolol titrated yesterday. She is interested in outpatient evaluation for Watchman device. Anxious for discharge. Offers no other concerns/complaints. Review of Systems Review of Systems: All systems reviewed & are unremarkable except as noted in Subjective Physical Exam Constitutional: well nourished; no acute distress Respiratory: no respiratory distress and no labored breathing Auscultation: no crackles, no rales, no rhonchi and no wheezes Cardiovascular: Rate/Rhythm: regular rate and regular rhythm Heart Sounds: normal S1 and normal S2; no murmur Extremities: no edema Gastrointestinal (Abdomen): Inspection/Auscultation: normal bowel sounds; abdomen not distended Percussion/Palpation: abdomen soft; abdomen nontender, no guarding and abdomen not rigid Neurologic: CN's II-XI intact bilaterally and moves all extremities; no focal motor deficits Results & Data Vital Signs (Past 12 Hours) Vital Signs Temp Pulse Pulse Pulse Resp BP Pulse Ox 10/17/24 13:09 36.8 C 85 98 H 18 117/74 94 10/17/24 11:07 36.8 C 98 H 18 117/74 94 10/17/24 07:30 85 10/17/24 07:16 37.0 C 89 18 122/67 91 10/17/24 04:01 37.2 C 86 18 121/65 93 O2 Del Method 10/17/24 13:09 07/14/25 11:07 Room Air 10/17/24 07:30 10/17/24 07:16 Room Air 10/17/24 04:01 Room Air Laboratory Results CBC 10/17/24 Range/Units 06:54 Hgb 8.0 L (12.0-16.0) g/dl Hct 24.6 L (37.0-47.0) % Comprehensive Metabolic Panel 10/17/24 Range/Units 06:54 Sodium 140 (136-145) mmol/L Potassium 4.4 (3.5-5.1) mmol/L Chloride 107 (98-107) mmol/L Carbon Dioxide 27 (21-32) mmol/L BUN 6 (6-23) mg/dl Creatinine 0.35 L (0.6-1.2) mg/dl Glucose 105 H (70-99(Fasting)) mg/dl Calcium 7.1 L (8.6-10.3) mg/dl Intake and Output 10/16/24 10/17/24 10/17/24 22:59 06:59 14:59 Intake Total 120 / 220 Output Total 700 / 2351 150 / 2351 Balance -580 / -2131 -150 / -2131 Intake: Oral 120 / 120 Output: Urine Amount (Catheter) 700 / 2350 150 / 2350 External 700 / 2350 150 / 2350 Other: Weight 61.3 kg Patient Weight 10/18/24 06:59 Weight 61.3 kg PG Care Time/CCT Total # of Minutes Spent Total Time Spent with Patient: Total time spent is greater than 50% in coordination of care (as documented) at patient's floor/unit and/or counseling patient: Coding [place] [address] SUB INP/OBS CARE 3/50MIN Patient Type Established History Detailed Exam Detailed Medical Decision Making Moderate Complexity Diagnoses PAF (paroxysmal atrial fibrillation) I48.0 HTN (hypertension) I10 Cough R05.9 Anemia D64.9 Anemia type: unspecified type (4) Anemia Anemia type: unspecified type Qualified Code(s): D64.9 - Anemia, unspecified
== END 2024-10-17 13:30 | DRG 308 ==
LOC: ED 16:49 → EDINP 19:47 → SUATTDRO 19:47 → EDINP 21:19 → 2S 10-12 09:25

== ENCOUNTER 2024-11-12 19:07 | Inpatient (IN) ==
--- NOTE | 2024-11-12 19:29 | Emergency Department Note ---
Impression & Plan Nausea vomiting and diarrhea, Abdominal pain ED Provider Note CHIEF COMPLAINT: Nausea, vomiting, diarrhea HISTORY OF PRESENTING ILLNESS: This 79-year-old female patient presents to the emergency department via EMS from [facility] for evaluation of nausea, vomiting, and diarrhea. The symptoms started this morning 2 hours after breakfast. She is also having middle abdominal pain rated as 9/10. The patient denies chest pain or shortness of breath. She denies any headache, dizziness, or lightheadedness. She denies any urinary symptoms. Per retirement notes, the patient had 13-15 liquid stools today. The patient was given 3 doses of loperamide at [facility] prior to arrival. REVIEW OF SYSTEMS: See HPI for pertinent positives and pertinent negatives. ALLERGIES: Aspirin MEDICATIONS: See below PAST MEDICAL HISTORY: See below PHYSICAL EXAM: VITALS: Vitals are noted on the nurse's note and reviewed by myself. GENERAL: Non toxic, in no acute distress, non-diaphoretic. SKIN: Capillary refill <2 sec. EYES: PERRLA. EOMI. Conjunctivae without injection, sclerae without icterus. NOSE: Patent without discharge. MOUTH: Mucous membranes moist. Uvula midline. Airway patent. NECK: Supple without nuchal rigidity. HEART: Regular rate and rhythm without murmurs gallops or rubs. LUNGS: Clear to auscultation bilaterally without wheezes, rales or rhonchi. No retractions or accessory muscle use. ABDOMEN: Positive bowel sounds x 4. Normal tympanic percussion. Soft, diffusely tender to palpation over the entire abdomen. No masses or hepatosplenomegaly. Lopez sign negative. No CVA tenderness. No guarding, rigidity, or rebound tenderness. No focal RLQ or LLQ tenderness. MUSCULOSKELETAL: No gross musculoskeletal defects. NEURO: Patient was alert and oriented. No focal neurological deficits. DIFFERENTIAL DIAGNOSIS: Differential diagnosis includes hepatitis, pancreatitis, cholecystitis, cholelithiasis, appendicitis, kidney stone, pyelonephritis, UTI, gastritis, gastroenteritis, mesenteric adenitis, obstruction, constipation, hernia, abdominal abscess, perforation, diverticulitis, IBD, ischemic colitis, abdominal aortic aneurysm, , ectopic , ovarian cyst, ovarian torsion, acute salpingitis, or others. ED COURSE AND MEDICAL DECISION MAKING: HISTORY FROM INDEPENDENT HISTORIAN: Additional history obtained from EMS and notes from [facility]. MEDICATIONS GIVEN: 500 mL normal saline solution bolus. Tylenol 1000 mg IV. Zofran 4 mg IV. Pepcid 20 mg IV. Phenergan 12.5 mg IV. Fentanyl 25 mcg IV. MONITOR: Continuous front services agent: Order was placed for continuous front services agent. Patient was placed on the front services agent and continuous pulse ox. Patient was noted to be in normal sinus rhythm at an initial rate of 88 bpm per my interpretation. EKG: EKG was interpreted by myself as sinus rhythm at 80 bpm with PACs, but no acute ST or T wave changes. INTERPRETATION OF LABS: I interpreted the labs with full lab results as below in the lab section of this note. Laboratory results pertinent to the emergent complaint are discussed in the MDM section below. The patient was advised to follow up with their PCP and/or specialist(s) for further outpatient monitoring and management of any abnormal results. INTERPRETATION OF IMAGING: Imaging studies were interpreted by myself and read by radiology as per the imaging section of this note. The patient was advised to follow up with their PCP and/or specialist(s) for further outpatient management of any non-emergent abnormal findings. Chest x-ray negative for acute cardiopulmonary etiology. CT scan of the abdomen pelvis with IV contrast showed diffuse wall thickening involving the colon and to a lesser degree the distal small bowel suggesting enteritis/ileus. No pneumoperitoneum, free fluid, or abscess seen. EXTERNAL RECORDS REVIEWED: I reviewed the patient's records from [facility] CONSULTATIONS: On-call hospitalist MDM SUMMARY: I examined the patient. The patient started with nausea, vomiting, and diarrhea this morning. She then developed abdominal pain. Per [facility] notes the patient has had 13-15 liquid stools today. She was given loperamide x 3 today. The patient had an episode of vomiting and is now having abdominal pain. An IV lock was placed and labs were drawn. The patient was given 500 mL normal saline solution bolus. She was given Tylenol 1000 mg IV, Zofran 4 mg IV, Pepcid 20 mg IV, Phenergan 12.5 mg IV, and fentanyl 25 mcg IV for her discomfort. White blood cell count elevated 11.86. Hemoglobin low but improved at 10. Platelet count elevated at 420. Coags were normal. Glucose 124 and total bilirubin 1.1, but CMP otherwise normal. Lipase normal. Magnesium normal. High-sensitivity troponin normal. COVID, RSV, and influenza were negative. Urinalysis with trace ketones, but otherwise negative. The patient was unable to give a stool sample while in the emergency department. The patient did not have any additional episodes of diarrhea while in the ER. Chest x-ray negative for acute cardiopulmonary etiology. CT scan of the abdomen pelvis with IV contrast showed diffuse wall thickening involving the colon and to a lesser degree the distal small bowel suggesting enteritis/ileus. No pneumoperitoneum, free fluid, or abscess seen. I had a meaningful discussion about this patient with Dr. Haynes who agrees with my assessment and the treatment plan. The patient was still having episodes of nausea and vomiting despite the above treatment. Therefore, the patient will require admission for further evaluation and treatment. I spoke with the on-call hospitalist who agreed to admit the patient for further evaluation and treatment. Please refer to their dictation for further details. The patient's care was transferred in stable condition. DIAGNOSIS: Nausea, vomiting, diarrhea Abdominal pain Attending Attestation: I Jadon Haynes MD I have reviewed the advanced practitioner's documentation and agree with the plan of care. Admit for symptom control. I accept the responsibility for the associated risk of managing the patient. I performed a substantive portion of the visit including involvement in all aspects of medical decision making. Past Med/Surg History Problem List (Updated 11/13/24 @ 10:38 by Marisa Ashley PA-C) Chronic diastolic (congestive) heart failure Paroxysmal atrial fibrillation Nausea, vomiting and diarrhea Abdominal pain (Acute) Nausea vomiting and diarrhea (Acute) AF (paroxysmal atrial fibrillation) (Acute) Hypomagnesemia (Acute) Heart palpitations (Acute) HTN (hypertension) PAF (paroxysmal atrial fibrillation) Serum total bilirubin elevated (Acute) Acute hypokalemia (Acute) Generalized weakness (Acute) Hypocalcemia (Acute) Hypomagnesemia (Acute) Chest pain (Acute) Hypocalcemia Hypophosphatemia Atrial fibrillation with RVR Prediabetes History of ventricular tachycardia non-sustained GERD (gastroesophageal reflux disease) Hypothyroidism Hyperlipidemia Hypomagnesemia (Acute) Hypokalemia (Acute) Anemia (Acute) Medical History Right sided weakness 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Stroke-like symptoms Anemia Stroke-like symptoms Vomiting Acute UTI Acute CVA (cerebrovascular accident) Ambulatory dysfunction 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[place], post-stroke Acute ischemic stroke Social History Smoking Status: Never smoker Do You Dip or Chew Tobacco: No; Hx Alcohol Use: No Hx Substance Use: No Preferred Language: Frisian Communication Ability: Effective Document Image Technician Required: No Beliefs That Will Affect Care: None Current Living Situation: [facility] Current Living Situation Comment: c/ adult son, 1st floor apartment, [address] Feels Safe at Home: Yes Assistive Devices: Denture - Upper, Denture - Lower and Glasses Allergies Allergies Allergy/AdvReac Type Severity Reaction Status Date / Time aspirin AdvReac Mild per pt she Verified 10/25/24 07:57 gets "really bad heartburn and indigestion" Home Meds Home Medications Medication Instructions Recorded Confirmed levothyroxine 100 mcg tablet 100 mcg PO DAILYBB 07/31/24 11/12/24 cyanocobalamin (vitamin B-12) 1,000 mcg PO QAM 10/11/24 11/12/24 1,000 mcg tablet (Vitamin B-12) meclizine 12.5 mg tablet 12.5 mg PO TID 10/11/24 11/12/24 acetaminophen 300 mg-codeine 30 mg 2 tab PO Q6 PRN pain,moderate & 11/12/24 11/12/24 tablet severe apixaban 2.5 mg tablet (Eliquis) 2.5 mg PO AMHS 11/12/24 11/12/24 calcium carbonate (Tums) 500 mg PO AMHS 11/12/24 11/12/24 metoprolol succinate 25 mg 25 mg PO AMHS 11/12/24 11/12/24 tablet,extended release 24 hr metoprolol succinate 50 mg 50 mg PO AMHS 11/12/24 11/12/24 tablet,extended release 24 hr pantoprazole 40 mg tablet,delayed 40 mg PO AMHS 11/12/24 11/12/24 release polyethylene glycol 3350 17 17 g PO QAM 11/12/24 11/12/24 gram/dose oral powder (Miralax) potassium chloride 20 mEq 20 meq PO QAM 11/12/24 11/12/24 tablet,extended release(part/cryst) psyllium husk 0.52 gram capsule 0.52 g PO DAILY 11/12/24 11/12/24 (Fiber-Caps (psyllium husk)) Previous Rx's Medication Instructions Recorded atorvastatin 40 mg tablet 40 mg PO QAM #0 tabs 08/02/24 buspirone 5 mg tablet 5 mg PO TID #90 tabs 10/17/24 ergocalciferol (vitamin D2) 1,250 1,250 mcg PO Q7D #7 caps 10/17/24 mcg (50,000 unit) capsule Results & Data (ED) Vital Signs Vital Signs - 24 hr 11/12/24 19:00 11/12/24 19:00 11/12/24 19:11 Temperature 36.9 C 36.9 C Temperature Source Oral Oral Pulse Rate 83 Pulse Rate [Right Brachial] 83 Pulse Rate from SpO2 Sensor Pulse Rhythm Regular Pulse Rhythm [Right Brachial] Regular Pulse Strength Normal Pulse Strength [Right Brachial] Normal Respiratory Rate 16 16 Respiratory Effort / Characteristics Non-Labored Non-Labored Respiratory Depth Normal Normal Respiratory Pattern Regular Regular Blood Pressure 150/82 H Blood Pressure [Right Arm] 150/83 H Blood Pressure Mean 104 Blood Pressure Mean [Right Arm] 105 Blood Pressure Position Sitting Blood Pressure Position [Right Arm] Lying Pulse Oximetry 95 95 95 Oxygen Delivery Method Room Air Room Air Room Air Oxygen Flow Rate Sepsis Recent Fever Within 48 Hours No Sepsis New/Unexplained Change in Mental Status N/A Sepsis Action Taken by Nursing No Action Required 11/12/24 19:20 11/12/24 21:00 11/12/24 23:00 Temperature Temperature Source Pulse Rate 82 Pulse Rate [Right Brachial] 94 H 97 H Pulse Rate from SpO2 Sensor Pulse Rhythm Pulse Rhythm [Right Brachial] Regular Regular Pulse Strength Pulse Strength [Right Brachial] Normal Normal Respiratory Rate 16 16 Respiratory Effort / Characteristics Non-Labored Non-Labored Respiratory Depth Normal Normal Respiratory Pattern Regular Blood Pressure Blood Pressure [Right Arm] 163/78 H 151/97 H Blood Pressure Mean Blood Pressure Mean [Right Arm] 106 115 Blood Pressure Position Blood Pressure Position [Right Arm] Lying Lying Pulse Oximetry 100 99 Oxygen Delivery Method Nasal Cannula Room Air Oxygen Flow Rate 2 Sepsis Recent Fever Within 48 Hours Sepsis New/Unexplained Change in Mental Status Sepsis Action Taken by Nursing 11/12/24 23:00 11/12/24 23:27 Temperature Temperature Source Pulse Rate 99 H 88 Pulse Rate [Right Brachial] Pulse Rate from SpO2 Sensor 98 H Pulse Rhythm Pulse Rhythm [Right Brachial] Pulse Strength Pulse Strength [Right Brachial] Respiratory Rate 20 Respiratory Effort / Characteristics Respiratory Depth Respiratory Pattern Blood Pressure 140/75 Blood Pressure [Right Arm] Blood Pressure Mean 96 Blood Pressure Mean [Right Arm] Blood Pressure Position Blood Pressure Position [Right Arm] Pulse Oximetry 100 Oxygen Delivery Method Nasal Cannula Oxygen Flow Rate 2 Sepsis Recent Fever Within 48 Hours Sepsis New/Unexplained Change in Mental Status Sepsis Action Taken by Nursing Laboratory Data 11/13/24 06:04 11/13/24 06:04 Lab Results 11/12/24 11/12/24 11/12/24 Range/Units 19:11 19:41 21:08 WBC Cancelled RBC Cancelled Hgb Cancelled Hct Cancelled MCV Cancelled MCH Cancelled MCHC Cancelled RDW Std Deviation Cancelled RDW Coeff of Romelia Cancelled Plt Count Cancelled MPV Cancelled Immature Gran % (Auto) Cancelled Neut % (Auto) Cancelled Lymph % (Auto) Cancelled [place] % (Auto) Cancelled Eos % (Auto) Cancelled Baso % (Auto) Cancelled Neut # (Auto) Cancelled Lymph # (Auto) Cancelled [place] # (Auto) Cancelled Eos # (Auto) Cancelled Baso # (Auto) Cancelled Immature Gran # (Auto) Cancelled Absolute Nucleated RBC Cancelled Nucleated RBC % (auto) Cancelled Neutrophils % (Manual) Cancelled Band Neutrophils % Cancelled Lymphocytes % (Manual) Cancelled Prolymphocyte % Cancelled Reactive Lymphs % (Man) Cancelled Monocytes % (Manual) Cancelled Eosinophils % (Manual) Cancelled Basophils % (Manual) Cancelled Metamyelocytes % (Man) Cancelled Myelocytes % (Man) Cancelled Promyelocytes % (Man) Cancelled Blast Cells % (Manual) Cancelled Plasma Cell % (Manual) Cancelled Other Cells % Cancelled Nucleated RBC % Cancelled Neutrophils # (Manual) Cancelled Band Neutrophils # Cancelled Total Absolute Neuts Cancelled Lymphocytes # (Manual) Cancelled Prolymphocyte # Cancelled Reactive Lymphs # Cancelled Total Abs Lymphocytes Cancelled Monocytes # (Manual) Cancelled Eosinophils # (Manual) Cancelled Basophils # (Manual) Cancelled Metamyelocytes # (Man) Cancelled Myelocytes # (Manual) Cancelled Promyelocytes # (Man) Cancelled Blast Cells # (Man) Cancelled Plasma Cell # (Manual) Cancelled Other Cells # Cancelled Nucleated RBCs # (Man) Cancelled Hypersegmented Neuts Cancelled Hyposegmented Neuts Cancelled Hypogranular Neuts Cancelled Large Granular Lymphs Cancelled # Lrg Granular Lymphs Cancelled Hairy Cells Cancelled Smudge Cells Cancelled Toxic Granulation Cancelled Toxic Vacuolation Cancelled Dohle Bodies Cancelled Leonard Rods Cancelled Platelet Estimate Cancelled Hypogranular Platelets Cancelled Giant Platelets Cancelled Platelet Satelliting Cancelled RBC Morphology Cancelled Polychromasia Cancelled Hypochromasia Cancelled Poikilocytosis Cancelled Basophilic Stippling Cancelled Anisocytosis Cancelled Microcytosis Cancelled Macrocytosis Cancelled Spherocytes Cancelled Pappenheimer Bodies Cancelled Sickle Cells Cancelled Target Cells Cancelled Tear Drop Cells Cancelled Ovalocytes Cancelled Stomatocytes Cancelled Patel-Fallston Bodies Cancelled Echinocytes Cancelled Acanthocytes (Spur) Cancelled Rouleaux Cancelled RBC Agglutinates Cancelled Schistocytes Cancelled Sezary Cell Cancelled PT 11.9 (9.0-12.0) Seconds INR 1.1 (0.9-1.1) APTT 21 (21-31) Seconds PTT Ratio 0.8 Sodium 139 (136-145) mmol/L Potassium 3.8 (3.5-5.1) mmol/L Chloride 104 (98-107) mmol/L Carbon Dioxide 26 (21-32) mmol/L Anion Gap 9 (3-11) BUN 11 (6-23) mg/dl Creatinine 0.49 L (0.6-1.2) mg/dl Est Cr Clr Drug Dosing 72.9 ml/min eGFR 95.22 BUN/Creatinine Ratio 22.4 H (10-20) Glucose 124 H (70-99(Fasting)) mg/dl Calcium 9.3 (8.6-10.3) mg/dl Magnesium 1.7 (1.7-2.4) mg/dl Total Bilirubin 1.1 H (0.2-1.0) mg/dl AST 19 (13-39) U/L ALT 9 (7-52) U/L Alkaline Phosphatase 79 (34-104) U/L Troponin I High Sens 2.9 (0-14) pg/ml Total Protein 7.4 (6.0-8.3) gm/dl Albumin 4.4 (3.4-5.0) gm/dl Globulin 3.0 (2.5-4.0) gm/dl Albumin/Globulin Ratio 1.5 (0.9-2) Lipase 10 L (11-82) U/L SARS-CoV-2 (PCR) NEGATIVE (Negative) Influenza Type A (PCR) Negative (Neg) Influenza Type B (PCR) Negative (Neg) RSV (RT-PCR) Negative (Neg) Blood Parasites ID Cancelled 11/12/24 Range/Units 22:51 WBC 11.86 H RBC 3.51 L Hgb 10.0 L Hct 32.5 L MCV 92.6 MCH 28.5 MCHC 30.8 L RDW Std Deviation 60.0 H RDW Coeff of Romelia 18.2 H Plt Count 420 H MPV 10.4 Immature Gran % (Auto) 0.8 Neut % (Auto) 89.6 Lymph % (Auto) 5.1 [place] % (Auto) 4.0 Eos % (Auto) 0.0 Baso % (Auto) 0.5 Neut # (Auto) 10.63 H Lymph # (Auto) 0.60 L [place] # (Auto) 0.47 Eos # (Auto) 0.00 Baso # (Auto) 0.06 Immature Gran # (Auto) 0.10 Absolute Nucleated RBC 0.05 Nucleated RBC % (auto) 0.4 Neutrophils % (Manual) Band Neutrophils % Lymphocytes % (Manual) Prolymphocyte % Reactive Lymphs % (Man) Monocytes % (Manual) Eosinophils % (Manual) Basophils % (Manual) Metamyelocytes % (Man) Myelocytes % (Man) Promyelocytes % (Man) Blast Cells % (Manual) Plasma Cell % (Manual) Other Cells % Nucleated RBC % Neutrophils # (Manual) Band Neutrophils # Total Absolute Neuts Lymphocytes # (Manual) Prolymphocyte # Reactive Lymphs # Total Abs Lymphocytes Monocytes # (Manual) Eosinophils # (Manual) Basophils # (Manual) Metamyelocytes # (Man) Myelocytes # (Manual) Promyelocytes # (Man) Blast Cells # (Man) Plasma Cell # (Manual) Other Cells # Nucleated RBCs # (Man) Hypersegmented Neuts Hyposegmented Neuts Hypogranular Neuts Large Granular Lymphs # Lrg Granular Lymphs Hairy Cells Smudge Cells Toxic Granulation Toxic Vacuolation Dohle Bodies Leonard Rods Platelet Estimate Hypogranular Platelets Giant Platelets Platelet Satelliting RBC Morphology Polychromasia Hypochromasia Poikilocytosis Basophilic Stippling Anisocytosis Microcytosis Macrocytosis Spherocytes Pappenheimer Bodies Sickle Cells Target Cells Tear Drop Cells Ovalocytes Stomatocytes Patel-Fallston Bodies Echinocytes Acanthocytes (Spur) Rouleaux RBC Agglutinates Schistocytes Sezary Cell PT (9.0-12.0) Seconds INR (0.9-1.1) APTT (21-31) Seconds PTT Ratio Sodium (136-145) mmol/L Potassium (3.5-5.1) mmol/L Chloride (98-107) mmol/L Carbon Dioxide (21-32) mmol/L Anion Gap (3-11) BUN (6-23) mg/dl Creatinine (0.6-1.2) mg/dl Est Cr Clr Drug Dosing ml/min eGFR BUN/Creatinine Ratio (10-20) Glucose (70-99(Fasting)) mg/dl Calcium (8.6-10.3) mg/dl Magnesium (1.7-2.4) mg/dl Total Bilirubin (0.2-1.0) mg/dl AST (13-39) U/L ALT (7-52) U/L Alkaline Phosphatase (34-104) U/L Troponin I High Sens (0-14) pg/ml Total Protein (6.0-8.3) gm/dl Albumin (3.4-5.0) gm/dl Globulin (2.5-4.0) gm/dl Albumin/Globulin Ratio (0.9-2) Lipase (11-82) U/L SARS-CoV-2 (PCR) (Negative) Influenza Type A (PCR) (Neg) Influenza Type B (PCR) (Neg) RSV (RT-PCR) (Neg) Blood Parasites ID Administered Medications Apixaban (Apixaban 2.5 Mg Tab) 2.5 mg PO AMHS JORGE Stop: 12/13/24 08:59 Last Admin: 11/13/24 08:10 Dose: 2.5 mg Documented By: LISSY Atorvastatin Calcium (Atorvastatin 40 Mg Tab) 40 mg PO QAM JORGE Stop: 12/13/24 08:59 Last Admin: 11/13/24 08:09 Dose: 40 mg Documented By: LISSY Buspirone HCl (Buspirone 5 Mg Tab) 5 mg PO TID JORGE Stop: 12/13/24 08:59 Last Admin: 11/13/24 08:09 Dose: 5 mg Documented By: LISSY Calcium Carbonate (Calcium Carbonate 500 Mg Chewable Tab) 500 mg PO AMHS [facility] Stop: 12/13/24 08:59 Last Admin: 11/13/24 08:09 Dose: 500 mg Documented By: LISSY Cyanocobalamin (Cyanocobalamin (B-12) 500 Mcg Tablet) 1,000 mcg PO QAM [facility] Stop: 12/13/24 08:59 Last Admin: 11/13/24 08:09 Dose: 1,000 mcg Documented By: LISSY Potassium Chloride/Sodium Chloride (Normal Saline W/20 Meq Kcl) 20 meq in 1,000 mls @ 60 mls/hr IV .[id number] STA Stop: 11/13/24 16:38 Last Admin: 11/13/24 00:30 Dose: 60 mls/hr Documented By: JOSEPH Promethazine HCl (Phenergan) 6.25 mg in 50.25 mls @ 201 mls/hr IV Q6H PRN PRN Reason: Nausea And Vomiting Stop: 12/13/24 00:47 Last Infusion: 11/13/24 10:34 Dose: Infused Documented By: Admin: 11/13/24 09:14 Dose: 201 mls/hr Documented By: Infusion: 11/13/24 03:16 Dose: Infused Documented By: Admin: 11/13/24 02:33 Dose: 201 mls/hr Documented By: JOVANI Levothyroxine Sodium (Levothyroxine Sodium 100 Mcg Tablet) 100 mcg PO DAILYBB [facility] Stop: 12/13/24 06:29 Last Admin: 11/13/24 06:14 Dose: 100 mcg Documented By: JOVANI Meclizine HCl (Meclizine 12.5 Mg Tab) 12.5 mg PO TID [facility] Stop: 12/13/24 08:59 Last Admin: 11/13/24 08:09 Dose: 12.5 mg Documented By: LISSY Metoprolol Succinate (Metoprolol Succ 25mg Ext Rel Tab) 75 mg PO AMHS [facility] Stop: 12/13/24 08:59 Last Admin: 11/13/24 08:09 Dose: 75 mg Documented By: LISSY Morphine Sulfate (Morphine Sulfate 2 Mg/Ml Carp) 2 mg IV Q4H PRN PRN Reason: Mod-Sev Pain (Scale 4-10) Stop: 11/27/24 10:06 Last Admin: 11/13/24 12:29 Dose: 2 mg Documented By: LISSY Oxycodone HCl (Oxycodone Hcl Ir 5 Mg Tab (Immediate Release)) 5 mg PO Q4H PRN PRN Reason: Pain Stop: 11/27/24 00:47 Last Admin: 11/13/24 02:26 Dose: 5 mg Documented By: edenilson Polyethylene Glycol (Polyethylene (Miralax) 17 Gm Pack) 17 gm PO [facility] Stop: 12/13/24 08:59 Last Admin: 11/13/24 08:05 Dose: Not Given Documented By: LISSY Potassium Chloride (Potassium Chloride Crtab 20 Meq Tabcr) 20 meq PO [facility] Stop: 12/13/24 08:59 Last Admin: 11/13/24 08:08 Dose: 20 meq Documented By: LISSY Discontinued Medications Fentanyl Citrate (Fentanyl Citrate Pf 100 Mcg/2 Ml Vial) 25 mcg IV NOW ONE Stop: 11/12/24 22:38 Last Admin: 11/12/24 23:19 Dose: 25 mcg Documented By: JOSEPH Hydralazine HCl (Hydralazine Hcl 20 Mg/Ml Vial) 5 mg IV NOW STA Stop: 11/13/24 00:51 Last Admin: 11/13/24 01:28 Dose: 5 mg Documented By: JOSEPH Sodium Chloride (Nss) 500 mls @ 999 mls/hr IV .Q31M ONE Stop: 11/12/24 20:10 Last Infusion: 11/12/24 21:05 Dose: Infused Documented By: Admin: 11/12/24 20:22 Dose: 999 mls/hr Documented By: RONNIE Acetaminophen (Ofirmev) 1,000 mg in 100 mls @ 400 mls/hr IV NOW STA Stop: 11/12/24 19:54 Last Infusion: 11/12/24 21:05 Dose: Infused Documented By: Admin: 11/12/24 20:22 Dose: 400 mls/hr Documented By: RONNIE Famotidine (Pepcid 20mg Iv Push) 20 mg in 5 mls @ 2.5 mls/min IV NOW STA Stop: 11/12/24 19:41 Last Admin: 11/12/24 20:22 Dose: 2.5 mls/min Documented By: RONNIE Promethazine HCl (Phenergan) 12.5 mg in 50.5 mls @ 202 mls/hr IV NOW STA Stop: 11/12/24 22:07 Last Infusion: 11/12/24 23:01 Dose: Infused Documented By: Admin: 11/12/24 22:32 Dose: 202 mls/hr Documented By: RONNIE Sodium Chloride (Nss) 1,000 mls @ 60 mls/hr IV .[id number] [facility] Stop: 11/14/24 19:30 Last Admin: 11/13/24 10:36 Dose: Not Given Documented By: LISSY Ioversol (Optiray 320 100ml) 90 ml IV ONCE ONE Stop: 11/12/24 21:25 Last Admin: 11/12/24 21:24 Dose: 90 ml Documented By: ERIN Metoclopramide HCl (Metoclopramide Hcl Inj 5 Mg/Ml 2 Ml Vial) 10 mg IV Q6H PRN PRN Reason: Nausea Stop: 12/13/24 12:33 Last Admin: 11/13/24 12:38 Dose: 10 mg Documented By: LISSY Ondansetron HCl (Ondansetron Inj 2 Mg/Ml 2 Ml Vial) 4 mg IV NOW STA Stop: 11/12/24 19:41 Last Admin: 11/12/24 20:22 Dose: 4 mg Documented By: RONNIE Pantoprazole Sodium (Pantoprazole 40 Mg Tab) 40 mg PO AMHS [facility] Stop: 12/13/24 08:59 Last Admin: 11/13/24 08:10 Dose: 40 mg Documented By: LISSY Imaging Data Radiologist's Impression: Abdomen/Pelvis CT 11/12/24 19:40 Exam(s): CT ABDOMEN + PELVIS With Contrast IV Amt: 90 ml optiray 320 EXAM: CT Abdomen and Pelvis With Intravenous Contrast CLINICAL HISTORY: Reason for exam: abdominal pain, N/V/D. TECHNIQUE: Axial computed tomography images of the abdomen and pelvis with intravenous contrast. CTDI is 10 mGy and DLP is 476 mGy-cm. Automated exposure control was utilized for the study. A dose lowering technique was utilized adhering to the principles of ALARA. CONTRAST: Patient received 90 ml optiray 320 of IV contrast COMPARISON: 08/26/2024 FINDINGS: Lung bases: Small amount of bibasilar atelectasis. Heart: Mild cardiomegaly and moderate coronary calcification involving all coronary vessels. ABDOMEN: Liver: Unremarkable. No mass. Gallbladder and bile ducts: Previous cholecystectomy with pneumobilia. The biliary tree is nondilated. Pancreas: Unremarkable. No mass. No ductal dilation. Spleen: Unremarkable. No splenomegaly. Adrenals: Unremarkable. No mass. Kidneys and ureters: Unremarkable. No solid mass. No hydronephrosis. Stomach and bowel: Bowel loops are nondilated. There is mild diffuse wall thickening involving the colon and to a lesser degree distal small bowel suggesting enteritis and/or ileus. No pneumoperitoneum, free fluid, or abscess is seen. PELVIS: Appendix: The appendix is not visible. Bladder: Unremarkable. No mass. Reproductive: The uterus is absent. ABDOMEN and PELVIS: Intraperitoneal space: See above. Bones/joints: [id number] degenerative changes throughout the spine. There is a new 30% compression fracture involving the inferior endplate of T12, likely chronic. No dislocation. Soft tissues: Unremarkable. Vasculature: The abdominal aorta is heavily calcified but nondilated. There is no aneurysm or dissection. Lymph nodes: Unremarkable. No enlarged lymph nodes. IMPRESSION: Bowel loops are nondilated. There is mild diffuse wall thickening involving the colon and to a lesser degree distal small bowel suggesting enteritis and/or ileus. No pneumoperitoneum, free fluid, or abscess is seen. Electronically signed by: Jadon Mayorga MD 11/12/24 23:47 PM Chest X-Ray 11/12/24 19:40 Chest radiograph, one view History: Abdominal pain Comparison: None Findings: Single AP view of the chest performed. No focal consolidation or pleural effusion. No pneumothorax. The cardiomediastinal silhouette is within normal limits. Normal pulmonary vascularity. No evidence for lymphadenopathy. No visualized bony or soft tissue abnormality. Impression: Normal chest radiograph Electronically signed by Marc Carroll 11-12-2024 8:31 PM Discharge Plan Visit Data Chief Complaint: Abdominal Pain Stated Complaint: N/V/D ED Provider: Jadon Haynes ED Midlevel Provider: Evie Ravi Discharge Problem: Nausea vomiting and diarrhea, Abdominal pain Patient Disposition: Admitted As Inpatient Condition: Fair Discharge Instructions Interventions: ED Discharge Assessment Last Done: 11/13/24 01:35 Discharge Problem: Abdominal pain Qualifiers: Abdominal location: generalized Qualified Code(s): R10.84 - Generalized abdominal pain
[2024-11-12] MEDS: ACETAMINOPHEN 1,000 MG/100 ML VIAL IV STA (20:22)
[2024-11-12] MEDS: SODIUM CHLORIDE 0.9% 500 ML IV ONE (20:22)
[2024-11-12] MEDS: FAMOTIDINE 20MG IV PUSH 20 MG/5 ML SYR IV STA (20:22)
[2024-11-12] MEDS: ONDANSETRON INJ 2 MG/ML 2 ML VIAL IV STA (20:22)
--- NOTE | 2024-11-12 20:31 | XRay Report ---
Chest radiograph, one view History: Abdominal pain Comparison: None Findings: Single AP view of the chest performed. No focal consolidation or pleural effusion. No pneumothorax. The cardiomediastinal silhouette is within normal limits. Normal pulmonary vascularity. No evidence for lymphadenopathy. No visualized bony or soft tissue abnormality. Impression: Normal chest radiograph Electronically signed by Marc Carroll 11-12-2024 8:31 PM
[2024-11-12 21:06] LABS: Alanine Aminotransferase 9.0 U/L (7-52); Albumin Globulin Ratio 1.5 (0.9-2); Alkaline Phosphatase 79.0 U/L (34-104); Anion Gap 9.0 (3-11); Bilirubin,Total 1.1 mg/dl (0.2-1.0); Blood Urea Nitrogen 11.0 mg/dl (6-23); Calcium 9.3 mg/dl (8.6-10.3); Carbon Dioxide 26.0 mmol/L (21-32); Chloride 104.0 mmol/L (98-107); Creatinine Clr Calc Pharmacy 72.9 ml/min; Globulin 3.0 gm/dl (2.5-4.0); Glucose 124.0 mg/dl (70-99(Fasting)); Lipase 10.0 U/L (11-82); Magnesium 1.7 mg/dl (1.7-2.4); Potassium 3.8 mmol/L (3.5-5.1); Sodium 139.0 mmol/L (136-145); Total Protein 7.4 gm/dl (6.0-8.3)
[2024-11-12] MEDS: OPTIRAY 320 100ml IV ONE (21:24)
[2024-11-12 21:42] LABS: INR 1.1 (0.9-1.1); Partial Thromboplastin Time 21 Seconds (21-31); Prothrombin Time 11.9 Seconds (9.0-12.0)
[2024-11-12 21:54] LABS: Influenza A virus by PCR Negative (Neg); Influenza B virus by PCR Negative (Neg); SARS CoV2 RNA(COVID-19) Ceph NEGATIVE (Negative)
[2024-11-12] MEDS: PROMETHAZINE 12.5 MG/50.5 ML BAG IV STA (22:32)
[2024-11-12 23:25] LABS: Hematocrit (blood only) 32.5 % (37.0-47.0); Hemoglobin 10.0 g/dl (12.0-16.0); Immature Granulocytes # (auto) 0.10 K/uL (0.01-0.20); Immature Granulocytes % (auto) 0.8 %; Mean Corpuscular Hemoglobin 28.5 pg (25.0-34.0); Mean Corpuscular Volume 92.6 fL (80.0-100.0); Platelet Count 420 K/uL (130-400); RDW Standard Deviation 60.0 fL (36.4-46.3); Red Blood Count 3.51 M/uL (4.20-5.40); White Blood Count 11.86 K/ul (4.8-10.8)
[2024-11-12 23:35] LABS: Appearance Urine Clear (Clear); Glucose Urine UA Negative (Negative)
--- NOTE | 2024-11-12 23:48 | CT Scan Report ---
Exam(s): CT ABDOMEN + PELVIS With Contrast IV Amt: 90 ml optiray 320 EXAM: CT Abdomen and Pelvis With Intravenous Contrast CLINICAL HISTORY: Reason for exam: abdominal pain, N/V/D. TECHNIQUE: Axial computed tomography images of the abdomen and pelvis with intravenous contrast. CTDI is 10 mGy and DLP is 476 mGy-cm. Automated exposure control was utilized for the study. A dose lowering technique was utilized adhering to the principles of ALARA. CONTRAST: Patient received 90 ml optiray 320 of IV contrast COMPARISON: 08/26/2024 FINDINGS: Lung bases: Small amount of bibasilar atelectasis. Heart: Mild cardiomegaly and moderate coronary calcification involving all coronary vessels. ABDOMEN: Liver: Unremarkable. No mass. Gallbladder and bile ducts: Previous cholecystectomy with pneumobilia. The biliary tree is nondilated. Pancreas: Unremarkable. No mass. No ductal dilation. Spleen: Unremarkable. No splenomegaly. Adrenals: Unremarkable. No mass. Kidneys and ureters: Unremarkable. No solid mass. No hydronephrosis. Stomach and bowel: Bowel loops are nondilated. There is mild diffuse wall thickening involving the colon and to a lesser degree distal small bowel suggesting enteritis and/or ileus. No pneumoperitoneum, free fluid, or abscess is seen. PELVIS: Appendix: The appendix is not visible. Bladder: Unremarkable. No mass. Reproductive: The uterus is absent. ABDOMEN and PELVIS: Intraperitoneal space: See above. Bones/joints: [id number] degenerative changes throughout the spine. There is a new 30% compression fracture involving the inferior endplate of T12, likely chronic. No dislocation. Soft tissues: Unremarkable. Vasculature: The abdominal aorta is heavily calcified but nondilated. There is no aneurysm or dissection. Lymph nodes: Unremarkable. No enlarged lymph nodes. IMPRESSION: Bowel loops are nondilated. There is mild diffuse wall thickening involving the colon and to a lesser degree distal small bowel suggesting enteritis and/or ileus. No pneumoperitoneum, free fluid, or abscess is seen. Electronically signed by: Jadon Mayorga MD 11/12/24 23:47 PM
--- NOTE | 2024-11-12 23:53 | History & Physical Report ---
Date of Service November 12, 2024 Assessment & Plan (1) Abdominal pain: Plan: Assessment and plan below following discussion of case with ED provider and reviewing patient history/pertinent normal/abnormal diagnostic test results. Acute gastroenteritis Rule out C. difficile given recent antibiotic Rx and snf residence chronic diastolic heart failure (EF 60 to 65%, TTE 2024), patient on the dry side hx A-fib on Eliquis valvular heart disease (mild TR/AR) Hypertension, slightly elevated hx embolic CVA hypothyroidism, euthyroid as of TSH this month prediabetes, hemoglobin A1c of 5.7 last August 2024 chronic anemia, hemoglobin at baseline chronic vertigo on meclizine anxiety/mood disorder, at baseline history ESBL OBS Admit to [facility] for presumptive viral gastroenteritis Check stool C. difficile DVT prophylaxis. Eliquis Full code Text document was generated using [employer]uffle voice recognition software. It may contain grammatical or spelling errors. Kindly contact undersigned for clarification of any documentation item in question. History of Present Illness Chief Complaint: Nausea/vomiting/diarrhea Primary Care Provider: Italo Barboza History obtained from patient and records. Medical history significant for chronic diastolic heart failure (EF 60 to 65%, TTE 2024), A-fib on Eliquis, NSVT, valvular heart disease (mild TR/AR), hypertension, pulmonary hypertension, CVA, hypothyroidism, prediabetes, chronic anemia (baseline hemoglobin of 9-10), chronic vertigo on meclizine, anxiety/mood disorder, history ESBL. Recent confinement last month for new onset A-fib in the setting of acute bronchitis. Patient discharged on Eliquis for A-fib and doxycycline course for bronchitis. Recent ER visit for palpitations. Patient with nausea, vomiting, watery diarrhea symptoms since yesterday. Achy abdominal pain. Denies headache, chest pain, SOB. No improvement despite Imodium Rx at snf. Medical History as above Surgical History : Knee surgery, hernia repair Family History : Heart disease, DM, Parkinson syndrome, stroke, suicide Personal/Social history : Non-smoker, no EtOH intake, snf resident Allergies Allergy/AdvReac Type Severity Reaction Status Date / Time aspirin AdvReac Mild per pt she Verified 10/25/24 07:57 gets "really bad heartburn and indigestion" Home Medications Medication Instructions Recorded Confirmed Type levothyroxine 100 mcg tablet 100 mcg PO DAILYBB 07/31/24 11/12/24 History atorvastatin 40 mg tablet 40 mg PO QAM #0 tabs 08/02/24 11/12/24 Rx cyanocobalamin (vitamin B-12) 1,000 mcg PO QAM 10/11/24 11/12/24 History 1,000 mcg tablet (Vitamin B-12) meclizine 12.5 mg tablet 12.5 mg PO TID 10/11/24 11/12/24 History buspirone 5 mg tablet 5 mg PO TID #90 tabs 10/17/24 11/12/24 Rx ergocalciferol (vitamin D2) 1,250 1,250 mcg PO Q7D #7 caps 10/17/24 11/12/24 Rx mcg (50,000 unit) capsule acetaminophen 300 mg-codeine 30 mg 2 tab PO Q6 PRN pain,moderate & 11/12/24 11/12/24 History tablet severe apixaban 2.5 mg tablet (Eliquis) 2.5 mg PO AMHS 11/12/24 11/12/24 History calcium carbonate (Tums) 500 mg PO AMHS 11/12/24 11/12/24 History metoprolol succinate 25 mg 25 mg PO AMHS 11/12/24 11/12/24 History tablet,extended release 24 hr metoprolol succinate 50 mg 50 mg PO AMHS 11/12/24 11/12/24 History tablet,extended release 24 hr pantoprazole 40 mg tablet,delayed 40 mg PO AMHS 11/12/24 11/12/24 History release polyethylene glycol 3350 17 17 g PO QAM 11/12/24 11/12/24 History gram/dose oral powder (Miralax) potassium chloride 20 mEq 20 meq PO QAM 11/12/24 11/12/24 History tablet,extended release(part/cryst) psyllium husk 0.52 gram capsule 0.52 g PO DAILY 11/12/24 11/12/24 History (Fiber-Caps (psyllium husk)) Past Med/Surg History Problem List (Updated 11/12/24 @ 23:54 by Evie Ravi PA-C) Abdominal pain (Acute) Nausea vomiting and diarrhea (Acute) AF (paroxysmal atrial fibrillation) (Acute) Hypomagnesemia (Acute) Heart palpitations (Acute) HTN (hypertension) PAF (paroxysmal atrial fibrillation) Serum total bilirubin elevated (Acute) Acute hypokalemia (Acute) Generalized weakness (Acute) Hypocalcemia (Acute) Hypomagnesemia (Acute) Chest pain (Acute) Hypocalcemia Hypophosphatemia Atrial fibrillation with RVR Prediabetes History of ventricular tachycardia non-sustained GERD (gastroesophageal reflux disease) Hypothyroidism Hyperlipidemia Hypomagnesemia (Acute) Hypokalemia (Acute) Anemia (Acute) Medical History Right sided weakness 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Stroke-like symptoms Anemia Stroke-like symptoms Vomiting Acute UTI Acute CVA (cerebrovascular accident) Ambulatory dysfunction 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[place], post-stroke Acute ischemic stroke Social History Smoking Status: Never smoker Do You Dip or Chew Tobacco: No; Hx Alcohol Use: No Hx Substance Use: No Preferred Language: Algerian Communication Ability: Effective 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 Beliefs That Will Affect Care: None Current Living Situation: Shelter Current Living Situation Comment: c/ adult son, [address]st floor apartment, [address] Feels Safe at Home: Yes Assistive Devices: Denture - Upper, Denture - Lower and Glasses Review of Systems Review of Systems: As per HPI, all other systems reviewed and negative Physical Exam Physical Exam: GENERAL: Comfortable, no respiratory distress SKIN: Pallor, warm HEENT: bespectacled, pale palpebral conjunctivae, no ptosis, dry buccal mucosa NECK : Supple, no tenderness CHEST : CTA, no tenderness HEART : RRR, no obvious murmurs ABDOMEN: Some distention, central abdominal tenderness EXTREMITIES : Minimal no LE swelling, no LE tenderness, palpable pulses, no other conspicuous deformities noted NEUROLOGIC : Coherent, no facial asymmetry, no other gross focality Results & Data Results & Data Vital Signs (Past 12 Hours) Vital Signs Temp Pulse Pulse Resp BP BP Pulse Ox 11/12/24 23:00 99 H 20 140/75 100 11/12/24 23:00 97 H 16 151/97 H 99 11/12/24 21:00 94 H 16 163/78 H 100 11/12/24 19:20 82 11/12/24 19:11 95 11/12/24 19:00 36.9 C 83 16 150/83 H 95 11/12/24 19:00 36.9 C 83 16 150/82 H 95 O2 Del Method O2 Flow Rate 11/12/24 23:00 Nasal Cannula 2 11/12/24 23:00 Room Air 11/12/24 21:00 Nasal Cannula 2 11/12/24 19:20 11/12/24 19:11 Room Air 11/12/24 19:00 Room Air 11/12/24 19:00 Room Air Laboratory Results Laboratory Results WBC 11.86 K/ul (4.8-10.8) H 11/12/24 22:51 RBC 3.51 M/uL (4.20-5.40) L 11/12/24 22:51 Hgb 10.0 g/dl (12.0-16.0) L 11/12/24 22:51 Hct 32.5 % (37.0-47.0) L 11/12/24 22:51 MCV 92.6 fL (80.0-100.0) 11/12/24 22:51 MCH 28.5 pg (25.0-34.0) 11/12/24 22:51 MCHC 30.8 g/dL (32.0-36.0) L 11/12/24 22:51 RDW Std Deviation 60.0 fL (36.4-46.3) H 11/12/24 22:51 RDW Coeff of Romelia 18.2 % (11.5-14.5) H 11/12/24 22:51 Plt Count 420 K/uL (130-400) H 11/12/24 22:51 MPV 10.4 fL (9.4-12.4) 11/12/24 22:51 Immature Gran % (Auto) 0.8 % 11/12/24 22:51 Neut % (Auto) 89.6 % 11/12/24 22:51 Lymph % (Auto) 5.1 % 11/12/24 22:51 [place] % (Auto) 4.0 % 11/12/24 22:51 Eos % (Auto) 0.0 % 11/12/24 22:51 Baso % (Auto) 0.5 % 11/12/24 22:51 Neut # (Auto) 10.63 K/uL (1.40-6.50) H 11/12/24 22:51 Lymph # (Auto) 0.60 K/uL (1.20-3.40) L 11/12/24 22:51 [place] # (Auto) 0.47 K/uL (0.11-0.59) 11/12/24 22:51 Eos # (Auto) 0.00 K/uL (0.00-0.50) 11/12/24 22:51 Baso # (Auto) 0.06 K/uL (0.00-0.20) 11/12/24 22:51 Immature Gran # (Auto) 0.10 K/uL (0.01-0.20) 11/12/24 22:51 Absolute Nucleated RBC 0.05 K/uL (0.00-0.12) 11/12/24 22:51 Nucleated RBC % (auto) 0.4 % 11/12/24 22:51 Neutrophils % (Manual) Cancelled 11/12/24 19:11 Band Neutrophils % Cancelled 11/12/24 19:11 Lymphocytes % (Manual) Cancelled 11/12/24 19:11 Prolymphocyte % Cancelled 11/12/24 19:11 Reactive Lymphs % (Man) Cancelled 11/12/24 19:11 Monocytes % (Manual) Cancelled 11/12/24 19:11 Eosinophils % (Manual) Cancelled 11/12/24 19:11 Basophils % (Manual) Cancelled 11/12/24 19:11 Metamyelocytes % (Man) Cancelled 11/12/24 19:11 Myelocytes % (Man) Cancelled 11/12/24 19:11 Promyelocytes % (Man) Cancelled 11/12/24 19:11 Blast Cells % (Manual) Cancelled 11/12/24 19:11 Plasma Cell % (Manual) Cancelled 11/12/24 19:11 Other Cells % Cancelled 11/12/24 19:11 Nucleated RBC % Cancelled 11/12/24 19:11 Neutrophils # (Manual) Cancelled 11/12/24 19:11 Band Neutrophils # Cancelled 11/12/24 19:11 Total Absolute Neuts Cancelled 11/12/24 19:11 Lymphocytes # (Manual) Cancelled 11/12/24 19:11 Prolymphocyte # Cancelled 11/12/24 19:11 Reactive Lymphs # Cancelled 11/12/24 19:11 Total Abs Lymphocytes Cancelled 11/12/24 19:11 Monocytes # (Manual) Cancelled 11/12/24 19:11 Eosinophils # (Manual) Cancelled 11/12/24 19:11 Basophils # (Manual) Cancelled 11/12/24 19:11 Metamyelocytes # (Man) Cancelled 11/12/24 19:11 Myelocytes # (Manual) Cancelled 11/12/24 19:11 Promyelocytes # (Man) Cancelled 11/12/24 19:11 Blast Cells # (Man) Cancelled 11/12/24 19:11 Plasma Cell # (Manual) Cancelled 11/12/24 19:11 Other Cells # Cancelled 11/12/24 19:11 Nucleated RBCs # (Man) Cancelled 11/12/24 19:11 Hypersegmented Neuts Cancelled 11/12/24 19:11 Hyposegmented Neuts Cancelled 11/12/24 19:11 Hypogranular Neuts Cancelled 11/12/24 19:11 Large Granular Lymphs Cancelled 11/12/24 19:11 # Lrg Granular Lymphs Cancelled 11/12/24 19:11 Hairy Cells Cancelled 11/12/24 19:11 Smudge Cells Cancelled 11/12/24 19:11 Toxic Granulation Cancelled 11/12/24 19:11 Toxic Vacuolation Cancelled 11/12/24 19:11 Dohle Bodies Cancelled 11/12/24 19:11 Leonard Rods Cancelled 11/12/24 19:11 Platelet Estimate Cancelled 11/12/24 19:11 Hypogranular Platelets Cancelled 11/12/24 19:11 Giant Platelets Cancelled 11/12/24 19:11 Platelet Satelliting Cancelled 11/12/24 19:11 RBC Morphology Cancelled 11/12/24 19:11 Polychromasia Cancelled 11/12/24 19:11 Hypochromasia Cancelled 11/12/24 19:11 Poikilocytosis Cancelled 11/12/24 19:11 Basophilic Stippling Cancelled 11/12/24 19:11 Anisocytosis Cancelled 11/12/24 19:11 Microcytosis Cancelled 11/12/24 19:11 Macrocytosis Cancelled 11/12/24 19:11 Spherocytes Cancelled 11/12/24 19:11 Pappenheimer Bodies Cancelled 11/12/24 19:11 Sickle Cells Cancelled 11/12/24 19:11 Target Cells Cancelled 11/12/24 19:11 Tear Drop Cells Cancelled 11/12/24 19:11 Ovalocytes Cancelled 11/12/24 19:11 Stomatocytes Cancelled 11/12/24 19:11 [place] Bodies Cancelled 11/12/24 19:11 Echinocytes Cancelled 11/12/24 19:11 Acanthocytes (Spur) Cancelled 11/12/24 19:11 Rouleaux Cancelled 11/12/24 19:11 RBC Agglutinates Cancelled 11/12/24 19:11 Schistocytes Cancelled 11/12/24 19:11 Sezary Cell Cancelled 11/12/24 19:11 PT 11.9 Seconds (9.0-12.0) 11/12/24 19:41 INR 1.1 (0.9-1.1) 11/12/24 19:41 APTT 21 Seconds (21-31) 11/12/24 19:41 PTT Ratio 0.8 11/12/24 19:41 Sodium 139 mmol/L (136-145) 11/12/24 19:11 Potassium 3.8 mmol/L (3.5-5.1) 11/12/24 19:11 Chloride 104 mmol/L (98-107) 11/12/24 19:11 Carbon Dioxide 26 mmol/L (21-32) 11/12/24 19:11 Anion Gap 9 (3-11) 11/12/24 19:11 BUN 11 mg/dl (6-23) 11/12/24 19:11 Creatinine 0.49 mg/dl (0.6-1.2) L 11/12/24 19:11 Est Cr Clr Drug Dosing 72.9 ml/min 11/12/24 19:11 eGFR 95.22 11/12/24 19:11 BUN/Creatinine Ratio 22.4 (10-20) H 11/12/24 19:11 Glucose 124 mg/dl (70-99(Fasting)) H 11/12/24 19:11 Calcium 9.3 mg/dl (8.6-10.3) 11/12/24 19:11 Magnesium 1.7 mg/dl (1.7-2.4) 11/12/24 19:11 Total Bilirubin 1.1 mg/dl (0.2-1.0) H 11/12/24 19:11 AST 19 U/L (13-39) 11/12/24 19:11 ALT 9 U/L (7-52) 11/12/24 19:11 Alkaline Phosphatase 79 U/L (34-104) 11/12/24 19:11 Troponin I High Sens 2.9 pg/ml (0-14) 11/12/24 19:11 Total Protein 7.4 gm/dl (6.0-8.3) 11/12/24 19:11 Albumin 4.4 gm/dl (3.4-5.0) 11/12/24 19:11 Globulin 3.0 gm/dl (2.5-4.0) 11/12/24 19:11 Albumin/Globulin Ratio 1.5 (0.9-2) 11/12/24 19:11 Lipase 10 U/L (11-82) L 11/12/24 19:11 Urine Color Yellow 11/12/24 Unknown Urine Appearance Clear (Clear) 11/12/24 Unknown Urine pH 5.0 (4.5-7.5) 11/12/24 Unknown Ur Specific [place] > 1.045 (1.000-1.030) H 11/12/24 Unknown Urine Protein Negative (Negative) 11/12/24 Unknown Urine Glucose (UA) Negative (Negative) 11/12/24 Unknown Urine Ketones Trace (Negative) H 11/12/24 Unknown Urine Blood Negative (Negative) 11/12/24 Unknown Urine Nitrite Negative (Negative) 11/12/24 Unknown Urine Bilirubin Negative (Negative) 11/12/24 Unknown Urine Urobilinogen Negative (Negative) 11/12/24 Unknown Ur Leukocyte Esterase Negative (Negative) 11/12/24 Unknown Urine Comment 11/12/24 Unknown SARS-CoV-2 (PCR) NEGATIVE (Negative) 11/12/24 21:08 Influenza Type A (PCR) Negative (Neg) 11/12/24 21:08 Influenza Type B (PCR) Negative (Neg) 11/12/24 21:08 RSV (RT-PCR) Negative (Neg) 11/12/24 21:08 Blood Parasites ID Cancelled 11/12/24 19:11 Impressions Abdomen/Pelvis CT 11/12/24 19:40 Exam(s): CT ABDOMEN + PELVIS With Contrast IV Amt: 90 ml optiray 320 EXAM: CT Abdomen and Pelvis With Intravenous Contrast CLINICAL HISTORY: Reason for exam: abdominal pain, N/V/D. TECHNIQUE: Axial computed tomography images of the abdomen and pelvis with intravenous contrast. CTDI is 10 mGy and DLP is 476 mGy-cm. Automated exposure control was utilized for the study. A dose lowering technique was utilized adhering to the principles of ALARA. CONTRAST: Patient received 90 ml optiray 320 of IV contrast COMPARISON: 08/26/2024 FINDINGS: Lung bases: Small amount of bibasilar atelectasis. Heart: Mild cardiomegaly and moderate coronary calcification involving all coronary vessels. ABDOMEN: Liver: Unremarkable. No mass. Gallbladder and bile ducts: Previous cholecystectomy with pneumobilia. The biliary tree is nondilated. Pancreas: Unremarkable. No mass. No ductal dilation. Spleen: Unremarkable. No splenomegaly. Adrenals: Unremarkable. No mass. Kidneys and ureters: Unremarkable. No solid mass. No hydronephrosis. Stomach and bowel: Bowel loops are nondilated. There is mild diffuse wall thickening involving the colon and to a lesser degree distal small bowel suggesting enteritis and/or ileus. No pneumoperitoneum, free fluid, or abscess is seen. PELVIS: Appendix: The appendix is not visible. Bladder: Unremarkable. No mass. Reproductive: The uterus is absent. ABDOMEN and PELVIS: Intraperitoneal space: See above. Bones/joints: [id number] degenerative changes throughout the spine. There is a new 30% compression fracture involving the inferior endplate of T12, likely chronic. No dislocation. Soft tissues: Unremarkable. Vasculature: The abdominal aorta is heavily calcified but nondilated. There is no aneurysm or dissection. Lymph nodes: Unremarkable. No enlarged lymph nodes. IMPRESSION: Bowel loops are nondilated. There is mild diffuse wall thickening involving the colon and to a lesser degree distal small bowel suggesting enteritis and/or ileus. No pneumoperitoneum, free fluid, or abscess is seen. Electronically signed by: Jadon Mayorga MD 11/12/24 23:47 PM Chest X-Ray 11/12/24 19:40 Chest radiograph, one view History: Abdominal pain Comparison: None Findings: Single AP view of the chest performed. No focal consolidation or pleural effusion. No pneumothorax. The cardiomediastinal silhouette is within normal limits. Normal pulmonary vascularity. No evidence for lymphadenopathy. No visualized bony or soft tissue abnormality. Impression: Normal chest radiograph Electronically signed by Marc Carroll 11-12-2024 8:31 PM Diagnostic Findings EKG as per my interpretation :Rate 80, NSR, LAD, LAFB, nonspecific T wave abnormalities (1) Abdominal pain Abdominal location: generalized Qualified Code(s): R10.84 - Generalized abdominal pain
[2024-11-13] MEDS: NSS + 20MEQ KCL 20 MEQ/1,000 ML BAG IV STA (00:30)
[2024-11-13] MEDS ORDERED: ACETAMINOPHEN 325 MG TAB PO PRN (00:48)
[2024-11-13 02:16] LABS: Cdiff Toxin B Gene (2yr or >) Negative Cdiff Gene (Neg)
[2024-11-13] MEDS: PROMETHAZINE 6.25 MG/50.25 ML BAG IV PRN (02:33)
[2024-11-13 02:52] LABS: Adenovirus F 40/41 PCR Not Detected (NotDetected); Campylobacter PCR Not Detected (NotDetected); Enteroaggregative E.coli(EAEC) Not Detected (NotDetected); Shiga-like Toxin E.coli (STEC) Not Detected (NotDetected); Vibrio species PCR Not Detected (NotDetected)
[2024-11-13] MEDS: LEVOTHYROXINE SODIUM 100 MCG TABLET PO SCH (06:14)
[2024-11-13 06:30] LABS: Hematocrit (blood only) 31.6 % (37.0-47.0); Hemoglobin 10.0 g/dl (12.0-16.0); Immature Granulocytes # (auto) 0.12 K/uL (0.01-0.20); Immature Granulocytes % (auto) 1.2 %; Mean Corpuscular Hemoglobin 29.2 pg (25.0-34.0); Mean Corpuscular Volume 92.4 fL (80.0-100.0); Platelet Count 412 K/uL (130-400); RDW Standard Deviation 59.3 fL (36.4-46.3); Red Blood Count 3.42 M/uL (4.20-5.40); White Blood Count 9.73 K/ul (4.8-10.8)
[2024-11-13 06:53] LABS: Anion Gap 7.0 (3-11); Blood Urea Nitrogen 8.0 mg/dl (6-23); Calcium 8.5 mg/dl (8.6-10.3); Carbon Dioxide 26.0 mmol/L (21-32); Chloride 106.0 mmol/L (98-107); Creatinine Clr Calc Pharmacy 82.2 ml/min; Glucose 117.0 mg/dl (70-99(Fasting)); Potassium 4.0 mmol/L (3.5-5.1); Sodium 139.0 mmol/L (136-145)
[2024-11-13] MEDS ORDERED: LOPERAMIDE HCL 2 MG CAP PO PRN (07:59)
[2024-11-13] MEDS: POLYETHYLENE (MIRALAX) 17 GM PACK PO SCH (08:05)
[2024-11-13] MEDS: POTASSIUM CHLORIDE CRTAB 20 MEQ TABCR PO SCH (08:08)
[2024-11-13] MEDS: CYANOCOBALAMIN (B-12) 500 MCG TABLET PO SCH (08:09)
[2024-11-13] MEDS: MECLIZINE 12.5 MG TAB PO SCH (08:09)
[2024-11-13] MEDS: CALCIUM CARBONATE 500 MG CHEWABLE TAB PO SCH (08:09)
[2024-11-13] MEDS: METOPROLOL SUCC 25MG EXT REL TAB PO SCH (08:09)
[2024-11-13] MEDS: ATORVASTATIN 40 MG TAB PO SCH (08:09)
[2024-11-13] MEDS: busPIRone 5 MG TAB PO SCH (08:09)
[2024-11-13] MEDS: APIXABAN 2.5 MG TAB PO SCH (08:10)
--- NOTE | 2024-11-13 10:04 | Hospitalist Progress Note ---
<Statement entered by Antonio Guevara, DO - 11/13/24 13:17> I have seen and examined the patient and have discussed the case with the advance practice provider. I have reviewed the advanced practitioner's documentation, and I agree with, and take responsibility for that plan of care. Patient seen this morning, still fairly nauseated. Did not tolerate any thing by mouth. Reviewed diagnostics, suspects possible viral gastroenteritis. Also possible mild ileus due to relative immobility at [facility]. Reviewed KUB, no evidence of obstruction, no air-fluid levels, no significant dilatation of bowel to indicate ileus No indication for surgical consultation, Schedule Reglan and start full liquid diet Plan of care as outlined below I spent a total of 22 minutes coordinating, documenting, and providing care for this patient excluding time spent by another provider/QHP. Date of Service November 13, 2024 Assessment & Plan (1) Nausea, vomiting and diarrhea: (2) Paroxysmal atrial fibrillation: (3) Chronic diastolic (congestive) heart failure: (4) GERD (gastroesophageal reflux disease): Plan Patient is an 79y/o F with PMHx significant for prediabetes [Hgb A1c 5.9% in 08/5024], HLD, acquired hypothyroidism, HTN, chronic diastolic CHF, PAF antico agulated on Eliquis, history of multiple CVAs with residual R hemiparesis [most recent in 07/2024 and 08/2024], Meniere's disease, GERD, vitamin D deficiency, chronic anemia [baseline Hgb 8-10], severe malnutrition, DEREK, vertigo, splenomegaly, history of ESBL E. coli infection and other problems as outlined in her chart who presented to the ED via EMS from [facility] on 11/12/24 with complaints of N/V/D. Recent confinement 10/11/24-10/17/24 for new-onset afib w/ RVR, electrolyte imbalances 2/2 diarrhea [stool testing neg], acute bronchitis s/p tx with doxycycline and acute on chronic anemia. Patient was DC to [facility] for rehab services following that admission. #N/V and diarrhea Lipase negligible Stool PCR, C. diff neg CTAP on admission: nondilated bowel loops, mild diffuse wall thickening involving the colon/distal small bowel suggesting enteritis and/or ileus Pt initially transitioned to HH diet given tolerance of liquids overnight how ever she ended up vomiting all of her AM meds -Switched to NPO except sips/chips for now -Gentle IVF onboard -Hypoactive bowel sounds on exam today --> c/f ? ileus on admitting CTAP --> will check KUB PRN analgesia ? viral gastroenteritis vs ileus vs developing SBO Possible gen surg consult pending KUB results #PAF anticoagulated on Eliquis Continue Eliquis, BB -Pt vomited AM meds today --> will attempt to give these again later on today if able HR controlled #Chronic diastolic CHF TTE, 08/2024: EF 60-65%, mild concentric LVH, mild AR, mild TR Gentle IVF onboard in light of this, closely monitor volume status #GERD Transition to IV PPI for now ISO N/V #Chronic anemia Hgb at baseline, continue to monitor Other chronic medical conditions: HLD, DEREK, vertigo, hypothyroidism --> continue home meds as able ISO N/V DVT Prophylaxis: Eliquis, SCDs/TEDs Code Status: FULL CODE Disposition: Possible DC back to [facility] tomorrow depending on clinical course Patient seen in collaboration with Dr. Guevara. Please see addendum. I spent a total of 38 minutes coordinating, documenting, and providing care for this patient excluding time spent in the performance of separately billed services or time spent by another provider/QHP. This included personally reviewing all current laboratories and imaging studies, medical reconciliation, outpatient chart review and discussion with specialists. This chart was completed in part utilizing Speech Voice Recognition Software. Grammatical errors, random word insertions, pronoun errors, and incomplete sentences are an occasional consequence of this system due to software limitations, ambient noise, and hardware issues. Any formal questions or concerns about the content, text, or information contained within the body of this dictation should be directly addressed to the provider for clarification. Admission and Anticipated Discharge Date Admission Date: November 12, 2024 Subjective Patient seen and examined in room N381-1. Experiencing bouts of N/V this morning. Unable to keep down morning meds. Diarrhea slowed down overnight per nursing staff. Feeling some relief in her nausea with IV Phenergan. Endorses crampy pain in the center of her abdomen. Denies any SOB or chest pain. VSS except for labile tachycardia which seems to be improving. Review of Systems Review of Systems: At least ten systems reviewed and negative, except as noted in the subjective section. Physical Exam Physical Exam: General: Elderly F, NAD, laying down in bed, ill-appearing, A&Ox3 HEENT: Normocephalic, atraumatic, dry mucous membranes Respiratory: Normal respiratory effort, CTAB Cardiovascular: RRR, no BLE edema, normal peripheral pulses Abdomen/GI: Hypoactive bowel sounds, soft/nondistended but TTP in middle of abd and epigastrium Extremities/Musculoskeletal: Actively moves all extremities, motor strength 5/5 in all extremities Neurologic: No overt focal deficits, CN's II-XI not formally tested but appear grossly intact bilaterally Results & Data Results & Data Vital Signs (Past 12 Hours) Vital Signs Temp Pulse Pulse Pulse Resp BP BP 11/13/24 08:43 11/13/24 07:21 37.5 C 90 20 135/68 11/13/24 06:17 11/13/24 02:37 37.2 C 93 H 14 154/70 H 11/13/24 02:07 11/13/24 01:35 36.9 C 11/13/24 01:33 88 24 160/81 H 11/13/24 01:22 94 H 18 161/78 H 11/13/24 00:36 96 H 22 11/13/24 00:27 88 12 113/84 11/13/24 00:06 85 20 161/82 H 11/12/24 23:27 88 11/12/24 23:00 99 H 20 140/75 11/12/24 23:00 97 H 16 151/97 H Pulse Ox O2 Del Method O2 Flow Rate 11/13/24 08:43 Room Air 11/13/24 07:21 93 Room Air 11/13/24 06:17 98 Room Air 11/13/24 02:37 99 Nasal Cannula 2 11/13/24 02:07 Nasal Cannula 2 11/13/24 01:35 11/13/24 01:33 100 Room Air 2 11/13/24 01:22 100 Nasal Cannula 2 11/13/24 00:36 100 Nasal Cannula 2 11/13/24 00:27 100 Nasal Cannula 2 11/13/24 00:06 100 Nasal Cannula 2 11/12/24 23:27 11/12/24 23:00 100 Nasal Cannula 2 11/12/24 23:00 99 Room Air Laboratory Results Short CBC 11/12/24 11/12/24 11/13/24 Range/Units 19:11 22:51 06:04 WBC Cancelled 11.86 H 9.73 Hgb Cancelled 10.0 L 10.0 L Hct Cancelled 32.5 L 31.6 L Plt Count Cancelled 420 H 412 H BMP 11/12/24 11/13/24 19:11 06:04 Sodium 139 139 Potassium 3.8 4.0 Chloride 104 106 Carbon Dioxide 26 26 BUN 11 8 Creatinine 0.49 L 0.44 L Glucose 124 H 117 H Calcium 9.3 8.5 L Liver Function 11/12/24 Range/Units 19:11 Total Bilirubin 1.1 H (0.2-1.0) mg/dl AST 19 (13-39) U/L ALT 9 (7-52) U/L Alkaline Phosphatase 79 (34-104) U/L Albumin 4.4 (3.4-5.0) gm/dl Urine 11/12/24 Range/Units Unknown Urine Color Yellow Urine Appearance Clear (Clear) Urine pH 5.0 (4.5-7.5) Ur Specific Bowman > 1.045 H (1.000-1.030) Urine Protein Negative (Negative) Urine Glucose (UA) Negative (Negative) (4) GERD (gastroesophageal reflux disease) Esophagitis presence: esophagitis presence not specified Qualified Code(s): K21.9 - Gastro-esophageal reflux disease without esophagitis
[2024-11-13] MEDS: SODIUM CHLORIDE 0.9% 1,000 ML IV SCH (10:36)
--- NOTE | 2024-11-13 11:01 | XRay Report ---
KUB HISTORY: Acute generalized abdominal pain C/f ileus vs SBO COMPARISON: CT 11/12/2024 FINDINGS: Cholecystectomy. Nonobstructive bowel gas pattern. Contrast in the urinary bladder lumen. No renal calculi. No ureteral calculi. No pneumoperitoneum or pneumatosis. Mild lumbar levoscoliosis. No fracture. IMPRESSION: Nonobstructive bowel gas pattern. ACT 112: Negative or not required by law. The above report was generated using voice recognition software. It may contain grammatical, syntax o r spelling errors. Electronically signed by: Ronaldo Adams M.D. 11/13/2024 11:00 AM
[2024-11-13] MEDS: MoRPHine SULFATE 2 MG/ML CARP IV PRN (12:29)
[2024-11-13] MEDS: METOCLOPRAMIDE HCL INJ 5 MG/ML 2 ML VIAL IV PRN (12:38)
[2024-11-13] MEDS: METOCLOPRAMIDE HCL INJ 5 MG/ML 2 ML VIAL IV SCH (16:37)
[2024-11-13] MEDS: PANTOprazole 40 MG/10 ML SYR IV SCH (21:00)
--- NOTE | 2024-11-14 08:07 | Electrocardiogram Report ---
Test Reason : Blood Pressure : */* mmHG Vent. Rate : 80 BPM Atrial Rate : 80 BPM P-R Int : 150 ms QRS Dur : 86 ms QT Int : 392 ms P-R-T Axes : 63 -37 22 degrees QTcB Int : 452 ms Sinus rhythm with Premature atrial complexes Left axis deviation Abnormal ECG When compared with ECG of 06-Nov-2024 07:16, Premature atrial complexes are now Present Confirmed by Radha Clement (Ofe) on 11/14/2024 8:06:51 AM Referred By: REFERRED SELF Confirmed By: Radha Clement
[2024-11-14 08:50] LABS: Hematocrit (blood only) 30.0 % (37.0-47.0); Hemoglobin 9.6 g/dl (12.0-16.0); Immature Granulocytes # (auto) 0.08 K/uL (0.01-0.20); Immature Granulocytes % (auto) 1.0 %; Mean Corpuscular Hemoglobin 29.1 pg (25.0-34.0); Mean Corpuscular Volume 90.9 fL (80.0-100.0); Platelet Count 406 K/uL (130-400); RDW Standard Deviation 59.2 fL (36.4-46.3); Red Blood Count 3.30 M/uL (4.20-5.40); White Blood Count 8.13 K/ul (4.8-10.8)
[2024-11-14 09:00] LABS: Anion Gap 9.0 (3-11); Calcium 8.3 mg/dl (8.6-10.3); Carbon Dioxide 24.0 mmol/L (21-32); Chloride 106.0 mmol/L (98-107); Magnesium 1.9 mg/dl (1.7-2.4); Potassium 3.9 mmol/L (3.5-5.1); Sodium 139.0 mmol/L (136-145)
[2024-11-14 09:05] LABS: Blood Urea Nitrogen 10.0 mg/dl (6-23); Creatinine Clr Calc Pharmacy 106.4 ml/min; Glucose 75.0 mg/dl (70-99(Fasting))
--- NOTE | 2024-11-14 13:31 | Hospitalist Progress Note ---
<Statement entered by Antonio Guevara, DO - 11/14/24 15:45> I have seen and examined the patient and have discussed the case with the advance practice provider. I have reviewed the advanced practitioner's documentation, and I agree with, and take responsibility for that plan of care. Patient states she is feeling better compared to yesterday but still a bit nauseated. Vomiting and diarrhea have resolved. Slowly advance diet I spent a total of 11 minutes coordinating, documenting, and providing care for this patient excluding time spent by another provider/QHP. Date of Service November 14, 2024 Assessment & Plan (1) Nausea, vomiting and diarrhea: (2) Paroxysmal atrial fibrillation: (3) Chronic diastolic (congestive) heart failure: (4) GERD (gastroesophageal reflux disease): Plan 79 year old female with PMH significant for prediabetes [Hgb A1c 5.9% in 08/5024], HLD, acquired hypothyroidism, HTN, chronic diastolic CHF, PAF anticoagulated on Eliquis, history of multiple CVAs with residual R hemiparesis [most recent in 07/2024 and 08/2024], Meniere's disease, GERD, vitamin D deficiency, chronic anemia [baseline Hgb 8-10], severe malnutrition, DEREK, vertigo, splenomegaly, history of ESBL E. coli infection who presented to the ED via EMS from [facility] on 11/12/24 with complaints of N/V/D and is admitted for this. Recent confinement 10/11/24-10/17/24 for new-onset afib w/ RVR, electrolyte imbalances 2/2 diarrhea [stool testing neg], acute bronchitis s/p tx with doxycycline and acute on chronic anemia. Patient was DC to [facility] for rehab services following that admission. Nausea and vomiting Diarrhea Likely viral gastroenteritis Stool PCR, C. diff neg CTAP on admission: nondilated bowel loops, mild diffuse wall thickening involving the colon/distal small bowel suggesting enteritis and/or ileus Stool PCR, C. diff neg Hypoactive bowel sounds on 11/13/24 - KUB obtained and revealed nonobstructive gas pattern Continue antiemetics and pain medication PRN Diet advanced today PT/OT consults PAF anticoagulated on Eliquis Continue Eliquis and metoprolol Chronic diastolic CHF TTE, 08/2024: EF 60-65%, mild concentric LVH, mild AR, mild TR Patient appears euvolemic GERD Continue PPI Chronic anemia Hgb at baseline Hyperlipidemia Continue statin Hypothyroidism Continue levothyroxine History of vertigo Continue meclizine Anxiety Continue buspirone DVT Prophylaxis: on Eliquis Code Status: FULL CODE PCP: Italo Barboza Disposition: possible dc tomorrow pending PT/OT recs Patient seen in collaboration with Dr Guevara. Please see addendum. I spent a total of 60 minutes coordinating, documenting and providing care for this patient excluding time spent in the performance of separately billed services or time spent by another provider/QHP. Admission and Anticipated Discharge Date Admission Date: November 13, 2024 Subjective Patient seen sitting up in bed Reports she has epigastric abdominal pain and is nauseous No vomiting since yesterday morning Diarrhea has resolved No other acute complaints Review of Systems Review of Systems: All systems reviewed & are unremarkable except as noted in Subjective Physical Exam Physical Exam: General/Psych: ill appearing, sitting up in bed, NAD, conversing easily Head: normocephalic, atraumatic Eyes: normal inspection, PERRL, conjunctivae pink ENT: external ear and nose normal, oropharynx normal Neck: normal visual inspection, trachea midline Respiratory: normal respiratory effort, lungs clear to auscultation, no wheeze/rales/rhonchi, no accessory muscle use Cardiovascular: irregular rate and rhythm, no murmur/rub/gallop, no JVD Extremities: no cyanosis or clubbing, normal peripheral pulses, no BLE edema Abdomen/GI: normal bowel sounds, soft, tender on palpation Neurologic/MSK: A+Ox3, motor strength 5/5, moves all extremities Skin: no rashes, normal color, warm and dry Results & Data Results & Data Vital Signs (Past 12 Hours) Vital Signs Temp Pulse Resp BP Pulse Ox O2 Del Method 11/14/24 07:26 36.8 C 80 16 125/68 95 Room Air Laboratory Results Short CBC 11/14/24 Range/Units 07:22 WBC 8.13 (4.8-10.8) K/ul Hgb 9.6 L (12.0-16.0) g/dl Hct 30.0 L (37.0-47.0) % Plt Count 406 H (130-400) K/uL BMP 11/14/24 07:22 Sodium 139 Potassium 3.9 Chloride 106 Carbon Dioxide 24 BUN 10 Creatinine 0.34 L Glucose 75 Calcium 8.3 L I have independently reviewed and interpreted patient's labs including CBC, BMP, mag Medications Administered Current Inpatient Medications Acetaminophen (Acetaminophen 325 Mg Tab) 650 mg PO QID PRN PRN Reason: pain/fever Stop: 12/13/24 00:47 Apixaban (Apixaban 2.5 Mg Tab) 2.5 mg PO [facility]CLUDE 234 BEDS AT THE [facility] Stop: 12/13/24 08:59 Last Admin: 11/14/24 10:00 Dose: 2.5 mg Atorvastatin Calcium (Atorvastatin 40 Mg Tab) 40 mg PO QAM COUNTS INCLUDE 234 BEDS AT THE [facility] Stop: 12/13/24 08:59 Last Admin: 11/14/24 10:02 Dose: 40 mg Buspirone HCl (Buspirone 5 Mg Tab) 5 mg PO TID COUNTS INCLUDE 234 BEDS AT THE [facility] Stop: 12/13/24 08:59 Last Admin: 11/14/24 10:00 Dose: 5 mg Calcium Carbonate (Calcium Carbonate 500 Mg Chewable Tab) 500 mg PO [facility] Stop: 12/13/24 08:59 Last Admin: 11/14/24 10:01 Dose: Not Given Cyanocobalamin (Cyanocobalamin (B-12) 500 Mcg Tablet) [facility] [place] [facility] Stop: 12/13/24 08:59 Last Admin: 11/14/24 10:06 Dose: Not Given Promethazine HCl (Phenergan) 6.25 mg in 50.25 mls @ 201 mls/hr IV Q6H PRN PRN Reason: Nausea And Vomiting Stop: 12/13/24 00:47 Last Infusion: 11/14/24 02:22 Dose: Infused Pantoprazole Sodium (Protonix) 40 mg in 10 mls @ 5 mls/min IV BID COUNTS INCLUDE 234 BEDS AT THE [facility] Stop: 12/13/24 20:59 Last Admin: 11/14/24 10:02 Dose: 5 mls/min Levothyroxine Sodium (Levothyroxine Sodium 100 Mcg Tablet) 100 mcg PO DAILYBB COUNTS INCLUDE 234 BEDS AT THE [facility] Stop: 12/13/24 06:29 Last Admin: 11/14/24 05:51 Dose: 100 mcg Loperamide HCl (Loperamide Hcl 2 Mg Cap) 2 mg PO UD PRN PRN Reason: Diarrhea Stop: 12/13/24 07:58 Meclizine HCl (Meclizine 12.5 Mg Tab) 12.5 mg PO TID COUNTS INCLUDE 234 BEDS AT THE [facility] Stop: 12/13/24 08:59 Last Admin: 11/14/24 10:01 Dose: 12.5 mg Metoclopramide HCl (Metoclopramide Hcl Inj 5 Mg/Ml 2 Ml Vial) 10 mg IV ACHS COUNTS INCLUDE 234 BEDS AT THE [facility] Stop: 12/13/24 16:29 Last Admin: 11/14/24 09:23 Dose: 10 mg Metoprolol Succinate (Metoprolol Succ 25mg Ext Rel Tab) 75 mg PO AMHS COUNTS INCLUDE 234 BEDS AT THE [facility] Stop: 12/13/24 08:59 Last Admin: 11/14/24 10:01 Dose: 75 mg Morphine Sulfate (Morphine Sulfate 2 Mg/Ml Carp) 2 mg IV Q4H PRN PRN Reason: Mod-Sev Pain (Scale 4-10) Stop: 11/27/24 10:06 Last Admin: 11/14/24 05:53 Dose: 2 mg Oxycodone HCl (Oxycodone Hcl Ir 5 Mg Tab (Immediate Release)) 5 mg PO Q4H PRN PRN Reason: Pain Stop: 11/27/24 00:47 Last Admin: 11/13/24 02:26 Dose: 5 mg Polyethylene Glycol (Polyethylene (Miralax) 17 Gm Pack) 17 gm PO [facility] Stop: 12/13/24 08:59 Last Admin: 11/14/24 09:24 Dose: Not Given Potassium Chloride (Potassium Chloride Crtab 20 Meq Tabcr) 20 meq PO [facility] Stop: 12/13/24 08:59 Last Admin: 11/14/24 10:05 Dose: Not Given (4) GERD (gastroesophageal reflux disease) Esophagitis presence: esophagitis presence not specified Qualified Code(s): K21.9 - Gastro-esophageal reflux disease without esophagitis
--- NOTE | 2024-11-15 08:42 | Hospitalist Progress Note ---
<Statement entered by Antonio Guevara, DO - 11/15/24 14:50> I have seen and examined the patient and have discussed the case with the advance practice provider. I have reviewed the advanced practitioner's documentation, and I agree with, and take responsibility for that plan of care. Patient states that nausea is continuing to improve. Still reporting occasional loose stool. Abdomen soft, nontender, nondistended Patient may need some as needed Imodium Plan of care as outlined below I spent a total of 11 minutes coordinating, documenting, and providing care for this patient excluding time spent by another provider/QHP. Date of Service November 15, 2024 Assessment & Plan (1) Nausea, vomiting and diarrhea: (2) Paroxysmal atrial fibrillation: (3) Chronic diastolic (congestive) heart failure: (4) GERD (gastroesophageal reflux disease): Plan 79 year old female with PMH significant for prediabetes [Hgb A1c 5.9% in 08/5024], HLD, acquired hypothyroidism, HTN, chronic diastolic CHF, PAF anticoagulated on Eliquis, history of multiple CVAs with residual R hemiparesis [most recent in 07/2024 and 08/2024], Meniere's disease, GERD, vitamin D deficiency, chronic anemia [baseline Hgb 8-10], severe malnutrition, DEREK, vertigo, splenomegaly, history of ESBL E. coli infection who presented to the ED via EMS from [facility] on 11/12/24 with complaints of N/V/D and is admitted for this. Recent confinement 10/11/24-10/17/24 for new-onset afib w/ RVR, electrolyte imbalances 2/2 diarrhea [stool testing neg], acute bronchitis s/p tx with doxycycline and acute on chronic anemia. Patient was DC to [facility] for rehab services following that admission. Nausea and vomiting Diarrhea Likely viral gastroenteritis Stool PCR, C. diff neg CTAP on admission: nondilated bowel loops, mild diffuse wall thickening involving the colon/distal small bowel suggesting enteritis and/or ileus Continue antiemetics and pain medication PRN Symptoms are improving PT/OT recommending return to [facility] for remainder of rehab stay PAF anticoagulated on Eliquis Continue Eliquis and metoprolol Chronic diastolic CHF TTE, 08/2024: EF 60-65%, mild concentric LVH, mild AR, mild TR Patient appears euvolemic GERD Continue PPI Chronic anemia Hgb at baseline Hyperlipidemia Continue statin Hypothyroidism Continue levothyroxine History of vertigo Continue meclizine Anxiety Continue buspirone DVT Prophylaxis: on Eliquis Code Status: FULL CODE PCP: Italo Barboza Disposition: possible dc tomorrow back to [facility] Patient seen in collaboration with Dr Guevara. Please see addendum. I spent a total of 40 minutes coordinating, documenting and providing care for this patient excluding time spent in the performance of separately billed services or time spent by another provider/QHP. Admission and Anticipated Discharge Date Admission Date: November 13, 2024 Subjective Patient seen sitting up in bed Reports she is feeling better today Nausea is improved and vomiting is resolved Had two bowel movements this morning - one more formed Feeling stronger today No other acute complaints Review of Systems Review of Systems: All systems reviewed & are unremarkable except as noted in Subjective Physical Exam Physical Exam: General/Psych: WD/WN, sitting up in bed, NAD, conversing easily Head: normocephalic, atraumatic Eyes: normal inspection, PERRL, conjunctivae pink ENT: external ear and nose normal, oropharynx normal Neck: normal visual inspection, trachea midline Respiratory: normal respiratory effort, lungs clear to auscultation, no wheeze/rales/rhonchi, no accessory muscle use Cardiovascular: regular rate and rhythm, no murmur/rub/gallop, no JVD Extremities: no cyanosis or clubbing, normal peripheral pulses, no BLE edema Abdomen/GI: hypoactive bowel sounds, soft, slightly tender on palpation Neurologic/MSK: A+Ox3, motor strength 5/5, moves all extremities Skin: no rashes, normal color, warm and dry Results & Data Results & Data Vital Signs (Past 12 Hours) Vital Signs Temp Pulse Resp BP Pulse Ox O2 Del Method 11/15/24 07:30 37.1 C 83 19 152/67 H 94 Room Air 11/14/24 23:48 37.4 C 90 18 140/77 95 Room Air Laboratory Results Short CBC 11/15/24 Range/Units 11:32 WBC 7.13 (4.8-10.8) K/ul Hgb 10.9 L (12.0-16.0) g/dl Hct 33.7 L (37.0-47.0) % Plt Count 393 (130-400) K/uL BMP 11/15/24 11:32 Sodium 133 L Potassium 4.2 Chloride 98 Carbon Dioxide 25 BUN 12 Creatinine 0.33 L Glucose 89 Calcium 8.6 I have independently reviewed and interpreted patient's labs including CBC, BMP, mag Medications Administered Current Inpatient Medications Acetaminophen (Acetaminophen 325 Mg Tab) 650 mg PO QID PRN PRN Reason: pain/fever Stop: 12/13/24 00:47 Apixaban (Apixaban 2.5 Mg Tab) 2.5 mg PO [facility] Stop: 12/13/24 08:59 Last Admin: 11/15/24 08:40 Dose: 2.5 mg Atorvastatin Calcium (Atorvastatin 40 Mg Tab) [facility] [place] Stop: 12/13/24 08:59 Last Admin: 11/15/24 08:40 Dose: 40 mg Buspirone HCl (Buspirone 5 Mg Tab) 5 mg PO TID [facility] Stop: 12/13/24 08:59 Last Admin: 11/15/24 08:39 Dose: 5 mg Calcium Carbonate (Calcium Carbonate 500 Mg Chewable Tab) 500 mg PO [facility] Stop: 12/13/24 08:59 Last Admin: 11/14/24 10:01 Dose: Not Given Cyanocobalamin (Cyanocobalamin (B-12) 500 Mcg Tablet) 1,000 mcg PO [facility] Stop: 12/13/24 08:59 Last Admin: 11/14/24 10:06 Dose: Not Given Promethazine HCl (Phenergan) 6.25 mg in 50.25 mls @ 201 mls/hr IV Q6H PRN PRN Reason: Nausea And Vomiting Stop: 12/13/24 00:47 Last Infusion: 11/15/24 02:27 Dose: Infused Pantoprazole Sodium (Protonix) 40 mg in 10 mls @ 5 mls/min IV BID [facility] Stop: 12/13/24 20:59 Last Admin: 11/15/24 08:35 Dose: 5 mls/min Levothyroxine Sodium (Levothyroxine Sodium 100 Mcg Tablet) 100 mcg PO DAILYBB [facility] Stop: 12/13/24 06:29 Last Admin: 11/15/24 05:45 Dose: 100 mcg Loperamide HCl (Loperamide Hcl 2 Mg Cap) 2 mg PO UD PRN PRN Reason: Diarrhea Stop: 12/13/24 07:58 Meclizine HCl (Meclizine 12.5 Mg Tab) 12.5 mg PO TID [facility] Stop: 12/13/24 08:59 Last Admin: 11/15/24 08:38 Dose: 12.5 mg Metoclopramide HCl (Metoclopramide Hcl Inj 5 Mg/Ml 2 Ml Vial) 10 mg IV ACHS [facility] Stop: 12/13/24 16:29 Last Admin: 11/15/24 11:06 Dose: 10 mg Metoprolol Succinate (Metoprolol Succ 25mg Ext Rel Tab) 75 mg PO AMHS [facility] Stop: 12/13/24 08:59 Last Admin: 11/15/24 08:40 Dose: 75 mg Morphine Sulfate (Morphine Sulfate 2 Mg/Ml Carp) 2 mg IV Q4H PRN PRN Reason: Mod-Sev Pain (Scale 4-10) Stop: 11/27/24 10:06 Last Admin: 11/15/24 05:46 Dose: 2 mg Oxycodone HCl (Oxycodone Hcl Ir 5 Mg Tab (Immediate Release)) 5 mg PO Q4H PRN PRN Reason: Pain Stop: 11/27/24 00:47 Last Admin: 11/15/24 11:06 Dose: 5 mg Polyethylene Glycol (Polyethylene (Miralax) 17 Gm Pack) 17 gm PO [facility] Stop: 12/13/24 08:59 Last Admin: 11/14/24 09:24 Dose: Not Given Potassium Chloride (Potassium Chloride Crtab 20 Meq Tabcr) 20 meq PO [facility] Stop: 12/13/24 08:59 Last Admin: 11/15/24 08:35 Dose: 20 meq (4) GERD (gastroesophageal reflux disease) Esophagitis presence: esophagitis presence not specified Qualified Code(s): K21.9 - Gastro-esophageal reflux disease without esophagitis
[2024-11-15 12:00] LABS: Hematocrit (blood only) 33.7 % (37.0-47.0); Hemoglobin 10.9 g/dl (12.0-16.0); Mean Corpuscular Hemoglobin 28.9 pg (25.0-34.0); Mean Corpuscular Volume 89.4 fL (80.0-100.0); Platelet Count 393 K/uL (130-400); RDW Standard Deviation 56.9 fL (36.4-46.3); Red Blood Count 3.77 M/uL (4.20-5.40); White Blood Count 7.13 K/ul (4.8-10.8)
[2024-11-15 12:11] LABS: Anion Gap 10.0 (3-11); Blood Urea Nitrogen 12.0 mg/dl (6-23); Calcium 8.6 mg/dl (8.6-10.3); Carbon Dioxide 25.0 mmol/L (21-32); Chloride 98.0 mmol/L (98-107); Creatinine Clr Calc Pharmacy 109.6 ml/min; Glucose 89.0 mg/dl (70-99(Fasting)); Magnesium 1.7 mg/dl (1.7-2.4); Potassium 4.2 mmol/L (3.5-5.1); Sodium 133.0 mmol/L (136-145)
[2024-11-15 14:11] VITALS: O2SAT 94
[2024-11-15] MEDS ORDERED: LOPERAMIDE HCL 2 MG CAP PO PRN (14:49)
[2024-11-15 23:36] VITALS: RESP 16
[2024-11-16 07:00] VITALS: BP 159/71; TEMP 98.4
[2024-11-16 10:05] LABS: Hematocrit (blood only) 34.2 % (37.0-47.0); Hemoglobin 11.0 g/dl (12.0-16.0); Mean Corpuscular Hemoglobin 28.8 pg (25.0-34.0); Mean Corpuscular Volume 89.5 fL (80.0-100.0); Platelet Count 443 K/uL (130-400); RDW Standard Deviation 56.2 fL (36.4-46.3); Red Blood Count 3.82 M/uL (4.20-5.40); White Blood Count 7.27 K/ul (4.8-10.8)
[2024-11-16 10:21] LABS: Anion Gap 7.0 (3-11); Blood Urea Nitrogen 11.0 mg/dl (6-23); Calcium 8.8 mg/dl (8.6-10.3); Carbon Dioxide 29.0 mmol/L (21-32); Chloride 99.0 mmol/L (98-107); Creatinine Clr Calc Pharmacy 95.2 ml/min; Glucose 121.0 mg/dl (70-99(Fasting)); Potassium 4.4 mmol/L (3.5-5.1); Sodium 135.0 mmol/L (136-145)
--- NOTE | 2024-11-16 11:34 | Discharge Summary ---
Discharge Summary Date of Service November 16, 2024 Principal Dx & Hospital Course #1 = Principal Diagnosis (1) Nausea, vomiting and diarrhea: (2) Paroxysmal atrial fibrillation: (3) Chronic diastolic (congestive) heart failure: (4) GERD (gastroesophageal reflux disease): Plan 79 year old female with PMH significant for prediabetes [Hgb A1c 5.9% in 08/5024], HLD, acquired hypothyroidism, HTN, chronic diastolic CHF, PAF anticoag ulated on Eliquis, history of multiple CVAs with residual R hemiparesis [most recent in 07/2024 and 08/2024], Meniere's disease, GERD, vitamin D deficiency, chronic anemia [baseline Hgb 8-10], severe malnutrition, DEREK, vertigo, splenomegaly, history of ESBL E. coli infection who presented to the ED via EMS from [facility] on 11/12/24 with complaints of N/V/D and was admitted for this. Recently admitted 10/11/24-10/17/24 for new-onset afib w/ RVR, electrolyte imbalances 2/2 diarrhea [stool testing neg], acute bronchitis s/p tx with doxycycline and acute on chronic anemia. Patient was DC to [facility] for rehab services following that admission. Nausea and vomiting Diarrhea Likely viral gastroenteritis Stool PCR and C. diff negative CTAP on admission: nondilated bowel loops, mild diffuse wall thickening involving the colon/distal small bowel suggesting enteritis and/or ileus Nausea, vomiting, diarrhea resolved with supportive care Still intermittent mild abdominal pain - recommend bland diet and Miralax and Fiber to be given PRN instead of daily until symptoms fully resolve Given admission one month ago for similar symptoms, recommend follow up with PCP and consideration of referral to GI if symptoms recur again Discharged to [facility] for remainder of rehab stay PAF anticoagulated on Eliquis Continue Eliquis and metoprolol GERD Continue PPI Hyperlipidemia Continue statin Hypothyroidism Continue levothyroxine History of vertigo Continue meclizine Anxiety Continue buspirone Patient seen in collaboration with Dr Salmeron. Please see addendum. Notes For Next Care Provider 79 year old female with significant PMH who was admitted at [facility] from 11/12-11/16/2024 with N/V/D presumed to be viral gastroenterit is. Stool studies and C diff negative. Symptoms resolved with supportive care. Patient still having intermittent mild abdominal pain. Recommend bland diet and PRN use of Miralax and Fiber until symptoms fully resolve. Discharged back to [facility] for continued rehab following previous hospitalization in October. Advise close follow up with PCP and consideration of referral to GI if symptoms recur again given admission one month ago for similar symptoms. Medication Changes From Visit Miralax and Fiber PRN instead of daily Admission HPI Per Admitting Provider History obtained from patient and records. Medical history significant for chronic diastolic heart failure (EF 60 to 65%, TTE 2024), A-fib on Eliquis, NSVT, valvular heart disease (mild TR/AR), hypertension, pulmonary hypertension, CVA, hypothyroidism, prediabetes, chronic anemia (baseline hemoglobin of 9-10), chronic vertigo on meclizine, anxiety/mood disorder, history ESBL. Recent confinement last month for new onset A-fib in the setting of acute bronchitis. Patient discharged on Eliquis for A-fib and doxycycline course for bronchitis. Recent ER visit for palpitations. Patient with nausea, vomiting, watery diarrhea symptoms since yesterday. Achy abdominal pain. Denies headache, chest pain, SOB. No improvement despite Imodium Rx at longterm. Medical History as above Surgical History : Knee surgery, hernia repair Family History : Heart disease, DM, Parkinson syndrome, stroke, suicide Personal/Social history : Non-smoker, no EtOH intake, longterm resident Admission Exam Per Admitting Provider GENERAL: Comfortable, no respiratory distress SKIN: Pallor, warm HEENT: bespectacled, pale palpebral conjunctivae, no ptosis, dry buccal mucosa NECK : Supple, no tenderness CHEST : CTA, no tenderness HEART : RRR, no obvious murmurs ABDOMEN: Some distention, central abdominal tenderness EXTREMITIES : Minimal no LE swelling, no LE tenderness, palpable pulses, no other conspicuous deformities noted NEUROLOGIC : Coherent, no facial asymmetry, no other gross focality Discharge Exam General/Psych: WD/WN, sitting up in chair, NAD, conversing easily Head: normocephalic, atraumatic Eyes: normal inspection, PERRL, conjunctivae pink ENT: external ear and nose normal, oropharynx normal Neck: normal visual inspection, trachea midline Respiratory: normal respiratory effort, lungs clear to auscultation, no wheeze/rales/rhonchi, no accessory muscle use Cardiovascular: regular rate and rhythm, no murmur/rub/gallop, no JVD Extremities: no cyanosis or clubbing, normal peripheral pulses, no BLE edema Abdomen/GI: normal bowel sounds, soft, slightly tender on palpation Neurologic/MSK: A+Ox3, motor strength 5/5, moves all extremities Skin: no rashes, normal color, warm and dry Updated Medication List Medication Instructions Recorded Confirmed Type levothyroxine 100 mcg tablet 100 mcg PO DAILYBB 07/31/24 11/12/24 History atorvastatin 40 mg tablet 40 mg PO QAM #0 tabs 08/02/24 11/12/24 Rx cyanocobalamin (vitamin B-12) 1,000 mcg PO QAM 10/11/24 11/12/24 History 1,000 mcg tablet (Vitamin B-12) meclizine 12.5 mg tablet 12.5 mg PO TID 10/11/24 11/12/24 History buspirone 5 mg tablet 5 mg PO TID #90 tabs 10/17/24 11/12/24 Rx ergocalciferol (vitamin D2) 1,250 1,250 mcg PO Q7D #7 caps 10/17/24 11/12/24 Rx mcg (50,000 unit) capsule acetaminophen 300 mg-codeine 30 mg 2 tab PO Q6 PRN pain,moderate & 11/12/24 11/12/24 History tablet severe apixaban 2.5 mg tablet (Eliquis) 2.5 mg PO AMHS 11/12/24 11/12/24 History calcium carbonate (Tums) 500 mg PO AMHS 11/12/24 11/12/24 History metoprolol succinate 25 mg 25 mg PO AMHS 11/12/24 11/12/24 History tablet,extended release 24 hr metoprolol succinate 50 mg 50 mg PO AMHS 11/12/24 11/12/24 History tablet,extended release 24 hr pantoprazole 40 mg tablet,delayed 40 mg PO AMHS 11/12/24 11/12/24 History release polyethylene glycol 3350 17 17 g PO QAM 11/12/24 11/12/24 History gram/dose oral powder (Miralax) potassium chloride 20 mEq 20 meq PO QAM 11/12/24 11/12/24 History tablet,extended release(part/cryst) psyllium husk 0.52 gram capsule 0.52 g PO DAILY 11/12/24 11/12/24 History (Fiber-Caps (psyllium husk)) Hospital Stay Data Consultations 11/12/24 23:54 ED Decision to Admit Stat Diagnostic Imagining Performed Abdomen/Pelvis CT 11/12/24 19:40 Exam(s): CT ABDOMEN + PELVIS With Contrast IV Amt: 90 ml optiray 320 EXAM: CT Abdomen and Pelvis With Intravenous Contrast CLINICAL HISTORY: Reason for exam: abdominal pain, N/V/D. TECHNIQUE: Axial computed tomography images of the abdomen and pelvis with intravenous contrast. CTDI is 10 mGy and DLP is 476 mGy-cm. Automated exposure control was utilized for the study. A dose lowering technique was utilized adhering to the principles of ALARA. CONTRAST: Patient received 90 ml optiray 320 of IV contrast COMPARISON: 08/26/2024 FINDINGS: Lung bases: Small amount of bibasilar atelectasis. Heart: Mild cardiomegaly and moderate coronary calcification involving all coronary vessels. ABDOMEN: Liver: Unremarkable. No mass. Gallbladder and bile ducts: Previous cholecystectomy with pneumobilia. The biliary tree is nondilated. Pancreas: Unremarkable. No mass. No ductal dilation. Spleen: Unremarkable. No splenomegaly. Adrenals: Unremarkable. No mass. Kidneys and ureters: Unremarkable. No solid mass. No hydronephrosis. Stomach and bowel: Bowel loops are nondilated. There is mild diffuse wall thickening involving the colon and to a lesser degree distal small bowel suggesting enteritis and/or ileus. No pneumoperitoneum, free fluid, or abscess is seen. PELVIS: Appendix: The appendix is not visible. Bladder: Unremarkable. No mass. Reproductive: The uterus is absent. ABDOMEN and PELVIS: Intraperitoneal space: See above. Bones/joints: [id number] degenerative changes throughout the spine. There is a new 30% compression fracture involving the inferior endplate of T12, likely chronic. No dislocation. Soft tissues: Unremarkable. Vasculature: The abdominal aorta is heavily calcified but nondilated. There is no aneurysm or dissection. Lymph nodes: Unremarkable. No enlarged lymph nodes. IMPRESSION: Bowel loops are nondilated. There is mild diffuse wall thickening involving the colon and to a lesser degree distal small bowel suggesting enteritis and/or ileus. No pneumoperitoneum, free fluid, or abscess is seen. Electronically signed by: Jadon Mayorga MD 11/12/24 23:47 PM Chest X-Ray 11/12/24 19:40 Chest radiograph, one view History: Abdominal pain Comparison: None Findings: Single AP view of the chest performed. No focal consolidation or pleural effusion. No pneumothorax. The cardiomediastinal silhouette is within normal limits. Normal pulmonary vascularity. No evidence for lymphadenopathy. No visualized bony or soft tissue abnormality. Impression: Normal chest radiograph Electronically signed by Marc Carroll 11-12-2024 8:31 PM KUB X-Ray 11/13/24 09:29 KUB HISTORY: Acute generalized abdominal pain C/f ileus vs SBO COMPARISON: CT 11/12/2024 FINDINGS: Cholecystectomy. Nonobstructive bowel gas pattern. Contrast in the urinary bladder lumen. No renal calculi. No ureteral calculi. No pneumoperitoneum or pneumatosis. Mild lumbar levoscoliosis. No fracture. IMPRESSION: Nonobstructive bowel gas pattern. ACT 112: Negative or not required by law. The above report was generated using voice recognition software. It may contain grammatical, syntax or spelling errors. Electronically signed by: Ronaldo Adams M.D. 11/13/2024 11:00 AM Pending Results Patient Have Any Pending Studies at Discharge: No Discharge Instructions Given to Patient (Per Discharging Provider) You were admitted to [facility] for further evaluation of nausea, vomiting and diarrhea. Stool testing was performed, including Clostridium difficile (C. diff) studies, which all came back NEGATIVE. It is suspected that you likely have acute viral gastroenteritis. Viral gastroenteritis, often called the "stomach flu," is a common infection that causes inflammation of the stomach and intestines, leading to symptoms like diarrhea, vomiting, and abdominal pain. It's usually caused by a virus and is highly contagious, spreading through close contact or contaminated surfaces. We recommend you continue to eat a bland diet until your symptoms fully resolve and drink plenty of fluids. Recommend washing your hands frequently to avoid recurrence. MEDICATION CHANGES: Miralax and Fiber PRN instead of daily SUMMARY OF TEST RESULTS: CT scan of abdomen revealed inflammation of the intestines consistent with enteritis Chest x-ray normal Abdominal x-ray normal PENDING TEST RESULTS: None RECOMMENDATIONS FOR FOLLOW-UP: Please follow up with your PCP after being hospitalized and discuss with them about your symptoms recurring after last admission one month ago. If this continues to be a problem, you may need referred to a Conservation Coordinator for further work up. OTHER INSTRUCTIONS: Seek medical attention if you have: * temperature above 101 * chest pain or trouble breathing * abdominal pain, nausea, vomiting * diarrhea, dark stools or bloody stools * any unanswered questions or concerns Call 911 if symptoms are severe. It has been a pleasure taking care of you. Please take care of yourself. If you have any questions regarding your recent hospitalization please contact [facility] and request [facility] Hospitalist @ [phone]. Total Time Total Time Spent Total Time Spent (In Minutes): I spent a total of 35 minutes coordinating, documenting and providing care for this patient excluding time spent in the performance of separately billed services or time spent by another provider/QHP. Supervising Physician Co-Signing Physician Notes Pt seen and examined by me, care coordinated with IFTIKHAR Gold, pls refer to her note above for further detail. Pt currently sitting up in chair in NAD, she is eating lunch. Reports that diarrhea has resolved and nausea has resolved, overall she is feeling well. Pt is breathing comfortably on RA, regular heart sounds, abdomen soft, nontender. Pt is awake , alert, answers appropriately. Discussed not to use miralax if she is having diarrhea and only use it as needed. Recommend close follow up with PCP. If symptoms recur again, may consider GI referral, given recent admission with similar symptoms. MD Jaron
[2024-11-16 14:30] VITALS: PULSE 97
== END 2024-11-16 15:02 | DRG 392 ==
LOC: ED 19:07 → 3N 19:07 → SUATTDRO 11-13 14:43